=== PATIENT | female | born 1945 | race Caucasian/White ===

== ENCOUNTER 2024-10-20 12:02 | Emergency (ER) | payer MEDICARE, OTHER, SELFPAY ==
--- NOTE | ~2024-10-20 | XR_ITS ---
EXAMINATION: XR shoulder LT min 2V DATE: 10/20/2024 12:53 INDICATION: Pain. Cannot raise arm TECHNIQUE: 4 images of the left shoulder were obtained. COMPARISON: None FINDINGS: Bones appear osteopenic. Patchy consolidations in the lower lungs. 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 Moderate degenerative change in the left glenohumeral joint. Narrowing of the subacromial joint space. 5 mm radiodensity density in the subacromial bursa possibly calcification from calcific tendinitis. No dislocation of the left humeral head relative to the left glenohumeral joint. IMPRESSION: 1. No fracture. 2. 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 3. Moderate degenerative change in the left glenohumeral joint. 4. Narrowing of the left subacromial joint. Differential includes artifact from positioning versus rotator cuff pathology. 5. There is a 5 mm radiopaque density in the subacromial bursa possibly a calcification from calcific tendinitis. 6. Nonspecific patchy consolidations in the lower lobes. Frontal and lateral images of the chest is recommended for further assessment. Reviewed, dictated and finalized at location Q. IMPRESSION: 1. No fracture. 2. 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 3. Moderate degenerative change in the left glenohumeral joint. 4. Narrowing of the left subacromial joint. Differential includes artifact from positioning versus rotator cuff pathology. 5. There is a 5 mm radiopaque density in the subacromial bursa possibly a calci fication from calcific tendinitis. 6. Nonspecific patchy consolidations in the lower lobes. Frontal and lateral im ages of the chest is recommended for further assessment.
--- NOTE | ~2024-10-20 | XR_ITS ---
EXAMINATION: XR chest 2V 10/20/2024 13:20 INDICATION: Pulmonary findings TECHNIQUE:Frontal and lateral images of the chest were obtained. COMPARISON: None available at this time. FINDINGS: Small opacities in the lower lungs. Heart is mildly enlarged. No pneumothorax. No pleural effusion. No free air under the diaphragm. There is a 8 mm nodular density projecting over the right upper lobe. Differential includes pulmonary nodule or vessel on end. A chest CT is recommended. IMPRESSION: 1: There is a 8 mm nodular density projecting over the right upper lobe. Differential includes pulmonary nodule or vessel on end. A chest CT is recommended. 2. Small opacities in the mid and lower lungs which represents atelectasis/scarring or infiltrates. Reviewed, dictated and finalized at location Q. IMPRESSION: 1: There is a 8 mm nodular density projecting over the right upper lobe. Diffe rential includes pulmonary nodule or vessel on end. A chest CT is recommended. 2. Small opacities in the mid and lower lungs which represents atelectasis/scar ring or infiltrates.
[2024-10-20 12:07] VITALS: BP 145/60; PULSE 70; RESP 16; TEMP 36.4; O2SAT 98
[2024-10-20] MEDS: AZITHROMYCIN 500 MG TABLET PO (13:41)
--- OUTSIDE RECORDS SUMMARY | 2024-10-20 14:14 | XMS_ITS | Patient Health Record ---
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 Name Role Phone Philly Moser Primary Care Provider [phone] Ruth Ann Pan Unavailable [phone] Allergies No Known Allergies Results Component Value Reference Range Notes Hemoglobin A1c Reviewed date:05/29/2024 10:43:25 AM Interpretation: Performing Lab: Notes/Report: Basic Metabolic Panel (8) Reviewed date:05/29/2024 10:43:16 AM Interpretation: Performing Lab: Notes/Report: Reason For Referral No Information Medications Medication SIG (Take, Route, Frequency, Duration) Notes Start Date End Date Status Eliquis 5 MG Tablet 1 tablet Orally twic e a day Active Ketoconazole 2 % Cream 1 application Ext ernally twice a day Active Metoprolol Tartrate 50 MG Tablet 1 tablet with food Orally Twice a day Active Desmopressin Acetate 0.1 MG Tablet 1-2 tablets Orally once a day as needed Active Diclofenac Sodium 1 % Gel as directed Externally four times a day As needed Active A&D - Ointment as directed External ly daily Active Docusate Sodium 100 MG Capsule 1 capsule as needed Orally twice a day Active Losartan Potassium 100 MG Tablet 1 tablet Orally Once a day Active HM Antacid/Antigas 200-200-20 MG/5ML Suspension 10 mL as needed Orally Four times a day Active NIFEdipine ER 60 MG Tablet Extended Release 24 Hour 1 tablet on an empty stomach Orally Once a day Active hydrOXYzine HCl 10 MG Tablet 2 tablets Orally Once a day As needed Active Escitalopram Oxalate 10 MG Tablet 1 tablet Orally Once a day Active traMADol HCl 50 MG Tablet 1 tablet as ne eded Orally every 8 hrs Active Ergocalciferol 1.25 MG (73051 UT) Capsule 1 capsule Orally once a week Active Bumetanide 2 MG Tablet 1 tablet Orally t wice a day Active Immunizations Vaccine Route Administration Date Status Comme nts Pfizer COVID-19 Vaccine Unknown 10/22/2020 Administered Pfizer COVID-19 Vaccine Unknown 11/12/2020 Administered Social History Tobacco Use: Social History Observation Description Date Details (start date - stop date) Never Smoker NA - NA Social History Drug/Alcohol: Social Info Question Answer Notes Drugs Have you used drugs other than those for medical reasons in the past 12 months? No AUDIT-C (Standard) Did you have a drink containing alcohol in the past year? No Points 0 Interpretation Negative Tobacco Use: Social Info Question Answer Notes Tobacco Control (Standard) Tobacco use: Nonsmoker Tobacco use other than smoking: Are you an other tobac co user? No Problems Problem Type SNOMED Code ICD Code Onset Dates Problem Status W/U Status Risk Notes Problem Subclinical iodine deficiency hypothyroidism (disorder) (725697153) Subclinical iodine-deficiency hypothyroidism (E02) Active confirmed Problem Vitamin D deficiency (24637267) Vitamin D deficiency, unspecified (E55.9) Active confirmed Problem Recurrent major depression (55680702) Major depressive disorder, recurrent, unspecified (F33.9) Active confirmed Problem Hypertensive heart AND chronic kidney disease with congestive heart failure (35880056705612) Hypertensive heart and chronic kidney disease with heart failure and stage 1 through stage 4 chronic kidney disease, or unspecified chronic kidney disease (I13.0) Active confirmed Problem Heart disease (23332041) Heart disease, unspecified (I51.9) Active confirmed Problem Atherosclerosis of aorta (37660219) Atherosclerosis of aorta (I70.0) Active confirmed Problem Essential hypertension (22012138) Essential hypertension (I10) Active confirmed Problem Chronic diastolic heart failure (662557660) Chronic heart failure with preserved ejection fraction (I50.32) Active confirmed Problem Atrial fibrillation (40136996) Atrial fibrillation, unspecified type (I48.91) Active confirmed Problem Type II diabetes mellitus without complication (377548781) Controlled type 2 diabetes mellitus without complication, without long-term current use of insulin (E11.9) Active confirmed Problem Personal risk factor (899879209) Compliance with medication regimen (Z91.89) Active confirmed Vital Signs Heart Rate 68 /min 08/01/2024 Temperature 97.6 degrees Fahrenheit 08/01/2024 Respiratory Rate 16 /min 08/01/2024 Oximetry 100 % 08/01/2024 Blood pressure diastolic 66 mm Hg 08/01/2024 Blood pressure systolic 126 mm Hg 08/01/2024 Encounters Encounter Location Date Provider Diagnosis [address] [address] 10/30/2023 Philly Moser Atrial fibrillation, unspecified type I48.91 ; Essential hypertension I10 ; Chronic heart failure with preserved ejection fraction I50.32 ; Hypertensive heart and chronic kidney disease with heart failure and stage 1 through stage 4 chronic kidney disease, or unspecified chronic kidney disease I13.0 ; Atherosclerosis of aorta I70.0 ; Subclinical iodine-deficiency hypothyroidism E02 ; Vitamin D deficiency, unspecified E55.9 ; Major depressive disorder, recurrent, unspecified F33.9 and Controlled type 2 diabetes mellitus without complication, without long-term current use of insulin E11.[address] [address] 02/08/2024 Philly Moser Essential hypertensi on I10 ; Controlled type 2 diabetes mellitus without complication, without long-term current use of insulin E11.9 ; Atrial fibrillation, unspecified type I48.91 ; Chronic heart failure with preserved ejection fraction I50.32 ; Hypertensive heart and chronic kidney disease with heart failure and stage 1 through stage 4 chronic kidney disease, or unspecified chronic kidney disease I13.0 ; Atherosclerosis of aorta I70.0 ; Subclinical iodine-deficiency hypothyroidism E02 ; Vitamin D deficiency, unspecified E55.9 and Major depressive disorder, recurrent, unspecified F33.9 Lavelle Ribeiro [place] [address] [place] [address] 03/11/2024 Philly Moser Compliance with medication regimen Z91.[address] [address] 05/08/2024 Ruth Ann Pan Essential hypertensi on I10 ; Controlled type 2 diabetes mellitus without complication, without long-term current use of insulin E11.9 ; Atrial fibrillation, unspecified type I48.91 ; Chronic heart failure with preserved ejection fraction I50.32 ; Hypertensive heart and chronic kidney disease with heart failure and stage 1 through stage 4 chronic kidney disease, or unspecified chronic kidney disease I13.0 ; Atherosclerosis of aorta I70.0 ; Subclinical iodine-deficiency hypothyroidism E02 ; Vitamin D deficiency, unspecified E55.9 and Major depressive disorder, recurrent, unspecified F33.[address] [address] 08/01/2024 Ruth Ann Maxim Essential hypertensi on I10 ; Controlled type 2 diabetes mellitus without complication, without long-term current use of insulin E11.9 ; Atrial fibrillation, unspecified type I48.91 ; Chronic heart failure with preserved ejection fraction I50.32 ; Hypertensive heart and chronic kidney disease with heart failure and stage 1 through stage 4 chronic kidney disease, or unspecified chronic kidney disease I13.0 ; Atherosclerosis of aorta I70.0 ; Subclinical iodine-deficiency hypothyroidism E02 ; Vitamin D deficiency, unspecified E55.9 ; Major depressive disorder, recurrent, unspecified F33.9 and Nail fungus B35.[address] [address] 02/08/2024 Phillymarci Moser [address] [address] 05/30/[address] [address] 07/31/2024 Ruth Ann [facility] [address] [id number] 08/01/[address] [address] 08/04/2024 Ruth Ann Davis Assessments Encounter Date Diagnosis (ICD Code) Assessment Notes Treatment Notes Treatment Clinical Notes Section Notes 08/01/2024 Essential hypertension (ICD-10 - I10) BP stable. Well managed on current medication regimen. Continue with current treatment plan and monitoring. 03/11/2024 Compliance with medication regimen (ICD-10 - Z91.89) Patient nurse if concerned about patient being non-compliant with her medications due to recent weight gain. Patient states she has been taking her medication routinely and has not missing doses. We discussed the importance of her Bumex and the events that could occur if she was non-compliant. Understanding was verbalized by patient. 02/08/2024 Essential hypertension (ICD-10 - I10) BP stable but slightly elevated this visit. Denies signs or symptoms. Continue current medication regimen. Obtain BP BID x 1 week and forward results to office for provider to further review. 02/08/2024 Controlled type 2 diabetes mellitus without complication, without long-term current use of insulin (ICD-10 - E11.9) Last A1C 6.7% on 10/12/23. Denies symptoms of hypo/hyper glycemia. Not on medications. Well controlled with diet. Continue current treatment plan and monitoring. 05/08/2024 Essential hypertension (ICD-10 - I10) BP stable. Well managed on current medication regimen. Continue with current treatment plan and monitoring. 10/30/2023 Essential hypertension (ICD-10 - I10) BP stable but slightly elevated this visit. Denies signs or symptoms. Hypertensive end-organ damage includes kidney disease and heart failure. Continue current medication regimen. Obtain BP daily x 1 week and fax results to office. 10/30/2023 Atrial fibrillation, unspecified type (ICD-10 - I48.91) Rate controlled. Patient taking Eliquis. Denies symptoms of bleeding. On metoprolol for rate control. Well managed with current medication regimen. Continue current treatment plan and monitoring. 10/30/2023 Chronic heart failure with preserved ejection fraction (ICD-10 - I50.32) Denies signs or symptoms of fluid overload. 2+ edema noted to BLEs. Patient states edema is chronic. She is taking Bumex 2mg PO BID. Denies adverse signs or symptoms. Encouraged use of pneumatic compression stockings. Obtain CMP next lab draw date. 05/08/2024 Controlled type 2 diabetes mellitus without complication, without long-term current use of insulin (ICD-10 - E11.9) Last A1C 6.7% on 10/12/23. Denies symptoms of hypo/hyper glycemia. Not on medications. Well controlled with diet. Continue current treatment plan and monitoring. Draw A1C on next lab day. 08/01/2024 Controlled type 2 diabetes mellitus without complication, without long-term current use of insulin (ICD-10 - E11.9) A1C 6.7% on 10/12/23. Denies symptoms of hypo/hyper glycemia. Continue current treatment plan and monitoring. 05/14/24 A1C= 7.4% which was a slight increase, at the time of results wanted to start her on Jardiance 10mg daily, but patient wanted to try diet and exercise. A1C is due in August, to update when resulted. 02/08/2024 Atrial fibrillation, unspecified type (ICD-10 - I48.91) Rate controlled. Patient taking Eliquis. Denies symptoms of bleeding. On metoprolol for rate control. Well managed with current medication regimen. Continue current treatment plan and monitoring. 08/01/2024 Atrial fibrillation, unspecified type (ICD-10 - I48.91) Rate controlled. Patient taking Eliquis. Denies symptoms of bleeding. On metoprolol for rate control. Well managed with current medication regimen. Continue current treatment plan and monitoring. 08/01/2024 Chronic heart failure with preserved ejection fraction (ICD-10 - I50.32) Denies signs or symptoms of fluid overload. No edema noted to BLEs. She is taking Bumex 2mg PO BID. Denies adverse signs or symptoms. 02/08/2024 Chronic heart failure with preserved ejection fraction (ICD-10 - I50.32) Denies signs or symptoms of fluid overload. 2+ edema noted to BLEs. Patient states edema is chronic. She is taking Bumex 2mg PO BID. Denies adverse signs or symptoms. Encouraged use of pneumatic compression stockings. Last BNP 02/07/24 -368. New order provided to increase Bumex to 2mg PO TID x 3 days for increased edema. 10/30/2023 Hypertensive heart and chronic kidney disease with heart failure and stage 1 through stage 4 chronic kidney disease, or unspecified chronic kidney disease (ICD-10 - I13.0) Denies signs or symptoms. Well managed with current treatment plan. Last Cr 0.87 and eGFR 67 on 04/19/23. Avoid oral NSAIDs. 05/08/2024 Atrial fibrillation, unspecified type (ICD-10 - I48.91) Rate controlled. Patient taking Eliquis. Denies symptoms of bleeding. On metoprolol for rate control. Well managed with current medication regimen. Continue current treatment plan and monitoring. 10/30/2023 Atherosclerosis of aorta (ICD-10 - I70.0) Denies signs or symptoms. Delfin does not want to follow up with cardiology to discuss further management at this time. 05/08/2024 Chronic heart failure with preserved ejection fraction (ICD-10 - I50.32) Denies signs or symptoms of fluid overload. No edema noted to BLEs. She is taking Bumex 2mg PO BID. Denies adverse signs or symptoms. 02/08/2024 Hypertensive heart and chronic kidney disease with heart failure and stage 1 through stage 4 chronic kidney disease, or unspecified chronic kidney disease (ICD-10 - I13.0) Denies signs or symptoms. Well managed with current treatment plan. Last CMP 02/07/24- BUN-37, Commercial Drafter-1.1, eGFR-52. Avoid nephrotoxic medications when able. 08/01/2024 Hypertensive heart and chronic kidney disease with heart failure and stage 1 through stage 4 chronic kidney disease, or unspecified chronic kidney disease (ICD-10 - I13.0) Denies signs or symptoms. Well managed with current treatment plan. Last BMP 05/14/24 BUN-29, Commercial Drafter-1.0, eGFR-55. Avoid nephrotoxic medications when able. 08/01/2024 Atherosclerosis of aorta (ICD-10 - I70.0) Denies signs or symptoms. Patient does not want to follow up with cardiology to discuss further management at this time. 02/08/2024 Atherosclerosis of aorta (ICD-10 - I70.0) Denies signs or symptoms. Delfin does not want to follow up with cardiology to discuss further management at this time. 10/30/2023 Subclinical iodine-deficiency hypothyroidism (ICD-10 - E02) Last TSH and FT4 04/19/23. TSH- 6.04 and FT4 1.21. Denies signs or symptoms. Obtain TSH w/reflux next lab draw date. 05/08/2024 Hypertensive heart and chronic kidney disease with heart failure and stage 1 through stage 4 chronic kidney disease, or unspecified chronic kidney disease (ICD-10 - I13.0) Denies signs or symptoms. Well managed with current treatment plan. Last CMP 02/07/24- BUN-37, Commercial Drafter-1.1, eGFR-52. Avoid nephrotoxic medications when able. Draw BMP on next lab day. 05/08/2024 Atherosclerosis of aorta (ICD-10 - I70.0) Denies signs or symptoms. Patient does not want to follow up with cardiology to discuss further management at this time. 10/30/2023 Vitamin D deficiency, unspecified (ICD-10 - E55.9) Well managed with current medication regimen. Denies recent falls or injuries. Obtain Vitamin D level next lab draw date. 02/08/2024 Subclinical iodine-deficiency hypothyroidism (ICD-10 - E02) Last TSH 11/01/23- WNL. Denies signs or symptoms. Continue current treatment plan and monitoring. 08/01/2024 Subclinical iodine-deficiency hypothyroidism (ICD-10 - E02) Last TSH 11/01/23- WNL. Denies signs or symptoms. Continue current treatment plan and monitoring. 08/01/2024 Vitamin D deficiency, unspecified (ICD-10 - E55.9) Last vitamin D level 11/01/23- WNL. Well managed with current medication regimen. Denies recent falls or injuries. Continue current treatment plan. Order given to have Vit D level drawn when A1C is due. 02/08/2024 Vitamin D deficiency, unspecified (ICD-10 - E55.9) Last vitamin D level 11/01/23- WNL. Well managed with current medication regimen. Denies recent falls or injuries. Continue current treatment plan. 10/30/2023 Major depressive disorder, recurrent, unspecified (ICD-10 - F33.9) Denies symptoms at this time. Per staff patient became more depressed after her passed way in September 2022. Escitalopram initiated by previous provider earlier this year and effective. Continue current treatment plan and monitoring. 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 Denies signs or symptoms. Continue current treatment plan and monitoring. 05/08/2024 Vitamin D deficiency, unspecified (ICD-10 - E55.9) Last vitamin D level 11/01/23- WNL. Well managed with current medication regimen. Denies recent falls or injuries. Continue current treatment plan. 02/08/2024 Major depressive disorder, recurrent, unspecified (ICD-10 - F33.9) Denies symptoms at this time. Per staff patient became more depressed after her passed way in September 2022. Escitalopram initiated by previous provider earlier this year and effective. Continue current treatment plan and monitoring. 08/01/2024 Major depressive disorder, recurrent, unspecified (ICD-10 - F33.9) Denies symptoms at this time. Well managed on current medication regimen. Continue with current treatment plan and monitoring. 10/30/2023 Controlled type 2 diabetes mellitus without complication, without long-term current use of insulin (ICD-10 - E11.9) Last A1C 6.7% on 10/12/23. Not on medications. Well controlled with diet. Continue current treatment plan and monitoring. 08/01/2024 Nail fungus (ICD-10 - B35.1) Finger nail on left pointer finger is coming up with thick white/yellow build up noted. Script sent for Terbinafine HCL 1% cream apply BID x 4 weeks. _update provider on how the finger nail looks after the 4 weeks. 05/08/2024 Major depressive disorder, recurrent, unspecified (ICD-10 - F33.9) Denies symptoms at this time. Well managed on current medication regimen. Continue with current treatment plan and monitoring. 10/30/2023 Other Obtain CBC, CMP, Vitamin D, TSH w/reflux. Fax results to office. Continue current treatment plan. Staff to continue to monitor and report any changes. Patient education provided and questions/concern s addressed. Follow up in three months unless necessary sooner. 03/11/2024 Other Continue current treatment plan. Staff to continue to monitor and report any changes. Patient education provided and questions/concern s addressed. Follow up in three months unless necessary sooner. 02/08/2024 Other Continue current treatment plan. Staff to continue to monitor and report any changes. Patient education provided and questions/concern s addressed. Follow up in three months unless necessary sooner. 05/08/2024 Other Continue current treatment plan. Staff to continue to monitor and report any changes. Patient education provided and questions/concern s addressed. Follow up in three months unless necessary sooner. Please refer to facility EHR for current and accurate medication list and treatments. Reviewed HIPAA Right to Privacy Practices with patient/family/ca regiver. 08/01/2024 Other Continue current treatment plan. Staff to continue to monitor and report any changes. Patient education provided and questions/concern s addressed. Follow up in three months unless necessary sooner. Reviewed HIPAA Right to Privacy Practices with patient/family/ca regiver. Plan Of Treatment Pending Test Test Name Order Date Hemoglobin A1c 02/13/2025 Insurance Providers Payer Name Payer Address Payer Phone Subscriber Number Group Number Insured Name Patient Relationship to Insured Coverage Start Date Coverage End Date [employer] of [place] [address] [employer] [id number] Gaby Carey Self - patient is the insured Medical (General) History Medical History History ICD Code Atrial fibrillation, unspecified type I4 8.91 Hypertensive heart and chron ic kidney disease with heart failure and stage 1 through stage 4 chronic kidney disease, or unspecified chronic kidney disease I13.0 Major depressive disorder, recurrent, un specified F33.9 Atherosclerosis of aorta I70.0 Morbid obesity E66.01 Hypertension, unspecified type I10 Chronic heart failure with preserved eje ction fraction I50.32 Vitamin D deficiency, unspecified E55.9 Prediabetes R73.03 Subclinical iodine-deficiency hypothyroi dism E02 Nocturnal enuresis N39.44 Arthritis of both knees M17.0 Oxygen desaturation R09.02 Heart disease, unspecified I51.9 Surgical History Surgery Date(Month/Year) COLONOSCOPY 2013 HYSTERECTOMY 1979 KNEE ARTHROPLASTY- RIGHT 2003
--- NOTE | 2024-10-20 15:47 | ED_ITS ---
HPI - General Adult General Chief complaint: Extremity Injury, Upper Stated complaint: L should pain [id number] Time Seen by Provider: 10/20/24 13:02 History of Present Illness HPI narrative: Patient presenting here with 1 month of left shoulder pain, today she tried moving her shoulder and felt like it popped. Related Data Allergies Allergy/AdvReac Type Severity Reaction Status Date / Time No Known Allergies Allergy Verified 10/20/24 12:19 Review of Systems Review of Systems: All systems reviewed & are unremarkable except as noted in HPI and below Exam Narrative: EXAMINATION OF ORGAN SYSTEMS/BODY AREAS: Constitutional: Vital signs per nursing GENERAL:[No acute distress, non-toxic appearing.] HEAD: Normal with no signs of head trauma. EYES: EOMI, conjunctiva normal ENT: Hearing grossly intact LUNGS: Nonlabored breathing. HEART: [Regular rate and rhythm], normal radial pulse ABD: [Soft], [nontender to palpation] EXT: Diminished range of motion to left shoulder with some pain on certain flexion past 60? SKIN: [No rashes or lesions.] NEURO: [Alert and oriented x 3. No gross focal sensory or strength deficits.] PSYCH: Normal affect Course Vital Signs Vital signs: Vital Signs Temperature 97.5 F L 10/20/24 12:07 Pulse Rate 70 10/20/24 12:07 Respiratory Rate 16 10/20/24 12:07 Blood Pressure 145/60 H 10/20/24 12:07 Pulse Oximetry 98 10/20/24 12:07 Oxygen Delivery Room Air 10/20/24 12:07 Temperature 97.5 F L 10/20/24 12:07 Pulse Rate 70 10/20/24 12:07 Respiratory Rate 16 10/20/24 12:07 Blood Pressure 145/60 H 10/20/24 12:07 Pulse Oximetry 98 10/20/24 12:07 Oxygen Delivery Room Air 10/20/24 12:07 Medical Decision Making [facility] Narrative Medical decision making narrative: Patient presents with left shoulder pain, no recent injuries, she does have some pain with range of motion of the left shoulder. X-ray does show calcific tendinitis and possible rotator cuff pathology, also recommendation for chest x- ray. I did discuss this with the patient, she does admit that she has been coughing so x-ray of chest obtained, which shows some consolidations as well as a pulmonary nodule. Discussed this with patient, that she needs follow-up for a CT chest for the pulmonary nodule, she is provided follow-up information for orthopedics as well as a new primary care doctor so she can get established care and follow-up for the pulmonary nodule. Patient agreeable to this plan. Given in person and on paper instructions Vital Signs Vital Signs: Vital Signs Temperature 97.5 F L 10/20/24 12:07 Pulse Rate 70 10/20/24 12:07 Respiratory Rate 16 10/20/24 12:07 Blood Pressure 145/60 H 10/20/24 12:07 Pulse Oximetry 98 10/20/24 12:07 Oxygen Delivery Room Air 10/20/24 12:07 Temperature 97.5 F L 10/20/24 12:07 Pulse Rate 70 10/20/24 12:07 Respiratory Rate 16 10/20/24 12:07 Blood Pressure 145/60 H 10/20/24 12:07 Pulse Oximetry 98 10/20/24 12:07 Oxygen Delivery Room Air 10/20/24 12:07 Discharge Plan Discharge Clinical Impression: Calcific tendinitis, Pulmonary nodules Patient Disposition: Home Condition: Stable Instructions: Calcific Tendinitis (ED), Pulmonary Nodules (ED) Additional Instructions: Please try the medication as prescribed for your shoulder and follow-up with the orthopedic surgeon. Your chest x-ray does show a may have a slight pneumonia, please take the antibiotics, your x-ray also shows a possible spot on your lung, please follow- up with your doctor as you may need to get a CT scan of your chest for further evaluation. Patient Language: Polish Prescriptions: New prednisone 20 mg tablet 40 mg PO DAILY 4 Days Qty: 8 0RF azithromycin 250 mg tablet 250 mg PO DAILY 4 Days Qty: 4 0RF Rx Instructions: start on day 2 of therapy Follow-up/Referrals: PHYSICIAN NOT ON STAFF,NONSTAFF [Non-Staff] Rajan Perdomo MD [Physician, Family Practice] - 2 Days Naveed Frazier MD [Physician, Orthopedics] - 2 Days
== END 2024-10-20 15:03 | disposition home or self-care (01) ==
PROVIDERS: Emergency Provider Emergency Medicine
DX: M75.32 Calcific tendinitis of left shoulder (principal); R91.8 Other nonspecific abnormal finding of lung field
CPT/HCPCS: 71046; 73030; 99284; J7512

== ENCOUNTER 2025-02-13 14:03 | Inpatient (IN) | payer MEDICARE, OTHER, SELFPAY ==
[2025-02-13] VITALS (16 sets, daily range): BP systolic 109–156; BP diastolic 56–102; PULSE 72–90; RESP 14–25; TEMP 36.4–36.6; O2SAT 94–100; BMI 40.4
--- NOTE | ~2025-02-13 | CT_ITS ---
EXAMINATION: CT diagnostic chest wo con DATE: 02/15/2025 22:46 INDICATION: Lung nodule follow-up TECHNIQUE: Computed tomography (CT) of the chest was performed without intravenous contrast. The dose-length product was 614.69 mGy-cm. Automated exposure control and iterative reconstruction technique were employed. COMPARISON: Chest x-ray dated 02/13/2025 FINDINGS: Cardiomegaly. No significant pleural or pericardial effusion. Borderline size right paratracheal lymph node, likely reactive. Enlarged thyroid gland with small hypodense lesions measuring up to 1.7 cm and the left thyroid lobe. Recommend correlation with thyroid ultrasound on a nonemergent basis. There is dependent atelectasis. There are patchy groundglass opacities of the right lung. No endobronchial lesions. There are small pulmonary nodules measuring 2 mm or less, likely benign. There are bilateral areas of interlobular septal thickening. Exaggerated thoracic kyphosis. There is diffuse idiopathic skeletal hyperostosis (DISH) of the thoracic spine. IMPRESSION: 1. Patchy groundglass opacities with bilateral interlobular septal thickening compatible with interstitial lung disease; correlate with clinical history and prior imaging for stability or progression. 2: Cardiomegaly. 3: Enlarged thyroid gland with 1.7 cm hypodense left thyroid nodule. Recommend thyroid ultrasound for further characterization. Reviewed, dictated and finalized at location O. ERCIAL FRONT LOAD OPERATOR IMPRESSION: 1. Patchy groundglass opacities with bilateral interlobular septal thickening c ompatible with interstitial lung disease; correlate with clinical history and p rior imaging for stability or progression. 2: Cardiomegaly. 3: Enlarged thyroid gland with 1.7 cm hypodense left thyroid nodule. Recommend thyroid ultrasound for further characterization.
--- NOTE | ~2025-02-13 | XR_ITS ---
EXAMINATION: XR foot RT 2V, 02/13/2025 16:10 PROGRAMS MANAGER HISTORY: second and third toe pain COMPARISON: No comparisons available. Findings: Severe osteopenia. No acute fracture or osseous destruction. Postsurgical changes noted in the fibula. Moderate to severe degenerative changes. Soft tissues unremarkable. Impression: No acute fracture or malalignment. Reviewed, dictated and finalized at location P. RAMS MANAGER Impression: No acute fracture or malalignment.
--- NOTE | ~2025-02-13 | XR_ITS ---
XR chest 1V INDICATION:. 79 years Female ICU admission COMPARISON: None FINDINGS: A single view of the chest demonstrates enlarged heart. Patchy infiltrates bilaterally. There is no evidence of pneumothorax or pleural effusion. IMPRESSION: There are patchy infiltrates bilaterally. Reviewed, dictated and finalized at location S. ERENCE COORDINATOR
--- OUTSIDE RECORDS SUMMARY | 2025-02-13 16:03 | XMS_ITS | Encounter Summary ---
Author Organization [facility] Healthcare Address [address] [place] [address] Care Team Providers Care Service Desk Agent Name Role Phone Jordin Durán MD Unavailable Som Rivers DO Primary Care Provider [phone] Encounter Details Date Type Department Care Team (Late st Contact Info) Description 02/13/2025 Telephone [facility] Vascular and Vein Surgery [address] [place] [phone] Denisse Longoria, RN Social History Tobacco Use Types Packs/Day Years Used Date Smoking Tobacco: Never Smokeless Tobacco: Never Alcohol Use Standard Drinks/Week Comments No 0 (1 standard drink = 0.6 oz pur e alcohol) OASIS D0700: Social Isolation Answer Da te Recorded Frequency of experiencing loneliness or isolatio n Never 05/16/2023 OASIS A1250: Transportation Answer Date Recorded Lack of Transportation (Medical) No 05/16/2023 Lack of Transportation (Non-Medical) No 05/16/2023 Patient Unable or Declines to Respond No 05/16/2023 OASIS B1300: Health Literacy Answer Jovon e Recorded Frequency of needing help to read materials from doctor or pharmacy Never 05/16/2023 [facility] Utilities Answer Date Recorded In the past 12 months has e [employer], [employer], or [employer] threatened to shut off services in your home? No 04/19/2023 Humiliation, Afraid, Rape, and Kick questionnair e Answer Date Recorded Within the last year, have y ou been afraid of your partner or ex-partner? No 04/19/2023 Within the last year, have y ou been humiliated or emotionally abused in other ways by your partner or ex-partner? No Within the last year, have y ou been kicked, hit, slapped, or otherwise physically hurt by your partner or ex-partner? No 04/19/2023 Within the last year, have y ou been raped or forced to have any kind of sexual activity by your partner or ex-partner? No 04/19/2023 Social Connection and Isolation Panel Answer Date Recorded In a typical week, how many times do you talk on the phone with family, friends, or neighbors? Twice a week 09/20/2022 Frequency of Social Gatherings with Friends and Family Not on file 09/20/2022 Attends Confucianist Services Not on file 09/20 Active Member of Clubs or Organizations Not on f ile 09/20/2022 Attends Club or Organization Meetings Not on les e 09/20/2022 Marital Status Not on file 09/20/2022 AUDIT-C Answer Date Recorded Q1: How often do you have a drink containing alcohol? Never 04/19/2023 Q2: How many drinks containi ng alcohol do you have on a typical day when you are drinking? Patient does not drink Q3: How often do you have si x or more drinks on one occasion? Never 04/19/2023 Overall Financial Resource Strain (CARDIA) Answe r Date Recorded How hard is it for you to pa y for the very basics like food, housing, medical care, and heating? Not hard at all 04/19/2023 PHQ-2 Answer Date Recorded PHQ-2 Total Score 0 04/19/2023 Hunger Vital Sign Answer Date Recorded Within the past 12 months, y ou worried that your food would run out before you got the money to buy more. Never true 04/19/19 24 Within the past 12 months, t he food you bought just didn't last and you didn't have money to get more. Never true 04/19/2023 PRAPARE - Transportation Answer Date Re corded In the past 12 months, has l ack of transportation kept you from medical appointments or from getting medications? No 03/30 In the past 12 months, has l ack of transportation kept you from meetings, work, or from getting things needed for daily living? No 04/19/2023 Housing Stability Vital Sign Answer Jovon e Recorded In the last 12 months, was t here a time when you were not able to pay the mortgage or rent on time? No 04/19/2023 In the last 12 months, how many places have you lived? 1 04/19/2023 In the last 12 months, was t here a time when you did not have a steady place to sleep or slept in a mcc (including now)? 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 Giselle stated she will send a photo of the patient's toes so it can be assessed and then discuss recommendations. Please call Giselle at [phone] RN called Giselle back and recommended the patient to go to the ED since it is a new symptoms of thetoe. AID AID documented in this encounter Plan of Treatment Not on file documented as of this encounter Visit Diagnoses Not on filedocumented in this encounter Care Teams Service Desk Agent Relationship Specialty Start Date End Date Som Rivers DO [address] [place] [id number] PCP - General Internal Medicine 12/18/24 Jordin Durán MD Consulting Physician Cardiology 03/25/20 documented as of this encounter
--- OUTSIDE RECORDS SUMMARY | 2025-02-13 16:03 | XMS_ITS | Patient Health Record ---
Author Organization [facility] Address [address] [place] [id number] Care Team Providers Care Wood Gang Sawyer Name Role Phone Ruth Ann Pan Primary Care Provider Philly Moser Unavailable [phone] Allergies Allergen (clinical drug ingredient) Drug/Non Drug Allergy documented on EMR Reaction Allergy Type Onset Date Status No Known Drug Allergy Unknown Drug Allergy Active Results Component Value Reference Range Notes Ultrasound : Artery Doppler Low Ext Bilat Reviewed date:12/26/2024 10:47:23 AM Interpretation: Performing Lab: Notes/Report: Hemoglobin A1c Reviewed date:05/29/2024 10:43:25 AM Interpretation: Performing Lab: Notes/Report: Basic Metabolic Panel (8) Reviewed date:05/29/2024 10:43:16 AM Interpretation: Performing Lab: Notes/Report: TSH+Free T4 Reviewed date:12/26/2024 10:47:56 AM Interpretation: Performing Lab: Notes/Report: Reason For Referral Reason PVD Diagnosis 1 PVD (peripheral vasc ular disease) (I73.9) Referral Organization [facility] Referring Provider First Name Ruth Ann Referring Provider Last Name Maxim Referred Organization [facility] Referred Address [address], [place],[address], Referred Provider Specialty Vascular Luiz sandra Referral Priority Routine Referral Appointment Date 01/28/2025 Reason Home health for sore on R foot Diagnosis 1 Wound of right foot (S91.301A) Referral Organization [facility] Referring Provider First Name Ruth Ann Referring Provider Last Name Maxim Referred Organization [facility] Referred Address [address], [place],[address] Referred Provider Specialty Other Medica l Care General Notes Lucille Mathis 025 03:30:48 PM 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/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 >[facility] eval 12/18 Referral Priority Routine Referral Appointment Date 12/18/2024 Reason HH to eval and treat for wounds to feet Diagnosis 1 Unspecified open wou nd, unspecified lower leg, initial encounter (J21.727E) Referral Organization [facility] Referring Provider First Name Ruth Ann Referring Provider Last Name Maxim Referred Organization [facility] [place] Referred Address [address] [place], [place],[address],[place] Referred Provider Specialty Other Medica l Care Referral Priority Routine Medications Medication SIG (Take, Route, Frequency, Duration) Notes Start Date End Date Status hydrOXYzine HCl 10 MG Tablet 2 tablets Orally Once a day As needed Active Eliquis 5 MG Tablet 1 tablet Orally twic e a day Active Ketoconazole 2 % Cream 1 application Ext ernally twice a day Active Docusate Sodium 100 MG Capsule 1 capsule as needed Orally twice a day Active Bumetanide 2 MG Tablet 1 tablet Orally t wice a day Active Ergocalciferol 1.25 MG (16255 UT) Capsule 1 capsule Orally once a week Active A&D - Ointment as directed External ly daily Active Losartan Potassium 100 MG Tablet 1 tablet Orally Once a day Active Terbinafine HCl 1 % Cream 1 application Externally twice a day Active Metoprolol Tartrate 50 MG Tablet 1 tablet with food Orally Twice a day Active Cough Drops - Lozenge as directed Mouth/Throat Active Diclofenac Sodium 1 % Gel as directed Externally four times a day As needed Active Acetaminophen 325 MG Tablet 2 tablets Orally every 6 hrs As needed Active HM Antacid/Antigas 200-200-20 MG/5ML Suspension 10 mL as needed Orally Four times a day Active Immunizations Vaccine Route Administration [...] Notes Problem 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) Active confirmed Problem Vitamin D deficiency (61819526) Vitamin D deficiency, unspecified (E55.9) Active confirmed Problem Recurrent major depression (08095930) Major depressive disorder, recurrent, unspecified (F33.9) Active confirmed Problem Hypertensive heart AND chronic kidney disease with congestive heart failure (56739235898400) Hypertensive heart and chronic kidney disease with heart failure and stage 1 through stage 4 chronic kidney disease, or unspecified chronic kidney disease (I13.0) Active confirmed Problem Heart disease (37431080) Heart disease, unspecified (I51.9) Active confirmed Problem Atherosclerosis of aorta (50239965) Atherosclerosis of aorta (I70.0) Active confirmed Problem Essential hypertension (42202010) Essential hypertension (I10) Active confirmed Problem Chronic diastolic heart failure (058226369) Chronic heart failure with preserved ejection fraction (I50.32) Active confirmed Problem Atrial fibrillation (20321650) Atrial fibrillation, unspecified type (I48.91) Active confirmed Problem Hearing loss (42359004) Decreased hearing of both ears (H91.93) Active confirmed Problem Peripheral vascular disease (814861277) PVD (peripheral vascular disease) (I73.9) Active confirmed Problem Type II diabetes mellitus without complication (348292162) Controlled type 2 diabetes mellitus without complication, without long-term current use of insulin (E11.9) Active confirmed Problem Personal risk factor (704664656) Compliance with medication regimen (Z91.89) Active confirmed Vital Signs Heart Rate 82 /min 02/05/2025 Temperature 97.4 degrees Fahrenheit 12/11/2024 Respiratory Rate 18 /min 02/05/2025 Oximetry 92 % 02/05/2025 Blood pressure diastolic 63 mm Hg 02/05/2025 Blood pressure systolic 112 mm Hg 02/05/2025 Encounters Encounter Location Date Provider Diagnosis [facility] [address] [place] [address] 03/11/2024 Philly Moser Compliance with medication regimen Z91.[address] [address] 05/08/2024 Ruth Ann Pan Essential hypertensi on [...] and Major depressive disorder, recurrent, unspecified F33.[address] [address] 08/01/2024 Ruth Ann Pan Essential hypertensi on I10 [...] recurrent, unspecified F33.9 and Nail fungus B35.[address] [address] 10/30/2024 Ruth Ann Pan Essential hypertensi on I10 [...] recurrent, unspecified F33.9 and Nail fungus B35.[address] [address] 11/27/2024 Ruth Ann Pan Decreased hearing of both ears H91.93 [facility] [address] [id number] 12/11/2024 Ruth Ann Pan Skin growth D49.2 [facility] [place] [address] [place] [address] 02/05/2025 Ruth Ann Pan Essential hypertensi on I10 [...] Major depressive disorder, recurrent, unspecified F33.9 and Delayed wound healing T14.8XXD [facility] [place] [address] [place] [address] 05/08/2024 Ruth Ann Pan [facility] [place] [address] [place] [address] 05/30/2024 Ruth Ann Pan [facility] [place] [address] [place] [address] 07/31/2024 Ruth Ann Pan [facility] [address] [id number] 08/01/2024 Ruth Ann Pan [facility] [place] [address] [place] [address] 08/01/2024 Ruth Ann Pan [facility] [place] [address] [place] [address] 08/04/2024 Ruth Ann Pan [facility] [place] [address] [place] [address] 10/30/2024 Ruth Ann Pan [facility] [place] [address] [place] [address] 11/21/2024 Ruth Ann Pan [facility] [address] [id number] 11/27/2024 Ruth Ann Pan [facility] [place] [address] [place] [address] 11/27/2024 Ruth Ann Pan [facility] [place] [address] [place] [address] 12/09/2024 [facility] [address] [id number] 12/11/2024 Ruth Ann Pan [facility] [place] [address] [place] [address] 01/11/2025 Ruth Ann Pan [facility] [place] [address] [place] [address] 01/27/2025 Ruth Ann Pan [facility] [place] [address] [place] [address] 02/02/2025 Ruth Ann Pan [facility] [place] [address] [place] [address] 02/05/2025 Ruth Ann Pan [facility] [place] [address] [place] [address] 02/13/2025 Ruth Ann Pan [facility] [place] [address] [place] [address] 02/13/2025 Ruth Ann Pan Assessments Encounter Date Diagnosis (ICD Code) Assessment Notes Treatment Notes Treatment Clinical Notes Section Notes 02/05/2025 Essential hypertension (ICD-10 - I10) BP stable. Well managed on current medication regimen. Continue with current treatment plan and monitoring. 12/11/2024 Skin growth (ICD-10 - D49.2) Patient reported that she had a sore on her right foot upon examination. It looks to be like an old blood blister on the second toe on the right foot along with what appears to be a growth of some type could be a callus noted to the second and third toe of the right foot. An order was previously given to get arterial Doppler due to check to see if her blood flow is good due to the area not seeming to heal. Patient reports she has had the issue for a few years, but she has never told anybody because she has been trying to take care of it by herself. She reports that the area is sore when it is knocked or hit on anything. Order was given to apply terbinafine 1% b.i.d. to the toes that were affected and also a referral was sent to see a foot doctor. 11/27/2024 Decreased hearing of both ears (ICD-10 - H91.93) Patient has been having a decrease in her hearing. She reports that she is very muffled and hard to understand people at the dining room table. Upon assessment, no wax was noted, but bilateral eardrums did appear cloudy and fluid noted. New order given today for Ciprodex four drops in each ear, b.i.d. x7 days. 10/30/2024 Essential hypertension (ICD-10 - I10) BP stable. Well managed on current medication regimen. Continue with current treatment plan and monitoring. 08/01/2024 Essential hypertension (ICD-10 - I10) BP stable. Well managed on current medication regimen. Continue with current treatment plan and monitoring. 05/08/2024 Essential [...] was non-compliant. Understanding was verbalized by patient. 05/08/2024 Controlled type 2 diabetes mellitus without complication, without long-term current use of insulin (ICD-10 - E11.9) Last A1C 6.7% on 10/12/23. Denies symptoms of hypo/hyper glycemia. Not on medications. Well controlled with diet. Continue current treatment plan and monitoring. Draw A1C on next lab day. 02/05/2025 Controlled type 2 diabetes mellitus without complication, without long-term current use of insulin (ICD-10 - E11.9) A1C 6.7% on 10/12/23. Denies symptoms of hypo/hyper glycemia. Continue current treatment plan and monitoring. 05/14/24 A1C= 7.4% which was a slight increase, at the time of results wanted to start her on Jardiance 10mg daily, but patient wanted to try diet and exercise. On 08/02/2024, A1c was improved at 7.0%. No new orders were given at the time of results. Continue to monitor and repeat A1c in six months. A1c is ordered for next lab day, which will be 02/12/2025 08/01/2024 Atrial fibrillation, unspecified type (ICD-10 - I48.91) Rate controlled. Patient taking Eliquis. Denies symptoms of bleeding. On metoprolol for rate control. Well managed with current medication regimen. Continue current treatment plan and monitoring. 08/01/2024 Controlled type 2 diabetes mellitus without [...] due in August, to update when resulted. 10/30/2024 Controlled type 2 diabetes mellitus without complication, without long-term current use of insulin (ICD-10 - E11.9) A1C 6.7% on 10/12/23. Denies symptoms of hypo/hyper glycemia. Continue current treatment plan and monitoring. 05/14/24 A1C= 7.4% which was a slight increase, at the time of results wanted to start her on Jardiance 10mg daily, but patient wanted to try diet and exercise. On 08/02/2024, A1c was improved at 7.0%. No new orders were given at the time of results. Continue to monitor and repeat A1c in six months. 02/05/2025 Atrial fibrillation, unspecified type (ICD-10 - I48.91) Rate controlled. Patient taking Eliquis. Denies symptoms of bleeding. On metoprolol for rate control. Well managed with current medication regimen. Continue current treatment plan and monitoring. 02/05/2025 Chronic heart failure with preserved ejection fraction (ICD-10 - I50.32) Denies signs or symptoms of fluid overload. No edema noted to BLEs. She is taking Bumex 2mg PO BID. Denies adverse signs or symptoms. 10/30/2024 Atrial fibrillation, unspecified type (ICD-10 - I48.91) [...] PO BID. Denies adverse signs or symptoms. 05/08/2024 Atrial fibrillation, unspecified type (ICD-10 - I48.91) Rate controlled. Patient taking Eliquis. Denies symptoms of bleeding. On metoprolol for rate control. Well managed with current medication regimen. Continue current treatment plan and monitoring. 05/08/2024 Chronic heart failure with preserved ejection fraction (ICD-10 - I50.32) Denies signs or symptoms of fluid overload. No edema noted to BLEs. She is taking Bumex 2mg PO BID. Denies adverse signs or symptoms. 08/01/2024 Hypertensive heart and chronic kidney disease with heart failure and stage 1 through stage 4 chronic kidney disease, or unspecified chronic kidney disease (ICD-10 - I13.0) Denies signs or symptoms. Well managed with current treatment plan. Last BMP 05/14/24 BUN-29, Ball Machine Operator-1.0, eGFR-55. Avoid nephrotoxic medications when able. 02/05/2025 Hypertensive heart and chronic kidney disease with heart failure and stage 1 through stage 4 chronic kidney disease, or unspecified chronic kidney disease (ICD-10 - I13.0) Denies signs or symptoms. Well managed with current treatment plan. Last BMP 05/14/24 BUN-29, Ball Machine Operator-1.0, eGFR-55. Avoid nephrotoxic medications when able. 10/30/2024 Chronic heart failure with preserved ejection fraction (ICD-10 - I50.32) Denies signs or symptoms of fluid overload. No edema noted to BLEs. She is taking Bumex 2mg PO BID. Denies adverse signs or symptoms. 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 Well managed with current treatment plan. Last BMP 05/14/24 BUN-29, Ball Machine Operator-1.0, eGFR-55. Avoid nephrotoxic medications when able. 02/05/2025 Atherosclerosis of aorta (ICD-10 - I70.0) Denies signs or symptoms. Patient does not want to follow up with cardiology to discuss further management at this time. 08/01/2024 Atherosclerosis of aorta (ICD-10 - I70.0) Denies signs or symptoms. Patient does not want to follow up with cardiology to discuss further management at this time. 05/08/2024 Hypertensive heart and chronic kidney disease with heart failure and stage 1 through stage 4 chronic kidney disease, or unspecified chronic kidney disease (ICD-10 - I13.0) Denies signs or symptoms. Well managed with current treatment plan. Last CMP 02/07/24- BUN-37, Ball Machine Operator-1.1, eGFR-52. Avoid nephrotoxic medications when able. Draw BMP on next lab day. 05/08/2024 Atherosclerosis of aorta (ICD-10 - I70.0) Denies signs or symptoms. Patient does not want to follow up with cardiology to discuss further management at this time. 08/01/2024 Subclinical iodine-deficiency hypothyroidism (ICD-10 - E02) Last TSH 11/01/23- WNL. Denies signs or symptoms. Continue current treatment plan and monitoring. 02/05/2025 Subclinical iodine-deficiency hypothyroidism (ICD-10 - E02) Last TSH 11/01/23- WNL. Denies signs or symptoms. Continue current treatment plan and monitoring. TSH and free T4 were drawn on 11/12/2024 and were within normal limits. 10/30/2024 Atherosclerosis of aorta (ICD-10 - I70.0) Denies signs or symptoms. Patient does not want to follow up with cardiology to discuss further management at this time. 10/30/2024 Subclinical iodine-deficiency hypothyroidism (ICD-10 - E02) Last TSH 11/01/23- WNL. Denies signs or symptoms. Continue current treatment plan and monitoring. Draw TSH and free T4 on next lab day. 02/05/2025 Vitamin D deficiency, unspecified (ICD-10 - E55.9) Last vitamin D level 11/01/23- WNL. Well managed with current medication regimen. Denies recent falls or injuries. Continue current treatment plan. On 08/12/2024, vitamin D level was within normal limits. 08/01/2024 Vitamin D deficiency, unspecified (ICD-10 - E55.9) Last vitamin D level 11/01/23- WNL. Well managed with current medication regimen. Denies recent falls or injuries. Continue current treatment plan. Order given to have Vit D level drawn when A1C is due. 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 Denies signs or symptoms. Continue current treatment plan and monitoring. 05/08/2024 Vitamin D deficiency, unspecified (ICD-10 - E55.9) Last vitamin D level 11/01/23- WNL. Well managed with current medication regimen. Denies recent falls or injuries. Continue current treatment plan. 08/01/2024 Major depressive disorder, recurrent, unspecified (ICD-10 - F33.9) Denies symptoms at this time. Well managed on current medication regimen. Continue with current treatment plan and monitoring. 02/05/2025 Major depressive disorder, recurrent, unspecified (ICD-10 - F33.9) Denies symptoms at this time. Well managed on current medication regimen. Continue with current treatment plan and monitoring. 10/30/2024 Vitamin D deficiency, unspecified (ICD-10 - E55.9) Last vitamin D level 11/01/23- WNL. Well managed with current medication regimen. Denies recent falls or injuries. Continue current treatment plan. On 08/12/2024, vitamin D level was within normal limits. 10/30/2024 Major depressive disorder, recurrent, unspecified (ICD-10 - F33.9) Denies symptoms at this time. Well managed on current medication regimen. Continue with current treatment plan and monitoring. 05/08/2024 Major depressive disorder, recurrent, unspecified (ICD-10 - F33.9) Denies symptoms at this time. Well managed on current medication regimen. Continue with current treatment plan and monitoring. 08/01/2024 Nail fungus (ICD-10 - B35.1) Finger nail on left pointer finger is coming up with thick white/yellow build up noted. Script sent for Terbinafine HCL 1% cream apply BID x 4 weeks. _update provider on how the finger nail looks after the 4 weeks. 10/30/2024 Nail fungus (ICD-10 - B35.1) Fingernail no longer appears to have yellow buildup or fungus noted. Continue to monitor and update with any changes. 02/05/2025 Delayed wound healing (ICD-10 - T14.8XXD) Patient was seen in November about wounds to the second and third toe on the right foot that have not been healing. Patient reported that she has had them for a while, but she has been trying to take care of them, so she had not let the staff know. At that time, Dopplers were done on 12/16/2024 and showed that she had severe peripheral vascular disease. Order was sent at that time for a vascular referral. Patient has seen vascular since the referral. They did do another Doppler on her legs, but they forgot to do a Doppler on her feet. So she is going back on 03/04/2025 for that. Continue to monitor the feet daily for worsening conditions. 03/11/2024 Other Continue current treatment plan. Staff to continue to monitor and report any changes. Patient education provided and questions/concern s addressed. Follow up in three months unless necessary sooner. 12/11/2024 Other Continue current treatment plan. Staff to continue to monitor and report any changes. Patient education provided and questions/concern s addressed. Follow up in 3 months unless necessary sooner. 05/08/2024 Other Continue current treatment plan. Staff to continue to monitor and report any changes. Patient education provided and questions/concern s addressed. Follow up in three months unless necessary sooner. Please refer to facility EHR for current and accurate medication list and treatments. Reviewed HIPAA Right to Privacy Practices with patient/family/ca regiver. 11/27/2024 Other Continue current treatment plan. Staff to continue to monitor and report any changes. Patient education provided and questions/concern s addressed. Follow up in 2-4 weeks unless necessary sooner. 08/01/2024 Other Continue current treatment plan. Staff to continue to monitor and report any changes. Patient education provided and questions/concern s addressed. Follow up in three months unless necessary sooner. Reviewed HIPAA Right to Privacy Practices with patient/family/ca regiver. 10/30/2024 Other Continue current treatment plan. Staff to continue to monitor and report any changes. Patient education provided and questions/concern s addressed. Follow up in three months unless necessary sooner. 02/05/2025 Other Patient with multiple chronic conditions, each requiring ongoing management and coordination of care. Reviewed and interpreted most recent laboratory results available, diagnostic studies, and prior specialist notes. Staff to continue to monitor and report any changes. Patient education provided and questions/concern s addressed. Close follow-up required; reassess in 3 months or sooner if condition worsens. Draw CBC, CMP, BNP, vitamin D and vitamin B12 level on next lab day, which will be 02/12/2025. Plan Of Treatment Pending Test Test Name Order Date Hemoglobin A1c 02/13/2025 Future Test Test Name Order Date Hemoglobin A1c 02/12/2025 Vitamin B12 02/12/2025 Vitamin D, 25-Hydroxy 02/12/2025 B-Type Natriuretic Peptide 02/12/2025 Comp. Metabolic Panel (14) 02/12/2025 CBC 02/12/2025 Insurance Providers Payer Name Payer Address Payer Phone Subscriber Number Group Number Insured Name Patient Relationship to Insured Coverage Start Date Coverage End Date [employer] of [place] [address] [place] [id number] Gaby Carey Self - patient is the [...]
--- OUTSIDE RECORDS SUMMARY | 2025-02-13 16:03 | XMS_ITS | Clinical Summary ---
Author Organization [facility] Address [address] [place] [address] Care Team Providers Care Stock Plan Administrator Name Role Phone Jordin Durán MD Unavailable [phone] Som Rivers DO Primary Care Provider [phone] Allergies No known active allergies Medications ketoconazole (NIZORAL) 2 % cream Apply topically 2 (two) times a day 15 g 1 Active aluminum-magnesi um hydroxide-simeth icone (MAALOX) suspension 200-200-20 mg/5 mL Take by mouth Active docusate sodium (COLACE) 100 mg capsuleIndicatio ns:constipation Take 1 capsule (100 mg total) by mouth 2 (two) times a day as needed for constipation 1 Active hydrOXYzine (ATARAX) 10 mg tabletIndication s:Recurrent mild major depressive disorder with anxiety TAKE 1 TO 2 TABLETS NIGHTLY NEEDED FOR ANXIETY 180 tablet 3 3 Active diclofenac sodium (VOLTAREN) 1 % gelIndications:O steoarthritis of the Knee Apply 4 g topically 4 (four) times a day as needed (pain) To left knee 100 g 3 4 Active vitamin A and D ointmentIndicati ons:skin irritation Apply 1 Application topically daily 368.5 g 4 Active ergocalciferol (VITAMIN D) 50,000 unit capsuleIndicatio ns:Vitamin D Deficiency Take 1 capsule (50,000 Units total) by mouth once a week 12 capsule 1 4 Active traMADoL (ULTRAM) 50 mg tabletIndication s:Pain Take 1 tablet (50 mg total) by mouth every 8 (eight) hours as needed for pain 90 tablet 4 Active metoprolol tartrate (LOPRESSOR) 50 mg immediate release tabletIndication s: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) Take 1 tablet (50 mg total) by mouth 2 (two) times a day 180 tablet 4 Active losartan (COZAAR) 100 mg tabletIndication s:hypertension Take 1 tablet (100 mg total) by mouth daily 90 tablet 4 Active bumetanide (BUMEX) 2 mg tabletIndication s: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),Chronic heart failure with preserved ejection fraction Take 1 tablet (2 mg total) by mouth 2 (two) times a day before breakfast and lunch 180 tablet 4 Active NIFEdipine (NIFEdipine CC) 60 mg 24 hr tabletIndication s: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) Take 1 tablet (60 mg total) by mouth daily 90 tablet 4 Active escitalopram (LEXAPRO) 10 mg tabletIndication s:Anxiety with Depression Take 1 tablet (10 mg total) by mouth daily 90 tablet 4 Active nitrofurantoin monohydrate (MACROBID) 100 mg capsule 4 Active Eliquis 5 mg tabletIndication s:Paroxysmal atrial fibrillation (HCC) TAKE 1 TABLET TWICE A DAY 180 tablet 3 5 Active Active Problems Problem Noted Date Diagnosed Date PVD (peripheral vascular disease) 02/06/2025 Assessment & Plan (02/06/2025 2:28 PM WOOD HEEL FLAP TRIMMER): Calluses to the right 2nd and 3rd toe, otherwise no symptoms suggesting life- limiting claudication or ischemic rest pain. Formal arterial Doppler ordered for further evaluation, recommend 81 mg ASA and statin therapy. 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 No dispenses within last 12 month per Epic refill history Some functional incontinence today. Not currently requiring incontinence supplies. Remove desmopressin from med list today Assessment & Plan (04/19/2023 11:44 AM WOOD HEEL FLAP TRIMMER): Desmopressin 0.1 - 0.2 mg QHS Assessment & Plan (09/18/2022 6:48 AM CDT): Desmopressin 0.1 - 0.2 mg QHS Assessment & Plan (04/12/2021 9:29 PM WOOD HEEL FLAP TRIMMER): Desmopressin 0.1 - 0.2 mg QHS Callous ulcer, limited to breakdown of skin 11/26 Assessment & Plan (09/18/2022 1:41 PM CDT): I think she was seeing Dr. Nguyen (Podiatry) for this, but now she has a Tumbler Drier Operator who comes to her home. Dr. Jules. Possibly Details are unclear. It sounds like she is scheduled for surgery soon, or maybe she needs to call to schedule. Assessment & Plan (03/21/2022 11:13 AM WOOD HEEL FLAP TRIMMER): Continue podiatry care Recommend washing daily with mild soap and water Keep clean and dry She reports her home health nurse does dressing changes twice weekly Assessment & Plan (04/13/2021 7:42 PM WOOD HEEL FLAP TRIMMER): Right 3rd toe and left 2nd toe Her toe nails have been well cared for since her last visit. The ulcer on her right 3rd toe was present at her last office visit, and has improved. The ulcer on her left second toe is new, and that toe is red. Apparently the occupational therapist assistants prescribed doxycycline yesterday, but it looks like the prescription was sent to [facility] instead of her local pharmacy I have sent the prescription to her local pharmacy ABIs normal since her last office visit here. Recommend keep areas clean with bar soap and water daily. Continue Podiatry care Assessment & Plan (12/08/2020 4:31 PM CDT): Alarming looking ulcer on 3rd toe right foot Decreased pulses bilaterally Likely due to poor footwear Recommend ABIs to evaluate for blood flow and perfusion Referral to Podiatry Chronic renal failure, stage 3a 12/07/2020 Assessment & Plan (08/21/2023 5:00 PM CDT): 11/2020 - Cr 0.92, eGFR 60 Urine microalb negative 02/2022 - Cr 1.06, eGFR 54 08/2022 - Cr 1.00, eGFR 57 Urine microalb negative Kidney Failure Risk Score 22 Points 5-year risk kidney failure < 5.0% 04/19/2023 - Cr 0.87, eGFR 67 K+ 5.0 stable Avoid oral NSAIDs Labs today for monitoring Assessment & Plan (04/19/2023 12:38 PM WOOD HEEL FLAP TRIMMER): 11/2020 - Cr 0.92, eGFR 60 Urine microalb negative 02/2022 - Cr 1.06, eGFR 54 08/2022 - Cr 1.00, eGFR 57 Urine microalb negative Kidney Failure Risk Score 22 Points 5-year risk kidney failure < 5.0% Labs today for monitoring Avoid oral NSAIDs Assessment & Plan (09/18/2022 7:51 PM CDT): 11/2020 - Cr 0.92, eGFR 60 Urine microalb negative 02/2022 - Cr 1.06, eGFR 54 09/18/2022 - Cr 1.00, eGFR 57 Urine microalb negative Kidney Failure Risk Score 22 Points 5-year risk kidney failure < 5.0% stable Assessment & Plan (04/12/2021 9:27 PM WOOD HEEL FLAP TRIMMER): 11/2020 - Cr 0.92, eGFR 60 Well controlled Assessment & Plan (12/08/2020 4:26 PM CDT): Labs ordered for monitoring at 08/18/2020 office visit, but the lab work was not done Labs ordered again today Vitamin D deficiency 08/18/2020 Assessment & Plan (08/21/2023 9:55 AM CDT): 08/2022 - 25 (OH) Vit D 36 (N) 04/19/2023 - 25(OH) Vit D 21 (L) Weekly supplemental Vitamin D Assessment & Plan (04/19/2023 11:43 AM WOOD HEEL FLAP TRIMMER): 08/2022 - 25 (OH) Vit D 36 (N) Assessment & Plan (09/18/2022 7:52 PM CDT): 09/18/2022 - 25 (OH) Vit D 36 (N) Assessment & Plan (04/12/2021 9:26 PM WOOD HEEL FLAP TRIMMER): 05/2020 - 25(OH) Vit D 54 Supplemental Vit D stopped at that time 11/2020 - 25(OH) Vit D 43 Assessment & Plan (08/18/2020 6:47 AM CDT): 05/2020 - 25(OH) Vit D 54 Supplemental Vit D stopped at that time Chronic heart failure with preserved ejection fr action 06/22/2020 Assessment & Plan (08/21/2023 5:05 PM CDT): 02/2020 - ECHO - Nl LV size, Mild conc LVH, Castillo dysfxn, EF 56 %; severe LAE; Mild aortic stenosis; Mod pulm HTN; Moderate to severe TR; Small pericardial effusion. 04/19/2023 - NT-proBNP 3164 Bumetanide 2 mg BID Furosemide decreased from 40 mg daily to 40 mg every other day 06/23/2020 Increased back to 40 mg daily 2023 Changed furosemide to bumetanide 2 mg BID last office visit (Mar 2023) Swelling started getting worse in September 2022 (around the time her ) Encouraged daily use of Pneumatic Compression stockings. She continues to decline further evaluation and treatment for JOSÉ MIGUEL Lower extremity edema has improved since last office visit Stable Class III symptoms Assessment & Plan (04/19/2023 12:38 PM WOOD HEEL FLAP TRIMMER): 02/2020 - ECHO - Nl LV size, Mild conc LVH, Castillo dysfxn, EF 56 %; severe LAE; Mild aortic stenosis; Mod pulm HTN; Moderate to severe TR; Small pericardial effusion. Furosemide 40 mg daily Poor control. Furosemide decreased from 40 mg daily to 40 mg every other day 06/23/2020 Increased back to 40 mg daily 2023 Lower extremity edema not much improved on the daily dose. Pulmonary exam clear Swelling started getting worse in September 2022 (around the time her ) Will try change furosemide to bumetanide 2 mg BID. Encouraged daily use of Pneumatic Compression stockings. She continues to decline further evaluation and treatment for JOSÉ MIGUEL Assessment & Plan (03/28/2023 9:09 AM WOOD HEEL FLAP TRIMMER): Increase furosemide 40 mg daily for 1 month, follow-up with Dr. Cuadra at Medicare annual wellness visit Assessment & Plan (03/21/2022 11:15 AM WOOD HEEL FLAP TRIMMER): 02/2020 - ECHO - Nl LV size, Mild conc LVH, Castillo dysfxn, EF 56 %; severe LAE; Mild aortic stenosis; Mod pulm HTN; Moderate to severe TR; Small pericardial effusion. Furosemide 40 mg every OTHER day Stable on current Assessment & Plan (04/12/2021 9:26 PM WOOD HEEL FLAP TRIMMER): 02/2020 - ECHO - Nl LV size, Mild conc LVH, Castillo dysfxn, EF 56 %; severe LAE; Mild aortic stenosis; Mod pulm HTN; Moderate to severe TR; Small pericardial effusion. Furosemide 40 mg every OTHER day Decreased from 40 mg daily 06/23/2020 Stable on current Assessment & Plan (12/08/2020 4:25 PM CDT): 02/2020 - ECHO - Nl LV size, Mild conc LVH, Castillo dysfxn, EF 56 %; severe LAE; Mild aortic stenosis; Mod pulm HTN; Moderate to severe TR; Small pericardial effusion. Furosemide 40 mg every OTHER day Decreased from 40 mg daily 06/23/2020 Stable on current Assessment & Plan (08/18/2020 6:52 AM CDT): 02/2020 - ECHO - Nl LV size, Mild conc LVH, Castillo dysfxn, EF 56 %; severe LAE; Mild aortic stenosis; Mod pulm HTN; Moderate to severe TR; Small pericardial effusion. Furosemide 40 mg every OTHER day Decreased from 40 mg daily 06/23/2020 Assessment & Plan (06/22/2020 4:07 PM CDT): 02/2020 - ECHO - Nl LV size, Mild conc LVH, Castillo dysfxn, EF 56 %; severe LAE; Mild aortic stenosis; Mod pulm HTN; Moderate to severe TR; Small pericardial effusion. Furosemide 40 mg daily Cont current Pulmonary hypertension 06/22/2020 Assessment & Plan (04/19/2023 11:42 AM WOOD HEEL FLAP TRIMMER): Finding on ECHO Feb 2020 Patient has declined repeat sleep study Cont diuresis Assessment & Plan (04/12/2021 9:28 PM WOOD HEEL FLAP TRIMMER): Finding on ECHO Feb 2020 Patient has declined repeat sleep study Cont diuresis Assessment & Plan (06/22/2020 4:07 PM CDT): Finding on ECHO Feb 2020 Patient has declined repeat sleep study Cont diuresis Prediabetes 06/22/2020 Assessment & Plan (08/21/2023 1:24 PM CDT): 05/2020 - HgbA1c 6.3 11/2020 - HgbA1c 5.4 08/2022 - HgbA1c 6.1 03/2023 - HgbA1c 6.8 Today - HgbA1c 6.7 Technically DMT2 at this point rather than prediabetes with two HgbA1c levels > 6.5. A1c goal < 7.5. blood sugar at goal. Minimal risk of progression to uncontrolled DMT2 given age. Recommend continue diet control and monitoring Assessment & Plan (04/19/2023 11:43 AM WOOD HEEL FLAP TRIMMER): 05/2020 - HgbA1c 6.3 11/2020 - HgbA1c 5.4 08/2022 - HgbA1c 6.1 Diet control Assessment & Plan (09/18/2022 7:52 PM CDT): 05/2020 - HgbA1c 6.3 11/2020 - HgbA1c 5.4 09/18/2022 - HgbA1c 6.1 Diet control Assessment & Plan (04/12/2021 9:27 PM WOOD HEEL FLAP TRIMMER): 05/2020 - HgbA1c 6.3 11/2020 - HgbA1c 5.4 Diet control Assessment & Plan (12/08/2020 4:26 PM CDT): 05/2020 - HgbA1c 6.3 Diet control Assessment & Plan (08/18/2020 6:48 AM CDT): 05/2020 - HgbA1c 6.3 Diet control Assessment & Plan (06/22/2020 4:06 PM CDT): Today HgbA1c 6.3 Discussed with patient Recommend monitoring Generalized anxiety disorder 06/22/2020 Assessment & Plan (08/21/2023 5:00 PM CDT): Hydroxyzine 10 mg Q8h PRN Started 05/2020 Depressive symptoms worse since her September 2022. escitalopram 10 mg daily started last office visit (Mar 2023) Mood improved today Assessment & Plan (04/19/2023 12:39 PM WOOD HEEL FLAP TRIMMER): Hydroxyzine 10 mg Q8h PRN Started 05/2020 Depressive symptoms worse since her September 2022. Family working to move patient to assisted living, which I think will help Recommend escitalopram 10 mg daily Assessment & Plan (09/18/2022 6:40 AM CDT): Hydroxyzine 10 mg Q8h PRN Started 05/2020 Working well Only taking it in the evening because it causes drowsiness Assessment & Plan (04/12/2021 9:28 PM WOOD HEEL FLAP TRIMMER): Hydroxyzine 10 mg Q8h PRN Started 05/2020 Working well Only taking it in the evening because it causes drowsiness Assessment & Plan (08/18/2020 4:56 PM CDT): Hydroxyzine 10 mg Q8h PRN Started 05/2020 Working well Only taking it in the evening because it causes drowsiness Assessment & Plan (06/22/2020 4:11 PM CDT): Start low dose hydroxyzine as needed Atrial fibrillation 03/11/2020 Assessment & Plan (08/21/2023 9:53 AM CDT): Diagnosed 02/2020 Eliquis 5 mg BID Metoprolol 50 mg BID Patient does not want to follow-up with cardiology to discuss management options Comfortable with rate control and anticoagulation Assessment & Plan (04/19/2023 11:40 AM WOOD HEEL FLAP TRIMMER): Diagnosed 02/2020 Eliquis 5 mg BID Metoprolol 50 mg BID Patient does not want to follow-up with cardiology to discuss management options Comfortable with rate control and anticoagulation Assessment & Plan (09/18/2022 6:46 AM CDT): Diagnosed 02/2020 Eliquis 5 mg BID Metoprolol 50 mg BID Patient does not want to follow-up with cardiology to discuss management options Comfortable with rate control and anticoagulation Assessment & Plan (03/21/2022 11:11 AM WOOD HEEL FLAP TRIMMER): Diagnosed 02/2020 Eliquis 5 mg BID Metoprolol 50 mg BID Patient does not want to follow-up with cardiology to discuss management options Comfortable with rate control and anticoagulation Assessment & Plan (04/12/2021 9:25 PM WOOD HEEL FLAP TRIMMER): Diagnosed 02/2020 Eliquis 5 mg BID Metoprolol 50 mg BID Patient does not want to follow-up with cardiology to discuss management options Comfortable with rate control and anticoagulation Assessment & Plan (12/07/2020 2:40 PM CDT): Diagnosed 02/2020 Eliquis 5 mg BID Metoprolol 50 mg BID Patient does not want to follow-up with cardiology to discuss management options Comfortable with rate control and anticoagulation Assessment & Plan (08/18/2020 4:55 PM CDT): Diagnosed 02/2020 Eliquis 5 mg BID Metoprolol 50 mg BID Patient does not want to follow-up with cardiology to discuss management options Comfortable with rate control and anticoagulation Assessment & Plan (06/22/2020 4:04 PM CDT): Diagnosed 02/2020 Eliquis 5 mg BID Metoprolol 50 mg BID Patient does not want to follow-up with cardiology to discuss management options Comfortable with rate control and anticoagulation Subclinical hypothyroidism 12/03/2019 Assessment & Plan (08/21/2023 9:54 AM CDT): 01/2019 - TSH 6.66 (H); fT4 1.24 (N) 02/2020 - TSH 4.42 (H); fT4 1.29 (N) 05/2020 - TSH 3.63 (N) 11/2020 - TSH 4.81 (H); fT4 1.23 (N) 02/2022 - TSH 4.15 (N) 08/2022 - TSH 4.30 (H); fT4 1.27 (N) 04/19/2023 - TSH 6.04 (H); fT4 1.21 (N) stable Assessment & Plan (04/19/2023 11:43 AM WOOD HEEL FLAP TRIMMER): 01/2019 - TSH 6.66 (H); fT4 1.24 (N) 02/2020 TSH 4.42 (H); fT4 1.29 (N) 05/2020 - TSH 3.63 (N) 11/2020 TSH 4.81 (H); fT4 1.23 (N) 02/2022 TSH 4.15 (N) 08/2022 TSH 4.30 (H); fT4 1.27 (N) stable Assessment & Plan (09/18/2022 7:52 PM CDT): 01/2019 - TSH 6.66 (H); fT4 1.24 (N) 02/2020 TSH 4.42 (H); fT4 1.29 (N) 05/2020 TSH 3.63 (N) 11/2020 TSH 4.81 (H); fT4 1.23 (N) 02/2022 TSH 4.15 (N) 09/18/2022 TSH 4.30 (H); fT4 1.27 (N) stable Assessment & Plan (04/12/2021 9:27 PM WOOD HEEL FLAP TRIMMER): 01/2019 - TSH 6.66 (H); fT4 1.24 (N) 02/2020 TSH 4.42 (H); fT4 1.29 (N) 05/2020 TSH 3.63 (N) 11/2020 TSH 4.81 (H); fT4 1.23 (N) Assessment & Plan (12/07/2020 2:41 PM CDT): 01/2019 - TSH 6.66 (H); fT4 1.24 (N) 02/2020 TSH 4.42 (H); fT4 1.29 (N) 05/2020 TSH 3.63 (N) Assessment & Plan (08/18/2020 6:48 AM CDT): 01/2019 - TSH 6.66 (H); fT4 1.24 (N) 02/2020 - TSH 4.42 (H); fT4 1.29 (N) 05/2020 - TSH 3.63 (N) Assessment & Plan (06/22/2020 2:47 PM CDT): 02/2020 - TSH 4.42 (H); fT4 1.29 (N) Assessment & Plan (12/03/2019 4:00 PM CDT): 01/2019 TSH 6.66; fT4 1.24 Microalbuminuria 12/03/2019 Assessment & Plan (08/18/2020 6:50 AM CDT): 03/26/2020 - eGFR 83 05/2020 - Cr 1.40, eGFR 36 Much lower than in the past Oxygen desaturation during REM sleep 02/20/2019 Assessment & Plan (08/21/2023 1:26 PM CDT): Reviewed sleep study results from 2013 with patient. She says that she sleeps well - in fact, she sleeps all day and will fall asleep at the drop of a hat. I suspect that she does sleep all day - in the recliner in her living room. But I bet none of that sleep is very good quality She declines repeat sleep study. Discussed again Mar 2023 Assessment & Plan (04/19/2023 11:59 AM WOOD HEEL FLAP TRIMMER): Reviewed sleep study results from 2013 with patient. She says that she sleeps well - in fact, she sleeps all day and will fall asleep at the drop of a hat. I suspect that she does sleep all day - in the recliner in her living room. But I bet none of that sleep is very good quality She declines repeat sleep study. Discussed again today Assessment & Plan (06/22/2020 4:10 PM CDT): Reviewed sleep study results from 2013 with patient. She says that she sleeps well - in fact, she sleeps all day and will fall asleep at the drop of a hat. I suspect that she does sleep all day - in the recliner in her living room. But I bet none of that sleep is very good quality Discussed repeating the sleep study at this point, but she declines Assessment & Plan (12/03/2019 4:09 PM CDT): Reviewed sleep study results from 2013 with patient. She says that she sleeps well - in fact, she sleeps all day and will fall asleep at the drop of a hat. I suspect that she does sleep all day - in the recliner in her living room. But I bet none of that sleep is very good quality Discussed repeating the sleep study at this point, but she declines Assessment & Plan (02/20/2019 12:57 PM WOOD HEEL FLAP TRIMMER): Reviewed sleep study results from 2013 with patient. She says that she sleeps well - in fact, she sleeps all day and will fall asleep at the drop of a hat. I suspect that she does sleep all day - in the recliner in her living room. But I bet none of that sleep is very good quality Discussed repeating the sleep study at this point, but she declines I did review sleep hygiene - less than 2 hours of screen time daily. No screen time within 1 hour of bed. Never sleep with the TV on Lymphedema due to venous insufficiency 9 Assessment & Plan (08/21/2023 5:03 PM CDT): BLE Improved with elevation, bumetanide 2 mg BID Cont current Assessment & Plan (08/18/2020 4:56 PM CDT): I think this is causing her tingling Encouraged elevating legs Assessment & Plan (06/22/2020 4:07 PM CDT): 02/2020 - BLE - negative for DVT No s/s cellulitis today Stable on furosemide Assessment & Plan (12/03/2019 5:00 PM CDT): Worsening with signs of cellulitis Possibly because she has been without her losartan-HCTZ 100-25 Apparently [facility] was out of this medication, and I was never notified. I have refilled to a local pharmacy today Abx, increase lasix x 1 week ER precautions Labs today Assessment & Plan (02/20/2019 12:58 PM WOOD HEEL FLAP TRIMMER): Has compression stockings at home, but they are uncomfortable and hard to put on. Does elevate her legs thru the day No overlying skin changes. No skin breakdown. Aortic atherosclerosis 12/14/2017 Assessment & Plan (04/19/2023 11:41 AM WOOD HEEL FLAP TRIMMER): Incidental finding on CXR Asymptomatic. Continue HTN control Eliquis stable Assessment & Plan (09/18/2022 6:40 AM CDT): Incidental finding on CXR Asymptomatic. Continue HTN control ASA Assessment & Plan (04/12/2021 9:25 PM WOOD HEEL FLAP TRIMMER): Incidental finding on CXR Asymptomatic. Continue HTN control ASA Assessment & Plan (12/08/2020 4:25 PM CDT): Incidental finding on CXR Asymptomatic. Continue HTN control ASA Assessment & Plan (06/22/2020 4:04 PM CDT): Incidental finding on CXR Asymptomatic. Continue HTN control ASA Assessment & Plan (12/03/2019 4:58 PM CDT): Incidental finding on CXR Asymptomatic. Continue HTN control ASA Assessment & Plan (02/20/2019 12:49 PM WOOD HEEL FLAP TRIMMER): Incidental finding on CXR Asymptomatic. Continue HTN control ASA Assessment & Plan (12/14/2017 10:51 AM CDT): Incidental finding on CXR Asymptomatic. Continue HTN control ASA Medicare annual wellness visit, subsequent 12/03 Assessment & Plan (04/19/2023 11:45 AM WOOD HEEL FLAP TRIMMER): 09/18/2022 - Cr 1.00, eGFR 57 HgbA1c 6.1 25 (OH) Vit D 36 TSH 4.30 (H); fT4 1.27 (N) H/H 14.0/45.8 Urine microalb negative Kidney Failure Risk Score 22 Points 5-year risk kidney failure < 5.0% Assessment & Plan (06/22/2020 4:08 PM CDT): Check Vit D and iron levels today May be able to discontinue supplemental Vit D and supplemental iron Assessment & Plan (02/20/2019 12:57 PM WOOD HEEL FLAP TRIMMER): Patient stable in all ADLs and IADLs. Ambulatory ability is slowly declining due to deconditioning primarily. no ER visits or hospital stays. Assessment & Plan (12/03/2017 9:35 AM CDT): Patient independant in all ADLs and IADLs. no significant decline in overall physical or mental health over last 12 months. no ER visits or hospital stays. recommend at least 10 minutes of moderate intensity exercise most days of the week with a goal of 150 minutes weekly. History of arthroplasty of right knee 08/22/2016 Mild aortic stenosis 08/22/2016 Overview (08/22/2016): ECHO 04/2015 - normal LV sys fxn and size; EF 67%; mild aortic stenosis Assessment & Plan (02/20/2019 12:50 PM WOOD HEEL FLAP TRIMMER): Annual labs today Due to increase in fatigue, will plan to repeat ECHO for monitoring. Assessment & Plan (12/03/2017 9:35 AM CDT): ECHO 2016 Plan for repeat 2018 Osteopenia 02/22/2016 Assessment & Plan (06/22/2020 4:09 PM CDT): 01/2019 - 25(OH) Vit D 48 Venous stasis 02/22/2016 Assessment & Plan (12/03/2017 12:22 PM CDT): Uses pneumatic compression stockings daily at home. Really help manage the peripheral edema. Cataract 07/12/2013 Morbid obesity with BMI of 40.0-44.9, adult 06/26 Assessment & Plan (08/21/2023 1:20 PM CDT): Wt Readings from Last 3 Encounters: 08/21/23 107 kg (236 lb) 04/19/23 112.5 kg (248 lb) 04/09/23 101.6 kg (224 lb) 03/27/23 - 250 lbs 09/18/22 - 222 lbs 12 lbs weight loss since last office visit discussed healthy diet, exercise and adequate sleep Body mass index is 40.49 kg/m . Assessment & Plan (05/07/2023 7:52 PM CDT): Wt Readings from Last 6 Encounters: 04/19/23 112.5 kg (248 lb) 04/09/23 101.6 kg (224 lb) 03/27/23 113.4 kg (250 lb) 09/18/22 100.7 kg (222 lb) 03/20/22 98.4 kg (217 lb) 04/13/21 91.2 kg (201 lb) discussed healthy diet, exercise and adequate sleep Body mass index is 42.55 kg/m . Comorbidity - HTN, CHF Assessment & Plan (09/18/2022 7:52 PM CDT): Wt Readings from Last 3 Encounters: 09/18/22 100.7 kg (222 lb) 03/20/22 98.4 kg (217 lb) 04/13/21 91.2 kg (201 lb) discussed healthy diet, exercise and adequate sleep Body mass index is 38.09 kg/m . Comorbidity - HTN, CHF Assessment & Plan (04/13/2021 7:41 PM WOOD HEEL FLAP TRIMMER): Wt Readings from Last 3 Encounters: 04/13/21 91.2 kg (201 lb) 12/08/20 83 kg (183 lb) 08/18/20 90.7 kg (200 lb) discussed healthy diet, exercise and adequate sleep Body mass index is 34.48 kg/m . Assessment & Plan (12/08/2020 4:26 PM CDT): Wt Readings from Last 3 Encounters: 12/08/20 83 kg (183 lb) 08/18/20 90.7 kg (200 lb) 06/22/20 89.4 kg (197 lb) discussed healthy diet, exercise and adequate sleep Body mass index is 31.4 kg/m . Assessment & Plan (08/18/2020 4:56 PM CDT): Wt Readings from Last 3 Encounters: 08/18/20 90.7 kg (200 lb) 06/22/20 89.4 kg (197 lb) 03/24/20 120.5 kg (265 lb 10.5 oz) discussed healthy diet, exercise and adequate sleep Body mass index is 34.31 kg/m . Assessment & Plan (06/22/2020 4:07 PM CDT): discussed healthy diet, exercise and adequate sleep Body mass index is 33.8 kg/m . Assessment & Plan (02/20/2019 11:52 AM WOOD HEEL FLAP TRIMMER): Obesity is unchanged. Discussed the patient's BMI. The BMI is above average; BMI management plan is completed. General weight loss/lifestyle modification strategies discussed (elicit support from others; identify saboteurs; non-food rewards, etc). Body mass index is 41.18 kg/m . Assessment & Plan (12/14/2017 10:51 AM CDT): Obesity is unchanged. Discussed the patient's BMI. The BMI is above average; BMI management plan is completed. General weight loss/lifestyle modification strategies discussed (elicit support from others; identify saboteurs; non-food rewards, etc). Body mass index is 43.26 kg/m . Assessment & Plan (12/03/2017 9:32 AM CDT): Obesity is unchanged. Discussed the patient's BMI. The BMI is above average; BMI management plan is completed. General weight loss/lifestyle modification strategies discussed (elicit support from others; identify saboteurs; non-food rewards, etc). Body mass index is 42.4 kg/m . Assessment & Plan (08/22/2016 10:51 AM CDT): Obesity is unchanged. Discussed the patient's BMI. The BMI is above average; BMI management plan is completed. General weight loss/lifestyle modification strategies discussed (elicit support from others; identify saboteurs; non-food rewards, etc). Colon, diverticulosis 07/12/2013 Arthritis of knee 07/12/2013 Assessment & Plan (08/21/2023 1:25 PM CDT): History of right knee replacement. X-rays 2011 - right knee joint prosthesis intact, small effusion; left knee with advanced degenerative changes topical Voltaren gel Tramadol 50 mg Q 8 hours PRN Assessment & Plan (04/19/2023 11:44 AM WOOD HEEL FLAP TRIMMER): History of right knee replacement. X-rays 2011 - right knee joint prosthesis intact, small effusion; left knee with advanced degenerative changes topical Voltaren gel Tramadol 50 mg Q 8 hours PRN Assessment & Plan (09/18/2022 6:49 AM CDT): History of right knee replacement. X-rays 2011 - right knee joint prosthesis intact, small effusion; left knee with advanced degenerative changes Will try topical Voltaren gel Tramadol for PRN use Assessment & Plan (04/12/2021 9:29 PM WOOD HEEL FLAP TRIMMER): History of right knee replacement. X-rays 2011 - right knee joint prosthesis intact, small effusion; left knee with advanced degenerative changes Ambulation severely limited due to weakness, deconditioning, morbid obesity, and OA Recommend against oral NSAIDs due to renal fxn Will try topical Voltaren gel Tramadol for PRN use Discussed Tramadol can cause drowsiness and increase the risk of falls Assessment & Plan (12/07/2020 2:43 PM CDT): History of right knee replacement. X-rays 2011 - right knee joint prosthesis intact, small effusion; left knee with advanced degenerative changes Ambulation severely limited due to weakness, deconditioning, morbid obesity, and OA Recommend against oral NSAIDs due to renal fxn Will try topical Voltaren gel Tramadol for PRN use Discussed Tramadol can cause drowsiness and increase the risk of falls Assessment & Plan (08/18/2020 4:57 PM CDT): History of right knee replacement. X-rays 2012 - right knee joint prosthesis intact, small effusion; left knee with advanced degenerative changes Ambulation severely limited due to weakness, deconditioning, morbid obesity, and OA Recommend against oral NSAIDs due to renal fxn Will try topical Voltaren gel Tramadol for PRN use Discussed Tramadol can cause drowsiness and increase the risk of falls Assessment & Plan (02/20/2019 12:55 PM WOOD HEEL FLAP TRIMMER): History of right knee replacement. X-rays 2012 - right knee joint prosthesis intact, small effusion; left knee with advanced degenerative changes Ambulation severely limited due to weakness, deconditioning, morbid obesity, and OA Takes OTC Naproxen ~ 2-3 times a week for knee pain Will order home health PT for strengthening Assessment & Plan (12/03/2017 12:22 PM CDT): History of right knee replacement Left knee x-ray 06/2011 - 1. ADVANCED DEGENERATIVE CHANGES WITH PARTICULAR INVOLVEMENT OF THE MEDIAL AND PATELLOFEMORAL COMPARTMENTS. 2. JOINT EFFUSION Discussed options including heat/Ice Home exercises - handout given. PT ([facility] PT on [address] is ~ 4 miles from patient's home. Would be the closest option) Patient declined PT and/or steroid injection Hypertensive heart and kidne y disease with chronic diastolic congestive heart failure and stage 3a chronic kidney disease 02/26/1983 Assessment & Plan (08/21/2023 1:19 PM CDT): Bumetanide 2 mg BID Nifedipine 60 mg daily Losartan 100 mg daily Metoprolol 50 mg BID Furosemide increased from 40 mg every other day to 40 mg daily 2023. Furosemide stopped and bumetanide started last office visit (Mar 2023) BP Readings from Last 3 Encounters: 08/21/23 120/76 05/16/23 138/74 05/08/23 131/88 BP well controlled Assessment & Plan (04/19/2023 12:37 PM WOOD HEEL FLAP TRIMMER): Furosemide 40 mg daily Nifedipine 60 mg daily Losartan 100 mg daily Metoprolol 50 mg BID Furosemide increased from 40 mg every other day to 40 mg daily 2023 BP controlled Will change furosemide to bumetanide 2 mg BID to try to help with LE edema Assessment & Plan (09/18/2022 6:47 AM CDT): Furosemide 40 mg every other day Nifedipine 60 mg daily Losartan 100 mg daily Metoprolol 50 mg BID Spironolactone 25 mg daily Last prescribed 04/2021 - 3 month supply, 3 refills. Last refilled Dec 2021 according to [facility] refill history Assessment & Plan (03/22/2022 7:11 AM WOOD HEEL FLAP TRIMMER): 02/2022 - Cr 1.06, eGFR 54 Assessment & Plan (04/12/2021 9:26 PM WOOD HEEL FLAP TRIMMER): 02/2020 - total 92; Trig 72; HDL 25; LDL 53 05/2020 - eGFR 36 Losartan 100 mg daily Spironolactone 25 mg daily HCTZ 25 mg daily Nifedipine ER 60 mg daily Metoprolol 50 mg BID Clonidine stopped during Feb 2020 hospital stay BP controlled Labs today Assessment & Plan (12/07/2020 2:40 PM CDT): 02/2020 - total 92; Trig 72; HDL 25; LDL 53 05/2020 - eGFR 36 Losartan 100 mg daily Spironolactone 25 mg daily HCTZ 25 mg daily Nifedipine ER 60 mg daily Metoprolol 50 mg BID Clonidine stopped during Feb 2020 hospital stay BP controlled Labs today Assessment & Plan (08/18/2020 4:55 PM CDT): 02/2020 - total 92; Trig 72; HDL 25; LDL 53 03/26/2020 - eGFR 83 Losartan 100 mg daily Spironolactone 25 mg daily HCTZ 25 mg daily Nifedipine ER 60 mg daily Metoprolol 50 mg BID Clonidine stopped during Feb 2020 hospital stay BP controlled Labs today Assessment & Plan (06/22/2020 2:53 PM CDT): 02/2020 - total 92; Trig 72; HDL 25; LDL 53 03/26/2020 - eGFR 83 Losartan 100 mg daily Spironolactone 25 mg daily Clonidine 0.2 mg BID HCTZ 25 mg daily Nifedipine ER 60 mg daily Metoprolol 50 mg BID Assessment & Plan (02/20/2019 12:50 PM WOOD HEEL FLAP TRIMMER): Hypertension is controlled. Continue current treatment regimen. Weight loss. Regular aerobic exercise. Continue current medications. Blood pressure will be reassessed at the next regular appointment. Assessment & Plan (12/03/2017 9:38 AM CDT): Hypertension is controlled. Continue current treatment regimen. Weight loss. Regular aerobic exercise. Continue current medications. Blood pressure will be reassessed at the next regular appointment. Primary hypertension Assessment & Plan (02/06/2025 2:27 PM WOOD HEEL FLAP TRIMMER): Stable continue losartan Physical deconditioning Assessment & Plan (09/18/2022 5:16 PM CDT): Home Health order placed today, but Home Health will not come until Bed Bugs are treated Will place referral to ACO team to see if they may be of assistance. Monilial intertrigo Resolved Problems Problem Noted Date Diagnosed Date Resolved Date Infestation by annabel tejeda 09/18/2022 04/19/2023 Assessment & Plan (09/18/2022 1:09 PM CDT): She has been in touch with an title i math tutor [employer]. They have instructed that she needs to get everything off the floor in all rooms before they can come to spray. She has gotten everything off of the floor in all rooms except for her 's bedroom/office. There are a lot of boxes in there, and she is having difficulty arranging that room. Referral to Manager Reliability today to see if assistance may be available. Serum potassium elevated 03/21/2022 Asymptomatic menopausal state 03/20/2022 09/18/2022 Diuretic-induced hypokalemia 06/22/2020 09/18/2022 Assessment & Plan (04/12/2021 9:29 PM WOOD HEEL FLAP TRIMMER): Potassium chloride ER 10 mEq daily Assessment & Plan (12/07/2020 2:42 PM CDT): Potassium chloride ER 10 mEq daily Assessment & Plan (08/18/2020 6:52 AM CDT): Potassium chloride ER 10 mEq daily Assessment & Plan (06/22/2020 3:00 PM CDT): Potassium 10 mEq daily Urinary retention 06/22/2020 04/12/2021 Assessment & Plan (08/18/2020 4:21 PM CDT): Large residual urine volumes and incomplete emptying of bladder during Feb 2020 hospital stay Urology recommended to stop oxybutynin It was restarted at hospital discharge Stopped at office follow-up 05/2020 Started DDAVP 0.1 - 0.2 mg QHS No idea if she is taking this or not. No idea if it has helped or not. Assessment & Plan (06/22/2020 4:07 PM CDT): Large residual urine volumes and incomplete emptying of bladder during Feb hospital stay Urology recommended to stop oxybutynin It was restarted at hospital discharge Recommend stop today Will try change to desmopressin to help with frequent nocturnal urination Cellulitis of lower extremity 03/11/2020 06/22/2020 Acute CHF 03/11/2020 06/22/2020 At risk for falls 02/20/2019 02/20/2019 Urinary frequency 02/20/2019 06/22/2020 Assessment & Plan (02/20/2019 12:55 PM WOOD HEEL FLAP TRIMMER): Likely OAB Discussed taking lasix early in the AM No fluids within 1 hour of bed Trial of detrol Cellulitis 12/14/2017 02/20/2019 Assessment & Plan (12/14/2017 10:52 AM CDT): Warm compress Clean area daily with bar soap - has a walk iin shower with removable shower head to facilitate Warm compress Oral and topical Abx Call if persistent or worsening Family history of colon cancer 07/12/2013 11/29/2017 Overview (06/01/2016): FHx: Colon Cancer Hypothyroidism 06/22/2020 Encounters Date Type Department Care Team Description 02/13/2025 Telephone [facility] Vascular and Vein Surgery [address] [place] [address] Denisse Longoria RN 01/28/2025 10:45 AM WOOD HEEL FLAP TRIMMER Office Visit [facility] Vascular at [address] [place] [address] Ulises Ndiaye MD PVD (peripheral vascular disease) (Primary Dx); Primary hypertension 01/28/2025 Orders Only [facility] Vascular and Vein Surgery [address] [place] [address] [address] [place] [address] Ulises Ndiaye MD 01/28/2025 Orders Only [facility] Vascular and Vein Surgery [address] [place] [address] [address] [place] [address] Ulises Ndiaye MD Atherosclerosis of [place] artery of both lower extremities with intermittent claudication (Primary Dx) from Last 3 Months Immunizations Immunization Administration Dates Next Due Influenza, Quadrivalent, Hig h Dose, Preservative Free, Intrr 12/08/2020,12/03/2019 Influenza, Quadrivalent, Spl it, Preservative Free, Intramuscular 2023,03/20/2022,11/20/2018,12/03,11/28/2016,05/12/2015 Influenza, Split 11/21/2012,12/14/2011, 5 Influenza, Trivalent, High D ose, Split, Preservative Free, Intramuscular 12/01/2015,12/09/2014,11/18/2013 Influenza, Trivalent, IM (MDV) 12/28/2010,2008 Pfizer SARS-CoV-2 Monovalent Vaccination (12+ Yrs) PURPLE 11/12/2020,10/22/2020 Pneumococcal Conjugate PCV 13 10/16/2014 Pneumococcal Polysaccharide PPV23 07/13/2011 Tdap 08/08/2012 ZOSTER LIVE 03/06/2012 Surgical History Surgery Date Site/Laterality Comments HYSTERECTOMY 02/26/1978 - 02/25/1979 fibroids KNEE ARTHROPLASTY 02/26/2003 - 02/26/2004 Right COLONOSCOPY 05/30/2012 Medical History Medical History Date Comments Osteoarthritis Hypothyroidism Hypertension Venous stasis Atrial fibrillation (HCC) 02/2020 Prediabetes 06/22/2020 Family History Medical History Relation Name Comments Pancreatic cancer Brother 2 Coronary artery disease Brother 3 Diabetes type II Brother 4 Lung cancer Father Colon cancer Mother Thyroid cancer Sister 2 Heart attack Son Breast cancer Neg Hx Ovarian cancer Neg Hx Relation Name Status Comments Brother 1 Alive Brother 2 Brother 3 Brother 4 Father (Age 58) Mother (Age 68) Other Alive Sister 1 (Age 58) Sister 2 Son Social History Tobacco Use Types Packs/Day Years Used Date Smoking Tobacco: Never Smokeless Tobacco: Never Tobacco Cessation:Counseling Given: Not Answered Alcohol Use Standard Drinks/Week Comments No 0 [...] materials from doctor or pharmacy Never 05/16/2023 [facility] Utilities Answer Date Recorded In the past 12 months has e [employer] gas, oil, or water [employer] threatened to shut off services in your [...] and Family Not on file 09/20/2022 Attends Muslim Services Not on file 09/20 Active Member [...] place to sleep or slept in a detention (including now)? 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 file Not on file Not on fi le Last Filed Vital Signs Vital Sign Reading Time Taken Comments Blood Pressure 133/83 01/28/2025 10:48 AM WOOD HEEL FLAP TRIMMER Pulse 89 01/28/2025 10:48 AM WOOD HEEL FLAP TRIMMER Temperature 37.1 C (98.8 F) 05/16/2023 9:04 AM CDT Respiratory Rate 17 08/21/2023 1:15 PM CDT Oxygen Saturation 97% 01/28/2025 10:48 AM WOOD HEEL FLAP TRIMMER Inhaled Oxygen Concentration - - Weight 104.8 kg (231 lb) 01/28/2025 10:48 AM WOOD HEEL FLAP TRIMMER Height 162.6 cm (5' 4) 01/28/2025 10:48 AM WOOD HEEL FLAP TRIMMER Body Mass Index 39.65 01/28/2025 10:48 AM WOOD HEEL FLAP TRIMMER Plan of Treatment Health Maintenance Due Date Last Done Comments Dilated Eye Exam 1945 Osteoporosis Screening-Bone Density Scan 10/21/2011 10/20/2009 Zoster Vaccine (2 of 3) 05/01/2012 03/06/2012 Hemoglobin A1C 02/20/2024 08/21/2023, 03/30, 09/18/2022, Additional history exists Depression Screening 04/19/2024 04/19/2023, 2023, 03/20/2022, Additional history exists Lipid Panel 04/19/2024 04/19/2023, 02/27, 12/08/2020, Additional history exists Well Visit 65+ 04/19/2024 04/19/2023, 02/27, 03/20/2022, Additional history exists Albumin Creatinine Ratio, Urine 08/20/2024 08/21/2023, 04/19/2023, 09/18/2022, Additional history exists Fall Risk Assessment 08/20/2024 08/21/2023, 04/19/2023, 09/18/2022, Additional history exists Foot Exam 08/20/2024 08/21/2023, 12/08/2020 eGFR 08/20/2024 08/21/2023, 03/30, 09/18/2022, Additional history exists Covid-19 Vaccine (3 - 2024-2 6 season) 2024 11/12/2020, 10/22/2020 Influenza Vaccine (#1) 2024 , 2023, 03/20/2022, Additional history exists DTaP/Tdap/Td Vaccine Discontinued 08/08/2012 Pneumococcal vaccine 65+ Completed 10/16/2014, 06/26 Hepatitis B Screening Completed 08/21/2023 Procedures Procedure Name Priority Date/Time Associated Diagnosis Comments EGFR Routine 08/21/2023 2:39 PM CDT Chronic renal failure, stage 3a (HCC) ALBUMIN CREATININE RATIO, URINE Routine 08/21/2023 2:39 PM CDT Chronic renal failure, stage 3a (HCC) POCT HEMOGLOBIN A1C Routine 08/21/2023 1 :25 PM CDT Type 2 diabetes mellitus with stage 3a chronic kidney disease, without long-term current use of insulin (HCC) LIPID PANEL Routine 04/19/2023 12:29 PM CST Medicare annual wellness visit, subsequent Screening, heart disease, ischemic DEXA SCAN Routine 10/20/2009 from Last 3 Months or Most Recently Relevant to Health Maintenance Results * (ABNORMAL) eGFR (08/21/2023 2:39 PM CDT) [facility] Signature eGFR 58(L) >=60 mL/min/1. 73 m2 Comment: Interpretive Data Reference Interval Normal >/= 90 mL/min/1.73m2 Mildly decreased* 60 - 89 mL/min/1.73m2 Mildly to moderately decreased 45 - 59 mL/min/1.73m2 Moderately to severely decreased 30 - 44 mL/min/1.73m2 Severely decreased 15 - 29 mL/min/1.73m2 Kidney Failure < 15 mL/min/1.73m2 *Relative to young adult level Estimated glomerular filtration rate is determined by the 2020 CKD-EPI equation recommended by the National Kidney Foundation (A Unifying Approach to GFR Estimation: Recommendations of the NKF-ASK Task Force on Reassessing the Inclusion of Race in Diagnosing Kidney Disease, JASN 2020). The CKD-EPI equation should not be used for patients with unstable renal function and has not been validated in children and those over 70. Current interpretive data was last reviewed 2020. Blood 08/21/2023 2:39 PM CDT 08/21/2023 5:14 PM CDT Sarah Cuadra MD LAB BLOOD ORDERABLES Nahomy l Result Performing Organization Address [facility] Co de Phone Number [facility] [id number] [address] Department [place] [address] * Albumin Creatinine Ratio, Urine (08/21/2023 2:39 PM CDT) Albumin Ur 12.9 mg/L Comment: Interpretive Data No reference range established. Current interpretive data was last revised 2018. Creatinine Ur 118.6 mg/dL [facility] Comment: Interpretive Data No reference range established. Current interpretive data was last revised 2018. Albumin Creatinine Ratio, Ur 11 1 - 29 mg/g [facility] Urine 08/21/2023 2:39 PM CDT 08/21/2023 4:47 PM CDT Sarah Cuadra MD LAB URINE ORDERABLES Nahomy l Result Performing Organization Address [facility] Co de Phone Number [facility] [id number] [address] Department [place] [address] * POCT hemoglobin A1c (08/21/2023 1:25 PM CDT) Hemoglobin A1C, POC 6.7 % Blood spot 08/21/2023 1:25 PM CDT Sarah Cuadra MD POINT OF CARE TEST ORDERA BLES Final Result * (ABNORMAL) Lipid panel (04/19/2023 12:29 PM WOOD HEEL FLAP TRIMMER) Cholesterol 118 30 - 199 mg/dL [facility] Comment: Interpretive Data Ages < or = 19 years Acceptable: <170 mg/dL Borderline high: 170-199 mg/dL High: >or= 200 mg/dL Ages > or = 20 years Desirable: <200 mg/dL Borderline high: 200-239 mg/dL High: >or= 240 mg/dL Literature References: 1. Expert Panel on Integrated Guidelines for Cardiovascular Health and Risk Reduction in Children and Adolescents. Pediatrics 2011;128:S213 2. NCEP Expert Panel. Circulation 2004;110:227 Current Interpretive Data was last revised on 2017. Triglycerides 65 <=149 mg/dL [facility] Comment: Interpretive Data Ages < or = 9 years Acceptable: <75 mg/dL Borderline high: 75-99 mg/dL High: >or= 100 mg/dL Ages 10 to 20 years Acceptable: <90 mg/dL Borderline high: 90-129 mg/dL High: >or= 130 mg/dL Ages > or = 20 years Desirable: <150 mg/dL Borderline high: 150-199 mg/dL High: 200-499 mg/dL Very high: >or= 499 mg/dL Literature References: 1. Expert Panel on Integrated Guidelines for Cardiovascular Health and Risk Reduction in Children and Adolescents. Pediatrics 2011;128:S213 2. NCEP Expert Panel. Circulation 2004;110:227 Current Interpretive Data was last revised on 2017. HDL 36(L) >=40 mg/dL [facility] Comment: Interpretive Data Ages < or = 19 years Acceptable: >45 mg/dL Borderline low: 40-45 mg/dL Low: <40 mg/dL Ages > or = 20 years Desirable: >or= 60 mg/dL Low: <40 mg/dL Literature References: 1. Expert Panel on Integrated Guidelines for Cardiovascular Health and Risk Reduction in Children and Adolescents. Pediatrics 2011;128:S213 2. NCEP Expert Panel. Circulation 2004;110:227 Current Interpretive Data was last revised on 2017. LDL, calculated 69 <=129 mg/dL [facility] Comment: Interpretive Data Ages < or = 19 years Acceptable: <110 mg/dL Borderline high: 110-129 mg/dL High: >or= 130 mg/dL Ages > or = 20 years Optimal: <100 mg/dL Near optimal: 100-129 mg/dL Borderline high: 130-159 mg/dL High: >160 mg/dL Literature References: 1. Expert Panel on Integrated Guidelines for Cardiovascular Health and Risk Reduction in Children and Adolescents. Pediatrics 2011;128:S213 2. NCEP Expert Panel. Circulation 2004;110:227 Current Interpretive Data was last revised on 2017. Non-HDL Cholesterol 82 mg/dL [facility] Comment: Interpretive Data Ages < or = 19 years Acceptable: <120 mg/dL Borderline high: 120-144 mg/dL High: >145 mg/dL Ages > or = 20 years When triglycerides are >200 mg/dL, Non-HDL cholesterol is a secondary target of therapy with treatment goals that are 30 mg/dL greater than the LDL cholesterol target. Literature References: 1. Expert Panel on Integrated Guidelines for Cardiovascular Health and Risk Reduction in Children and Adolescents. Pediatrics 2011;128:S213 2. NCEP Expert Panel. Circulation 2004;110:227 Current Interpretive Data was last revised on 2017. Chol/HDL ratio 3 [facility] Blood 04/19/2023 12:2 9 PM WOOD HEEL FLAP TRIMMER 04/19/2023 5:22 PM WOOD HEEL FLAP TRIMMER Sarah Cuadra MD LAB BLOOD ORDERABLES Nahomy l Result [facility] [id number] [address] Department [place] [address] * DEXA SCAN (10/20/2009) [facility] DEXA Scan Abnormal us Historical Provider HEALTH MAINTENANCE Final Result from Last 3 Months or Most Recently Relevant to Health Maintenance Insurance MEDICARE FOR LIFE [employer] [address]: [address] [place] [id number] MEDICARE MEDICARE FOR LIFE MEDICARE Advance Directives For more information, please contact: [phone] * Full Code (Latest Code Status on File) Date Activated Date Inactivated Comments 03/11/2020 6:43 PM 03/26/2020 8:26 PM Care Teams Stock Plan Administrator Relationship Specialty Start Date End Date Som Rivers DO [address] [place] [id number] PCP - General Internal Medicine 12/18/24 Jordin Durán MD Consulting Physician Cardiology 03/25/20
[2025-02-13 16:28] LABS: Hematocrit 41.6 % (37.0-47.0); Hemoglobin 13.9 g/dL (12.0-15.0); Immature Granulocyte Percent A 0.6 % (0-0.5); Lymphocytes Absolute Auto 0.93 K/mm3 (0.9-3.2); Mean Corpuscular HGB Conc 33.4 g/dl (32-36); Mean Corpuscular Hemoglobin 28.5 pg (26-34); Mean Corpuscular Volume 85.4 fl (80-100); Nucleated Red Blood Cells Absolute Auto 0.000 K/mm3 (0.0-0.012); Nucleated Red Blood Cells Perc 0.0 % (0.0-0.2); Platelet Count Result 174 k/mm3 (150-375); Red Blood Count 4.87 M/mm3 (4.2-5.4); White Blood Count 6.6 K/mm3 (4.5-10.0)
--- NOTE | 2025-02-13 16:59 | ED.GENADULT ---
HPI - General Adult General Chief complaint: Wound/Laceration Stated complaint: toe wound Time Seen by Provider: 02/13/25 15:06 History of Present Illness HPI narrative: Gaby Carey is an 79-year-old female who presents today with complaints of having of wounds to her right 3rd toe. She is here from a nursing facility and when examined it they wanted to get rechecked out here. She states it has been there for about 6 years that maybe over the past couple weeks has turned slightly purple on the tip. She denies history of DM denies having significant pain but was recommended to have it evaluated here. Denies hx of trauma Related Data Allergies Allergy/AdvReac Type Severity Reaction Status Date / Time No Known Allergies Allergy Verified 02/13/25 14:11 Review of Systems Review of Systems: All systems reviewed & are unremarkable except as noted in HPI and below Exam Narrative: GENERAL: Well-appearing, well-nourished, and in no acute distress. HEAD: Normocephalic, atraumatic. EYES: PERRLA and EOMI. ENT: Nares clear, no rhinorrhea or epistaxis. Mucous membranes moist. Oropharynx without tonsillar hypertrophy exudate or other lesions NECK: Supple. No adenopathy or masses. No carotid bruits or JVD CHEST: Clear to auscultation. No respiratory distress. No wheezes rales or rhonchi HEART: Regular rate and rhythm. No murmur heard. Normal peripheral pulses. ABDOMEN: Soft, nontender, nondistended, normal active bowel sounds. EXTREMITIES: Normal range of motion. No edema. Right 2nd and 3rd toes noted to have purplish a blood blister noted to the tips no cellulitis/ pulses intact/ ROM intact SKIN: Warm, dry, no rash. NEURO: No focal deficits. Alert and oriented x3. PSYCH: Normal mood and affect. Course Vital Signs Vital signs: Vital Signs Temperature 36.4 C 02/13/25 14:08 Pulse Rate 90 02/13/25 14:08 Respiratory Rate 16 02/13/25 14:08 Blood Pressure 129/102 H 02/13/25 14:08 Pulse Oximetry 97 02/13/25 14:08 Oxygen Delivery Room Air 02/13/25 14:08 Temperature 36.4 C 02/13/25 14:08 Pulse Rate 76 02/13/25 20:00 Respiratory Rate 20 02/13/25 20:00 Blood Pressure 149/71 H 02/13/25 20:00 Pulse Oximetry 100 02/13/25 20:00 Oxygen Delivery Room Air 02/13/25 14:08 MDM MDM Narrative Medical decision making narrative: 79-year-old female who presents to have her toes evaluated on the right foot after they noticed the tip of her toe slightly purple on the tip. Patient denies any trauma or injury. She says that it has been like that for about 6 years. Does not appear to be infected, does not appeared to be broken, appears to be maybe a of slight blood blister plan to check an x-ray. However after discussed this with patient she says that she was also told she needed blood work to make sure she is not dehydrated because she has been really thirsty recently will also add on a couple basic labs. X-ray No acute fracture or malalignment. CBC unremarkable CMP NA 127- corrected with bs value of 137-142, bicarb 33, BUN 41, creatinine 1.18, GFR 44, glucose 715, anion gap of 11 After the CMP results I did update patient that she is likely now new onset diabetes and we will add on more labs starting IV starting fluids giving insulin monitoring her and bring her into the hospital for further care and management of her new onset diabetes. Patient is agreeable to this plan and denies a anything further at this time Discussed pt's case with Lilly Mcintosh Hospitalist who accepts pt for admission, will wait for labs to evaluate the need for ICU vs Med surge. UA 3+ glucose Phosphorus 4.3 Magnesium 2.4 Hemoglobin A1c greater than 14 Venous blood gas pH 7.481 Beta hydroxybutyrate 0.[address] Johns who recommends starting the insulin drip and admitting to ICU as she is compensated HHS and will likely turn to DKA if she is not started on the insulin drip she had very little improvement with the insulin iV push and IV fluids. Called Dr. Lozano Customer Support Representative who accepts pt for admission, updated Lilly Mcintosh that pt is now being admitted to ICU not Med surge. 2030 pt re-evaluated and updated about that will be ICU starting Insulin drip, she remains alert and oriented x4, she denies hx of CHF/ denies hx of heart issues, she says she had taken a water pill before for leg swelling. She is sating 100% on RA here at rest. She states she has HTN and takes metoprolol and losartan. Differential Diagnosis Differential Diagnosis: Fracture, osteomyelitis, hematoma, dehydration Lab Data MDM Lab Attestation statement: I personally reviewed the patient's lab results. 02/13/25 16:21 02/13/25 18:30 Labs: Lab Results 02/13/25 02/13/25 02/13/25 Range/Units 16:21 17:13 18:30 WBC 6.6 (4.5-10.0) K/mm3 RBC 4.87 (4.2-5.4) M/mm3 Hgb 13.9 (12.0-15.0) g/dL Hct 41.6 (37.0-47.0) % MCV 85.4 (80-100) fl MCH 28.5 (26-34) pg MCHC 33.4 (32-36) g/dl RDW 13.4 (11.5-14.5) % Plt Count 174 (150-375) k/mm3 MPV 12.3 H (7.4-10.4) fl Immature Gran % (Auto) 0.6 H (0-0.5) % Neut % (Auto) 72.9 (45.5-73.1) % Lymph % (Auto) 14.1 L (18.3-44.2) % [place] % (Auto) 10.9 H (2.6-8.5) % Eos % (Auto) 0.9 (0-4.4) % Baso % (Auto) 0.6 (0.2-1.2) % Lymph # (Auto) 0.93 (0.9-3.2) K/mm3 [place] # (Auto) 0.7 H (0.1-0.6) K/mm3 Eos # (Auto) 0.1 (0-0.3) K/mm3 Baso # (Auto) 0.0 (0.0-0.1) K/mm3 Abs Immat Gran (auto) 0.04 H (0.00-0.031) K/mm3 Absolute Neuts (auto) 4.8 (1.3-6.7) K/mm3 Absolute Nucleated RBC 0.000 (0.0-0.012) K/mm3 Nucleated RBC % 0.0 (0.0-0.2) % Sodium 127 L 127 L (137-145) mmol/L Potassium 4.5 4.4 (3.4-5.0) mmol/L Chloride 83 L 84 L (98-107) mmol/L Carbon Dioxide 33 H 30 (22-30) mmol/L Anion Gap 11 13 H (4-12) mmol/L BUN 41 H 41 H (7-17) mg/dL Creatinine 1.18 H 1.11 H (0.7-1.0) mg/dL Estim Creat Clear Calc 39 42 ml/min Estimated GFR 44 L 47 L (59 - ) Glucose 715 H* 677 H* (65-110) mg/dL POC Capillary Glucose (65-105) mg/dl Hemoglobin A1c > 14.0 H (<5.7) % Calcium 9.1 9.1 (8.4-10.2) mg/dL Phosphorus Cancelled Magnesium Total Bilirubin 1.0 (0.2-1.3) mg/dL AST 29 (14-36) U/L ALT 26 (6-35) U/L Alkaline Phosphatase 126 (38-126) U/L Total Protein 7.7 (6.3-8.2) g/dL Albumin 4.1 (3.5-5.1) g/dL Beta-Hydroxybutyrate/Acetoacetate (0.02-0.27) mmol/L Urine Color (Yellow) Urine Appearance (Clear) Urine pH (5.0-9.0) Ur Specific [place] (1.001-1.035) Urine Protein (Negative) mg/dL Urine Glucose (UA) (Negative) mg/dL Urine Ketones (Negative) mg/dL Ur Blood (Man) (Negative) Urine Nitrate (Negative) Urine Bilirubin (Negative) Urine Urobilinogen (<2.0) mg/dL Leukocyte Esterase Rfl (Negative) ASHLIE/UL 02/13/25 02/13/25 02/13/25 Range/Units 18:30 18:30 18:46 WBC (4.5-10.0) K/mm3 RBC (4.2-5.4) M/mm3 Hgb (12.0-15.0) g/dL Hct (37.0-47.0) % MCV (80-100) fl MCH (26-34) pg MCHC (32-36) g/dl RDW (11.5-14.5) % Plt Count (150-375) k/mm3 MPV (7.4-10.4) fl Immature Gran % (Auto) (0-0.5) % Neut % (Auto) (45.5-73.1) % Lymph % (Auto) (18.3-44.2) % [place] % (Auto) (2.6-8.5) % Eos % (Auto) (0-4.4) % Baso % (Auto) (0.2-1.2) % Lymph # (Auto) (0.9-3.2) K/mm3 [place] # (Auto) (0.1-0.6) K/mm3 Eos # (Auto) (0-0.3) K/mm3 Baso # (Auto) (0.0-0.1) K/mm3 Abs Immat Gran (auto) (0.00-0.031) K/mm3 Absolute Neuts (auto) (1.3-6.7) K/mm3 Absolute Nucleated RBC (0.0-0.012) K/mm3 Nucleated RBC % (0.0-0.2) % Sodium (137-145) mmol/L Potassium (3.4-5.0) mmol/L Chloride (98-107) mmol/L Carbon Dioxide (22-30) mmol/L Anion Gap (4-12) mmol/L BUN (7-17) mg/dL Creatinine (0.7-1.0) mg/dL Estim Creat Clear Calc ml/min Estimated GFR (59 - ) Glucose (65-110) mg/dL POC Capillary Glucose > 500 H* (65-105) mg/dl Hemoglobin A1c (<5.7) % Calcium (8.4-10.2) mg/dL Phosphorus 4.3 Magnesium Cancelled 2.4 H Total Bilirubin (0.2-1.3) mg/dL AST (14-36) U/L ALT (6-35) U/L Alkaline Phosphatase (38-126) U/L Total Protein (6.3-8.2) g/dL Albumin (3.5-5.1) g/dL Beta-Hydroxybutyrate/Acetoacetate 0.48 H (0.02-0.27) mmol/L Urine Color Yellow (Yellow) Urine Appearance Clear (Clear) Urine pH 5.5 (5.0-9.0) Ur Specific [place] 1.020 (1.001-1.035) Urine Protein Negative (Negative) mg/dL Urine Glucose (UA) 3+ H (Negative) mg/dL Urine Ketones Negative (Negative) mg/dL Ur Blood (Man) Negative (Negative) Urine Nitrate Negative (Negative) Urine Bilirubin Negative (Negative) Urine Urobilinogen 0.2 (<2.0) mg/dL Leukocyte Esterase Rfl Negative (Negative) ASHLIE/UL 02/13/25 Range/Units 19:50 WBC (4.5-10.0) K/mm3 RBC (4.2-5.4) M/mm3 Hgb (12.0-15.0) g/dL Hct (37.0-47.0) % MCV (80-100) fl MCH (26-34) pg MCHC (32-36) g/dl RDW (11.5-14.5) % Plt Count (150-375) k/mm3 MPV (7.4-10.4) fl Immature Gran % (Auto) (0-0.5) % Neut % (Auto) (45.5-73.1) % Lymph % (Auto) (18.3-44.2) % [place] % (Auto) (2.6-8.5) % Eos % (Auto) (0-4.4) % Baso % (Auto) (0.2-1.2) % Lymph # (Auto) (0.9-3.2) K/mm3 [place] # (Auto) (0.1-0.6) K/mm3 Eos # (Auto) (0-0.3) K/mm3 Baso # (Auto) (0.0-0.1) K/mm3 Abs Immat Gran (auto) (0.00-0.031) K/mm3 Absolute Neuts (auto) (1.3-6.7) K/mm3 Absolute Nucleated RBC (0.0-0.012) K/mm3 Nucleated RBC % (0.0-0.2) % Sodium (137-145) mmol/L Potassium (3.4-5.0) mmol/L Chloride (98-107) mmol/L Carbon Dioxide (22-30) mmol/L Anion Gap (4-12) mmol/L BUN (7-17) mg/dL Creatinine (0.7-1.0) mg/dL Estim Creat Clear Calc ml/min Estimated GFR (59 - ) Glucose (65-110) mg/dL POC Capillary Glucose > 500 H* (65-105) mg/dl Hemoglobin A1c (<5.7) % Calcium (8.4-10.2) mg/dL Phosphorus Magnesium Total Bilirubin (0.2-1.3) mg/dL AST (14-36) U/L ALT (6-35) U/L Alkaline Phosphatase (38-126) U/L Total Protein (6.3-8.2) g/dL Albumin (3.5-5.1) g/dL Beta-Hydroxybutyrate/Acetoacetate (0.02-0.27) mmol/L Urine Color (Yellow) Urine Appearance (Clear) Urine pH (5.0-9.0) Ur Specific [place] (1.001-1.035) Urine Protein (Negative) mg/dL Urine Glucose (UA) (Negative) mg/dL Urine Ketones (Negative) mg/dL Ur Blood (Man) (Negative) Urine Nitrate (Negative) Urine Bilirubin (Negative) Urine Urobilinogen (<2.0) mg/dL Leukocyte Esterase Rfl (Negative) ASHLIE/UL ABG Data ABG results: 02/13/25 18:29 VBG pH 7.481 H* VBG pCO2 37.4 L VBG pO2 33.9 L VBG HCO3 27.3 O2 Delivery Device Room air O2 Liters/Min Not Reportable FiO2 21 Imaging Data Attestation: I personally reviewed and interpreted this imaging study as follows: Radiologist's impression: ITS Impressions Foot X-Ray 02/13/25 16:20 Impression: No acute fracture or malalignment. Discharge Plan Discharge Clinical Impression: Diabetes mellitus, new onset, Hyperosmolar hyperglycemic state (HHS) Patient Disposition: Still a Patient Condition: Serious Patient Language: Thai Prescriptions: No Action prednisone 20 mg tablet 40 mg PO DAILY 4 Days Qty: 8 0RF azithromycin 250 mg tablet 250 mg PO DAILY 4 Days Qty: 4 0RF Rx Instructions: start on day 2 of therapy Follow-up/Referrals: UNKNOWN,DOCTOR [Primary Care Provider]
[2025-02-13 17:47] LABS: Alanine Aminotransferase 26 U/L (6-35); Albumin Level 4.1 g/dL (3.5-5.1); Alkaline Phosphatase 126 U/L (38-126); Anion Gap 11 mmol/L (4-12); Aspartate Amino Transferase 29 U/L (14-36); Bilirubin,Total 1.0 mg/dL (0.2-1.3); Blood Urea Nitrogen 41 mg/dL (7-17); Calcium 9.1 mg/dL (8.4-10.2); Carbon Dioxide 33 mmol/L (22-30); Chloride 83 mmol/L (98-107); Estimated CRCL calculation 39 ml/min; Estimated Glomerular Filt Rate 44; Glucose 715 mg/dL (65-110); Potassium 4.5 mmol/L (3.4-5.0); Sodium 127 mmol/L (137-145); Total Protein 7.7 g/dL (6.3-8.2)
[2025-02-13 18:37] LABS: Fractional Inspired Oxygen 21 %; HCO3 VBG 27.3 mEq/l (24.0-30.0); PCO2 VBG 37.4 mmHg (42.0-48.0); PO2 VBG 33.9 mmHg (35.0-45.0)
[2025-02-13 18:41] LABS: pH VBG 7.481 (7.300-7.400)
[2025-02-13] MEDS: INSULIN HUMAN REGULAR (*BKC) 100 UNITS/ML 5.2 UNITS IV PUSH (18:43)
[2025-02-13 18:50] LABS: Add Urine Microscopic? NO; Appearance Urine Clear (Clear); Glucose Urine UA 3+ mg/dL (Negative); Leukocyte Esterase Ur Negative LEU/UL (Negative); Nitrate Urine Negative (Negative); Specific Grav Ur 1.020 (1.001-1.035)
[2025-02-13 19:04] LABS: Hemoglobin A1C > 14.0 % (<5.7)
[2025-02-13 19:05] LABS: Beta-Hydroxybutyrate/Acetoace. 0.48 mmol/L (0.02-0.27)
[2025-02-13 19:09] LABS: Anion Gap 13 mmol/L (4-12); Blood Urea Nitrogen 41 mg/dL (7-17); Calcium 9.1 mg/dL (8.4-10.2); Carbon Dioxide 30 mmol/L (22-30); Chloride 84 mmol/L (98-107); Estimated CRCL calculation 42 ml/min; Estimated Glomerular Filt Rate 47; Glucose 677 mg/dL (65-110); Magnesium 2.4 mg/dL (1.6-2.3); Potassium 4.4 mmol/L (3.4-5.0); Sodium 127 mmol/L (137-145)
[2025-02-13 21:02] LABS: Anion Gap 7 mmol/L (4-12); Blood Urea Nitrogen 35 mg/dL (7-17); Calcium 7.8 mg/dL (8.4-10.2); Carbon Dioxide 30 mmol/L (22-30); Chloride 92 mmol/L (98-107); Estimated CRCL calculation 47 ml/min; Estimated Glomerular Filt Rate 54; Glucose 572 mg/dL (65-110); Potassium 3.6 mmol/L (3.4-5.0); Sodium 129 mmol/L (137-145)
[2025-02-13] MEDS: POTASSIUM CHLORIDE INJ 40 MEQ in SODIUM CHLORIDE 0.9% IV 500 ML 130 MEQ IVPB (21:11)
[2025-02-13] MEDS: INSULIN HUMAN REGULAR (*BKC) 100 UNITS in SODIUM CHLORIDE 0.9% IV 99 ML 10 UNITS IV CONT (21:14)
[2025-02-13 21:57] LABS: MRSA (PCR) NOT DETECTED (NOT DETECTE)
--- NOTE | 2025-02-13 21:58 | ADMGEN ---
This patient, Gaby Carey, was admitted to Intensive Care Unit-6 at 2145. Patient/family oriented to hospital policies and general routines including ID bracelet, bed and alarms, visiting hours, pain management, procedures, bathroom and other care routines, personal items, smoking policy, room service/diet, and visiting hours. Information on how to activate the Rapid Response Team has been discussed. Patient/Family are encouraged to report perceived risks to care and to ask questions if they do not understand what they are told or what they should do.
[2025-02-13 22:36] LABS: Anion Gap 10 mmol/L (4-12); Blood Urea Nitrogen 34 mg/dL (7-17); Calcium 8.3 mg/dL (8.4-10.2); Carbon Dioxide 28 mmol/L (22-30); Chloride 94 mmol/L (98-107); Estimated CRCL calculation 46 ml/min; Estimated Glomerular Filt Rate 53; Glucose 471 mg/dL (65-110); Potassium 3.5 mmol/L (3.4-5.0); Sodium 132 mmol/L (137-145)
--- NOTE | 2025-02-13 22:40 | PM.IMHP2 ---
H&P: HPI History of Present Illness Date/Time: 02/13/25 22:40 Chief Complaint: Dehydrated, toe wound Narrative: 79-year-old female with a past medical history of morbid obesity, atrial fibrillation, CHF, essential hypertension, type 2 diabetes mellitus and diabetic peripheral neuropathy who presented to the ER from [facility] via EMS due to weakness, dehydration and worsening toe wound. Source of information is from EMS records, physician and nursing report in the patient who is a fair historian. The patient reports that she has been feeling more fatigued and generally weak for several weeks. She denies any chest pain, shortness breast, palpitations, dysuria or hematuria. She does state that she feels like she has socks on her feet at all times even when she is not wearing any socks. She states that she has had chronic wounds to her feet on the 2nd and 3rd toe of the right foot for 6 years. She states that she has had a dark ?blister? on her 3rd toe for a couple of weeks. She reports that occasionally when she steps wrong she will have a sharp pain in the 3rd toe. She denies any fevers or chills. She has been having increased urinary frequency today after receiving 30 mL/kilos bolus in the ER but was denying any increased frequency prior to that. She reports that her lips and mouth her feeling dry and have been dry for a couple of weeks. She denies a known history of CHF, AFib or diabetes despite being on medications for AFib and CHF. She later stated that she has borderline diabetes but was told recently that she still did not need to be on medications. Her labs in the ER demonstrated a glucose of 715 and hemoglobin A1c greater than 14. She also had a mild acute kidney injury creatinine of 1.18. The patient has never been seen at this facility before and we have no prior lab values available for comparison. The patient also arrived to the hospital without any records from her [facility]. The patient reports that her stools have been dry and somewhat harder than usual. The patient states that she lives in assisted living. Review of Systems Review of Systems: 12 systems were reviewed with pertinent positives and negatives per HPI. Except as documented in the HPI, all other systems were reviewed and are negative. [facility] Past Medical History Medical History (Updated 02/13/25 @ 23:58 by Adela Samayoa DO) Bilateral hearing loss Diabetic peripheral neuropathy Essential hypertension Vitamin D deficiency CHF (congestive heart failure) Chronic anticoagulation Atrial fibrillation Type 2 diabetes mellitus Surgical History Surgical History (Updated 02/13/25 @ 23:18 by Adela Samayoa DO) History of appendectomy History of total abdominal hysterectomy and bilateral salpingo-oophorectomy Status post cataract extraction of both eyes with insertion of intraocular lens Family History Family History (Updated 02/13/25 @ 23:15 by Adela Samayoa DO) Other Unknown family medical history Social History Social History (Updated 02/13/25 @ 23:17 by Adela Samayoa DO) Social History: Patient lives at [facility] since approximately 2022. She was to her for 60 years prior to his in 2022. They had 1 son who is . She a lifelong nonsmoker and does not drink alcohol or use illicit substances. Code status: DNR/DNI (per patient request) Healthcare power of erisa attorney: Rey Carey (brother in law) Smoking status: Never smoker Alcohol intake: never Substance use: never Lack of Transportation: No Lack of Food: Never True Current Housing: I Have Housing Concerned About Future Housing: No Difficulty Paying Gas/Electric Bills: No Difficulty Paying for Meds: No Currently Unemployed: No Education: High School Diploma/GED Difficulty w/ Childcare or Family Care: No Spiritual care concerns: No Meds Home Medications and Allergies Home Medications ?Medication ?Instructions ?Recorded ?Confirmed ?Type acetaminophen 325 mg tablet 325 mg PO Q4H 02/13/25 02/13/25 History apixaban 5 mg tablet (Eliquis) 5 mg PO Q12H 02/13/25 02/13/25 History bumetanide 2 mg tablet 2 mg PO BID 02/13/25 02/13/25 History ergocalciferol (vitamin D2) 1,250 1,250 mcg PO WEEKLY 02/13/25 02/13/25 History mcg (50,000 unit) capsule hydroxyzine HCl 10 mg tablet 10 mg PO HS 02/13/25 02/13/25 History losartan 100 mg tablet 100 mg PO DAILY 02/13/25 02/13/25 History metoprolol tartrate 50 mg tablet 50 mg PO Q12H 02/13/25 02/13/25 History Allergies Allergy/AdvReac Type Severity Reaction Status Date / Time oranges Allergy Intermediate Hives Uncoded 02/13/25 22:47 Vital Signs Vital Signs - 24 hr 02/13/25 14:08 02/13/25 16:24 02/13/25 16:25 Temperature 97.6 F Pulse Rate 90 87 77 Respiratory Rate 16 20 19 Blood Pressure 129/102 H 137/56 L 137/56 L Pulse Oximetry 97 94 97 Oxygen Delivery Room Air Fraction of Inspired Oxygen 02/13/25 16:31 02/13/25 19:00 02/13/25 19:46 Temperature Pulse Rate 80 78 76 Respiratory Rate 18 19 18 Blood Pressure 138/75 132/77 150/64 H Pulse Oximetry 98 97 99 Oxygen Delivery Fraction of Inspired Oxygen 02/13/25 20:00 02/13/25 22:01 02/13/25 22:39 Temperature Pulse Rate 76 74 73 Respiratory Rate 20 14 Blood Pressure 149/71 H 156/72 H Pulse Oximetry 100 100 100 Oxygen Delivery Room Air Fraction of Inspired Oxygen 21 Exam Narrative: Weight 107 kg BMI 40.5 Const: Other: Morbidly obese, no acute distress, appears stated age HENMT: Other: Patient has fair dentition with several dental caries noted, dry mucous membranes, crowded posterior oropharynx, no oral pharyngeal erythema, dried cracked lips Eyes: Other: Pupils are equal and reactive with bilateral lens implants noted, no scleral icterus Neck: Other: Large neck circumference, neck is supple Resp: Other: Clear to auscultation bilaterally, no increased work of breathing Cardio: Other: Irregularly irregular, regular rate, 2+ bilateral radial pedal pulses, no murmur, no JVD GI: Other: Distended, soft, nontender, normoactive bowel sounds Skin: Other: Generalized pallor, non jaundice, 4-5 second cap refill Neuro: Other: Alert oriented to person place time but still not the greatest historian, speech is clear, no facial asymmetry, paresthesias to the bilateral feet in the stocking distribution, hard of hearing Extrem: Other: No clubbing, cyanosis or edema, spider angiomas of bilateral feet, 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1 L Johnston % (Auto) 10.9 H Eos % (Auto) 0.9 Baso % (Auto) 0.6 Lymph # (Auto) 0.93 Johnston # (Auto) 0.7 H Eos # (Auto) 0.1 Baso # (Auto) 0.0 Abs Immat Gran (auto) 0.04 H Absolute Neuts (auto) 4.8 Absolute Nucleated RBC 0.000 Nucleated RBC % 0.0 VBG pH 7.481 H* VBG pCO2 37.4 L VBG pO2 33.9 L VBG HCO3 27.3 O2 Delivery Device Room air O2 Liters/Min Not Reportable FiO2 21 Sodium 127 L Potassium 4.5 Chloride 83 L Carbon Dioxide 33 H Anion Gap 11 BUN 41 H Creatinine 1.18 H Estim Creat Clear Calc 39 Estimated GFR 44 L Glucose 715 H* POC Capillary Glucose Hemoglobin A1c Lactic Acid Calcium 9.1 Phosphorus Magnesium Total Bilirubin 1.0 AST 29 ALT 26 Alkaline Phosphatase 126 Total Protein 7.7 Albumin 4.1 Beta-Hydroxybutyrate/Acetoacetate Urine Color Urine Appearance Urine pH Ur Specific [place] Urine Protein Urine Glucose (UA) Urine Ketones Ur Blood (Man) Urine Nitrate Urine Bilirubin Urine Urobilinogen Leukocyte Esterase Rfl Nasal MRSA (PCR) 02/13/25 02/13/25 02/13/25 18:30 18:30 18:30 WBC RBC Hgb Hct MCV MCH MCHC RDW Plt Count MPV Immature Gran % (Auto) Neut % (Auto) Lymph % (Auto) Johnston % (Auto) Eos % (Auto) Baso % (Auto) Lymph # (Auto) Johnston # (Auto) Eos # (Auto) Baso # (Auto) Abs Immat Gran (auto) Absolute Neuts (auto) Absolute Nucleated RBC Nucleated RBC % VBG pH VBG pCO2 VBG pO2 VBG HCO3 O2 Delivery Device O2 Liters/Min FiO2 Sodium 127 L Potassium 4.4 Chloride 84 L Carbon Dioxide 30 Anion Gap 13 H BUN 41 H Creatinine 1.11 H Estim Creat Clear Calc 42 Estimated GFR 47 L Glucose 677 H* POC Capillary Glucose Hemoglobin A1c > 14.0 H Lactic Acid Calcium 9.1 Phosphorus Cancelled 4.3 Magnesium Cancelled 2.4 H Total Bilirubin AST ALT Alkaline Phosphatase Total Protein Albumin Beta-Hydroxybutyrate/Acetoacetate 0.48 H Urine Color Yellow Urine Appearance Clear Urine pH 5.5 Ur Specific [place] 1.020 Urine Protein Negative Urine Glucose (UA) 3+ H Urine Ketones Negative Ur Blood (Man) Negative Urine Nitrate Negative Urine Bilirubin Negative Urine Urobilinogen 0.2 Leukocyte Esterase Rfl Negative Nasal MRSA (PCR) 02/13/25 02/13/25 02/13/25 18:46 19:50 20:32 WBC RBC Hgb Hct MCV MCH MCHC RDW Plt Count MPV Immature Gran % (Auto) Neut % (Auto) Lymph % (Auto) Johnston % (Auto) Eos % (Auto) Baso % (Auto) Lymph # (Auto) Johnston # (Auto) Eos # (Auto) Baso # (Auto) Abs Immat Gran (auto) Absolute Neuts (auto) Absolute Nucleated RBC Nucleated RBC % VBG pH VBG pCO2 VBG pO2 VBG HCO3 O2 Delivery Device O2 Liters/Min FiO2 Sodium 129 L Potassium 3.6 Chloride 92 L Carbon Dioxide 30 Anion Gap 7 BUN 35 H Creatinine 0.98 Estim Creat Clear Calc 47 Estimated GFR 54 L Glucose 572 H* POC Capillary Glucose > 500 H* > 500 H* Hemoglobin A1c Lactic Acid 1.3 Calcium 7.8 L Phosphorus Magnesium Total Bilirubin AST ALT Alkaline Phosphatase Total Protein Albumin Beta-Hydroxybutyrate/Acetoacetate Urine Color Urine Appearance Urine pH Ur Specific [place] Urine Protein Urine Glucose (UA) Urine Ketones Ur Blood (Man) Urine Nitrate Urine Bilirubin Urine Urobilinogen Leukocyte Esterase Rfl Nasal MRSA (PCR) Not detected 02/13/25 02/13/25 02/13/25 21:19 22:17 22:18 WBC RBC Hgb Hct MCV MCH MCHC RDW Plt Count MPV Immature Gran % (Auto) Neut % (Auto) Lymph % (Auto) Johnston % (Auto) Eos % (Auto) Baso % (Auto) Lymph # (Auto) Johnston # (Auto) Eos # (Auto) Baso # (Auto) Abs Immat Gran (auto) Absolute Neuts (auto) Absolute Nucleated RBC Nucleated RBC % VBG pH VBG pCO2 VBG pO2 VBG HCO3 O2 Delivery Device O2 Liters/Min FiO2 Sodium 132 L Potassium 3.5 Chloride 94 L Carbon Dioxide 28 Anion Gap 10 BUN 34 H Creatinine 1.01 H Estim Creat Clear Calc 46 Estimated GFR 53 L Glucose 471 H POC Capillary Glucose > 500 H* 464 H Hemoglobin A1c Lactic Acid Calcium 8.3 L Phosphorus Magnesium Total Bilirubin AST ALT Alkaline Phosphatase Total Protein Albumin Beta-Hydroxybutyrate/Acetoacetate Urine Color Urine Appearance Urine pH Ur Specific [place] Urine Protein Urine Glucose (UA) Urine Ketones Ur Blood (Man) Urine Nitrate Urine Bilirubin Urine Urobilinogen Leukocyte Esterase Rfl Nasal MRSA (PCR) 02/13/25 23:12 WBC RBC Hgb Hct MCV MCH MCHC RDW Plt Count MPV Immature Gran % (Auto) Neut % (Auto) Lymph % (Auto) Johnston % (Auto) Eos % (Auto) Baso % (Auto) Lymph # (Auto) Johnston # (Auto) Eos # (Auto) Baso # (Auto) Abs Immat Gran (auto) Absolute Neuts (auto) Absolute Nucleated RBC Nucleated RBC % VBG pH VBG pCO2 VBG pO2 VBG HCO3 O2 Delivery Device O2 Liters/Min FiO2 Sodium Potassium Chloride Carbon Dioxide Anion Gap BUN Creatinine Estim Creat Clear Calc Estimated GFR Glucose POC Capillary Glucose 348 H Hemoglobin A1c Lactic Acid Calcium Phosphorus Magnesium Total Bilirubin AST ALT Alkaline Phosphatase Total Protein Albumin Beta-Hydroxybutyrate/Acetoacetate Urine Color Urine Appearance Urine pH Ur Specific [place] Urine Protein Urine Glucose (UA) Urine Ketones Ur Blood (Man) Urine Nitrate Urine Bilirubin Urine Urobilinogen Leukocyte Esterase Rfl Nasal MRSA (PCR) Impressions Foot X-Ray 02/13/25 16:20 Impression: No acute fracture or malalignment. Chest X-Ray 02/13/25 21:12 IMPRESSION: There are patchy infiltrates bilaterally. Quality VTE Prophylaxis VTE prophylaxis: pharmacologic ordered (Continue home Eliquis) Assessment and Plan Assessment and plan (1) Hyperosmolar hyperglycemic state (HHS): Code(s): E11.00 - Type 2 diabetes mellitus with hyperosmolarity without nonketotic hyperglycemic-hyperosmolar coma (NKHHC) Status: Acute (2) Pseudohyponatremia: Code(s): R79.89 - Other specified abnormal findings of blood chemistry Status: Acute (3) Acute kidney injury: Code(s): N17.9 - Acute kidney failure, unspecified Status: Acute (4) Abnormal chest x-ray: Code(s): R93.89 - Abnormal findings on diagnostic imaging of other specified body structures Status: Acute (5) Diabetic peripheral neuropathy: Code(s): E11.42 - Type 2 diabetes mellitus with diabetic polyneuropathy Status: Acute (6) Chronic anticoagulation: Code(s): Z79.01 - meterman (current) use of anticoagulants Status: Acute (7) Atrial fibrillation with normal ventricular rate: Code(s): I48.91 - Unspecified atrial fibrillation Status: Acute (8) Counseling regarding goals of care: Code(s): Z71.89 - Other specified counseling Status: Acute Plan The patient presented with severe hyperglycemia. It sounds like the patient likely had previously diet-controlled diabetes with her report of ?borderline diabetes?. The patient's hemoglobin A1c greater than 14 suggesting that her glucoses have been uncontrolled for several months. She has dry mucous membranes, and acute kidney injury with at least some component of dehydration. Will hold home Bumex. She received a 30 mL/kilos fluid bolus in the ER in still appears intervascular volume depleted. Glucoses did come down into the 600s with IV fluids but hyperglycemia is persisting and subsequently she was admitted to the ICU for hyperosmolar hyperglycemic state. Patient's glucoses have been coming down appropriately with insulin drip I anticipate that with repeat labs in a.m. will bill the transition the patient to long-acting insulin with mealtime bolus insulin. Will change diet to consistent carbohydrate at this time. Will continue monitor Accu-Cheks hourly well on insulin drip. No need for serial BMP since patient is not in DKA. Will check TSH with a.m. labs to rule out other underlying endocrine disorder. Although the patient has an abnormal chest x-ray she does not have any respiratory symptoms to suggest acute pneumonia or infectious process. She also has a wound on her 3rd toe that does not appear acute and does not appear to be infected. The area of skin discoloration is firm and dry. She does not have a white count or fever sit to suggest acute infection. At this time will hold off on any antibiotic therapy and will monitor. Will check COVID flu and RSV PCR given the patient lives in a group setting Will repeat CBC in a.m.. Will also check CRP in a.m.. Patient has a history of chronic AFib will continue home beta-caty and Eliquis. The patient reports that if her heart were to stop she would want to be allowed to have a natural in would not want CPR or intubation. Code status has been changed to DNR/DNI at this time per patient request. 45 minute spent critical care activities. Due to a high probability of clinically significant, life threatening deterioration, the patient required my highest level of preparedness to intervene emergently and I personally spent this critical care time directly and personally managing the patient. This critical care time included obtaining a history; examining the patient; pulse oximetry; ordering and review of studies; arranging urgent treatment with development of a management plan; evaluation of patient's response to treatment; frequent reassessment; and discussions with other providers. It was exclusive of separately billable procedures and treating other patients and teaching time. Please see Assessment and Plan section and the rest of the note for further information on patient assessment and treatment. Hospitalist [facility] Advance Care Plan I have confirmed that the patient's Advanced Care Plan is present, code status is documented, or surrogate decision maker is listed in patient medical record.: Yes Medication Reconciliation I have utilized all available resources to obtain, update and review the patients current medications (includes all prescriptions, OTC, herbals, cannabis, and nutritional supplements).: Yes
[2025-02-13] MEDS: SODIUM CHLORIDE 0.9% IV 1,000 ML 150 ML IV CONT (22:45)
[2025-02-13] MEDS: METOPROLOL TARTRATE 50 MG TAB PO (22:50)
[2025-02-13] MEDS: APIXABAN 5 MG TABLET PO (22:50)
[2025-02-14] VITALS (17 sets, daily range): BP systolic 88–159; BP diastolic 45–95; PULSE 60–101; RESP 15–27; TEMP 36.2–36.7; O2SAT 93–100
--- NOTE | 2025-02-14 | ECHO_ITS ---
Patient Info Name: Gaby Carey Age: 79 years : 1945 Gender: Female Ht: 64 in Wt: 229 lbs BSA: 2.22 m2 HR: 82 bpm BP: 105 / 59 mmHg Heart Rhythm: Atrial Fibrillation Technical Quality: Poor Exam Date: 02/14/2025 12:19 PM Patient Status: I Admit Date: 02/13/2025 Exam Type: CA echo dop color flow w con Complete two-dimensional, color flow and Doppler transthoracic echocardiogram is performed with contrast to opacify the left ventricle and to improve the deliniation of the left ventricle endocardial borders. Staff Referring Physician: Lisa Pendleton Cabinet Assembler: Jared Lion III Attending Provider: Adela Samayoa DO Contrast/Agitated Saline Contrast/Ag. Saline: Definity Amount: 2.00 ml Administered By: Jared Lion III Existing IV Access: Yes IV Access Condition: patent with no signs of infiltration Reason for Poor Study: poor echocardiographic windows Summary 1. Left ventricular systolic function is normal, estimated at 55-60. 2. There is mildly increased left ventricular wall thickness. 3. The left ventricular diastolic function is abnormal. 4. Left atrial chamber dimension is moderately enlarged. 5. There is moderate aortic valve stenosis with a peak velocity of 203 cm/s, mean gradient of 9 mmHg, and aortic valve area of 1.4 cm2. 6. There is mild aortic valve regurgitation. 7. There is mild aortic valve calcification. 8. There is mild mitral valve regurgitation. 9. There is mild tricuspid valve regurgitation. 10. Moderate pulmonary hypertension, estimated pulmonary arterial systolic pressure is 45 mmHg. 11. There is small pericardial effusion. Left Ventricle Left ventricular chamber dimension is normal. Left ventricular systolic function is normal, estimated at 55-60. There is mildly increased left ventricular wall thickness. Left ventricular septal wall motion is normal. The left ventricular diastolic function is abnormal. Right Ventricle Right ventricular chamber dimension is normal. Right ventricular systolic function is normal. Left Atria Left atrial chamber dimension is moderately enlarged. Right Atria Right atrial chamber dimension is normal. Aortic Valve The aortic valve is probable trileaflet. There is moderate aortic valve stenosis with a peak velocity of 203 cm/s, mean gradient of 9 mmHg, and aortic valve area of 1.4 cm2. There is mild aortic valve regurgitation. There is mild aortic valve calcification. Pulmonic Valve The pulmonic valve is normal. There is no pulmonic valve stenosis. There is no pulmonic regurgitation. Mitral Valve The mitral valve has normal leaflets. There is no mitral valve stenosis. There is mild mitral valve regurgitation. Tricuspid Valve The tricuspid valve leaflets are normal. There is no significant tricuspid valve stenosis. There is mild tricuspid valve regurgitation. Moderate pulmonary hypertension, estimated pulmonary arterial systolic pressure is 45 mmHg. Pericardium/Pleural There is small pericardial effusion. Inferior Vena Cava Normal inferior vena cava with >50% collapse upon inspiration consistent with normal right atrial pressure, 5 mmHg. Aorta The aortic root size at the sinus of Valsalva is normal. The prox ascending aorta size is normal. Left Ventricular Outflow Tract Name Value Normal LVOT 2D LVOT Diameter 2.0 cm LVOT Doppler LVOT Peak Velocity 81 cm/s LVOT Peak Gradient 3 mmHg LVOT Mean Gradient 1 mmHg LVOT VTI 18 cm LVOT VTI/AV VTI Ratio 0.4 LVOT Stroke Volume 56 ml LVOT CO 5.2 l/min LVOT CI 2.4 l/min/m2 Pulmonic Valve Name Value Normal PV Doppler PV Peak Velocity 67 cm/s PV Peak Gradient 2 mmHg PV Mean Gradient 1 mmHg Mitral Valve Name Value Normal MV Doppler MV Peak Gradient 4 mmHg MV Mean Gradient 2 mmHg MV Area (Cont Eq VTI) 4.1 cm2 MV Diastolic Function MV E Peak Velocity 97 cm/s MV A Peak Velocity 1 cm/s MV E/A 107.2 MV Decel Time (PW) 155 ms MV Annular TDI MV E/e' (Septal) 10.0 MV E/e' (Lateral) 7.4 MV E/e' (Average) 8.7 Tricuspid Valve Name Value Normal TV Regurgitation Doppler TR Peak Velocity 318 cm/s TR Peak Gradient 40 mmHg Estimated PAP/RSVP RA Pressure 5 mmHg <=5 PA Systolic Pressure 45 mmHg <36 RV Systolic Pressure 45 mmHg <36 TV Annular TDI TV Lateral Debi s' Velocity 11.5 cm/s >=9.5 Aortic Valve Name Value Normal AV Doppler AV Peak Velocity 203 cm/s AV Peak Gradient 16 mmHg AV Mean Gradient 9 mmHg AV VTI 41 cm AV Area (Cont Eq VTI) 1.4 cm2 >=3.0 AV Area (Cont Eq Vick) 1.2 cm2 AV DI (Vick) 0.40 AV Regurgitation 2D LVOT Area 3.1 cm2 Ventricles Name Value Normal LV Dimensions 2D/MM IVS Diastolic Thickness (2D) 1.0 cm 0.6-1.0 LVID Diastole (2D) 4.5 cm 3.8-5.2 LVIW Diastolic Thickness (2D) 1.0 cm 0.6-0.9 LVID Systole (2D) 2.9 cm 2.2-3.5 LVOT Diameter 2.0 cm LV Mass (2D Cubed) 149.91 g 67.00-162.00 LV Mass Index (2D Cubed) 68 g/m2 43-95 Relative Wall Thickness (2D) 0.44 <=0.42 LV Fractional Shortening/Ejection Fraction 2D/MM LV Fractional Shortening (2D) 32 % 27-45 LV EF (2D Teichholz) 65 % LV Diastolic Volume (4C MOD) 93 ml LV EF (4C MOD) 67 % LV Diastolic Volume (2C MOD) 63 ml LV EF (2C MOD) 70 % LV Diastolic Volume (BP MOD) 84 ml 46-106 LV Diastolic Volume Index (BP MOD) 38 ml/m2 29-61 LV Systolic Volume (BP MOD) 27 ml 14-42 LV Systolic Volume Index (BP MOD) 12 ml/m2 8-24 LV EF (BP MOD) 68 % 54-74 LV Diastolic Length (4C) 6.2 cm LV Systolic Length (4C) 5.3 cm LV Stroke Volume (4C MOD) 63 ml Atria Name Value Normal LA Dimensions LA Volume (4C A-L) 111 ml LA Volume (BP A-L) 97 ml RA Dimensions RA Systolic Major [place] Length (4C) 6.9 cm 2.2-2.8 RA Area (4C) 22.6 cm2 <=18.0 Report Signatures
[2025-02-14] MEDS: DEXTROSE 5%/0.45% SOD CHL 1,000 ML 150 ML IV CONT (01:18)
[2025-02-14 04:06] LABS: Hematocrit 36.9 % (37.0-47.0); Hemoglobin 12.3 g/dL (12.0-15.0); Immature Granulocyte Percent A 0.9 % (0-0.5); Lymphocytes Absolute Auto 1.44 K/mm3 (0.9-3.2); Mean Corpuscular HGB Conc 33.3 g/dl (32-36); Mean Corpuscular Hemoglobin 28.2 pg (26-34); Mean Corpuscular Volume 84.6 fl (80-100); Nucleated Red Blood Cells Absolute Auto 0.000 K/mm3 (0.0-0.012); Nucleated Red Blood Cells Perc 0.0 % (0.0-0.2); Platelet Count Result 179 k/mm3 (150-375); Red Blood Count 4.36 M/mm3 (4.2-5.4); White Blood Count 8.0 K/mm3 (4.5-10.0)
[2025-02-14 04:21] LABS: Anion Gap 5 mmol/L (4-12); Blood Urea Nitrogen 30 mg/dL (7-17); Calcium 8.0 mg/dL (8.4-10.2); Carbon Dioxide 29 mmol/L (22-30); Chloride 101 mmol/L (98-107); Estimated CRCL calculation 50 ml/min; Estimated Glomerular Filt Rate 59; Glucose 128 mg/dL (65-110); Potassium 3.6 mmol/L (3.4-5.0); Sodium 135 mmol/L (137-145)
[2025-02-14 04:51] LABS: Thyroid Stimulating Hormone Reflex 3.490 uIU/mL (0.465-4.68)
[2025-02-14] MEDS: APIXABAN 5 MG TABLET PO ×2 (08:11→21:13)
[2025-02-14] MEDS: INSULIN ASPART (*BKC) 100 UNITS/ML SUB-Q ×3 (08:11→17:18)
[2025-02-14] MEDS: ESCITALOPRAM OXALATE 10 MG TABLET PO (08:11)
[2025-02-14] MEDS: METOPROLOL TARTRATE 50 MG TAB PO ×2 (08:12→21:13)
[2025-02-14 08:24] LABS: Influenza A QL RT-PCR Negative (Negative); Influenza B QL RT-PCR Negative (Negative); RSV RNA, RT-PCR Negative (Negative); SARS-CoV-2 RNA PCR Negative (Negative)
[2025-02-14] MEDS: INSULIN GLARGINE (*BKC) 100 UNITS/ML 10 UNITS SUB-Q (08:36)
--- NOTE | 2025-02-14 09:39 | P.PNIM_ITS ---
Assessment and Plan Assessment and Plan (1) Hyperosmolar hyperglycemic state (HHS): Code(s): E11.00 - Type 2 diabetes mellitus with hyperosmolarity without nonketotic hyperglycemic-hyperosmolar coma (NKHHC) Status: Acute Assessment and Plan: Improved. Patient off insulin infusion. Transition to subcutaneous insulin Consistent carbohydrate diet Diabetes take educator and dietitian consult (2) Pseudohyponatremia: Code(s): R79.89 - Other specified abnormal findings of blood chemistry Status: Acute Assessment and Plan: Secondary to hyperglycemia. Resolved. 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 Status: Acute (6) Atrial fibrillation with normal ventricular rate: Code(s): I48.91 - Unspecified atrial fibrillation Status: Acute Assessment and Plan: Continue beta-caty and Eliquis Plan Consult PT OT DVT prophylaxis -Eliquis Nutrition -diabetic diet Code Status - Full Code Subjective Date/time seen: 02/14/25 Patient off of insulin infusion and now on subcutaneous insulin and on diabetic diet Afebrile and stable vital signs On room air Review of Systems Review of Systems: All systems reviewed & are unremarkable except as noted in HPI and below (HPI) Exam Narrative: Weight 107 kg BMI 40.5 Const: Other: Morbidly obese, no acute distress, appears stated age HENMT: Other: Patient has fair dentition with several dental caries noted, dry mucous membranes, crowded posterior oropharynx, no oral pharyngeal erythema, dried cracked lips Eyes: Other: Pupils are equal and reactive with bilateral lens implants noted, no scleral icterus Neck: Other: Large neck circumference, neck is supple Resp: Other: Clear to auscultation bilaterally, no increased work of breathing Cardio: Other: Irregularly irregular, regular rate, 2+ bilateral radial pedal pulses, no murmur, no JVD GI: Other: Distended, soft, nontender, normoactive bowel sounds Skin: Other: Generalized pallor, non jaundice, 4-5 second cap refill Neuro: Other: Alert oriented to person place time but still not the greatest historian, speech is clear, no facial asymmetry, paresthesias to the bilateral feet in the stocking distribution, hard of hearing Extrem: Other: No clubbing, cyanosis or edema, spider angiomas of bilateral feet, 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, 5/5 strength on plantar and dorsiflexion bilateral, callused noted to the plantar surfaces of the 1st and 2nd digit of the right foot, area of brown firm area to the lateral 3rd digit, no areas of erythema or obvious infection Psych: Other: Appropriate mood and affect, pleasant and cooperative, judgment and insight intact Objective Data Vital Signs Vital Signs: Vital Signs - 24 hr 02/13/25 14:08 02/13/25 16:24 02/13/25 16:25 Temperature 36.4 C Pulse Rate 90 87 77 Respiratory Rate 16 20 19 Blood Pressure 129/102 H 137/56 L 137/56 L Pulse Oximetry 97 94 97 Oxygen Delivery Room Air Fraction of Inspired Oxygen 02/13/25 16:31 02/13/25 19:00 02/13/25 19:46 Temperature Pulse Rate 80 78 76 Respiratory Rate 18 19 18 Blood Pressure 138/75 132/77 150/64 H Pulse Oximetry 98 97 99 Oxygen Delivery Fraction of Inspired Oxygen 02/13/25 20:00 02/13/25 21:55 02/13/25 22:00 Temperature 36.6 C Pulse Rate 76 81 75 Respiratory Rate 20 25 H Blood Pressure 149/71 H 142/78 H Pulse Oximetry 100 100 Oxygen Delivery Fraction of Inspired Oxygen 02/13/25 22:01 02/13/25 22:01 02/13/25 22:16 Temperature Pulse Rate 74 78 85 Respiratory Rate 14 19 21 H Blood Pressure 156/72 H 144/76 H 125/76 Pulse Oximetry 100 100 98 Oxygen Delivery Fraction of Inspired Oxygen 02/13/25 22:31 02/13/25 22:39 02/13/25 22:50 Temperature Pulse Rate 79 73 72 Respiratory Rate 16 Blood Pressure 116/67 Pulse Oximetry 98 100 Oxygen Delivery Room Air Fraction of Inspired Oxygen 21 02/13/25 23:00 02/13/25 23:01 02/14/25 00:00 Temperature Pulse Rate 72 72 66 Respiratory Rate 22 H 20 Blood Pressure 109/65 Pulse Oximetry 99 100 Oxygen Delivery Fraction of Inspired Oxygen 02/14/25 00:00 02/14/25 00:01 02/14/25 01:01 Temperature 36.7 C Pulse Rate 64 60 Respiratory Rate 17 20 Blood Pressure 103/57 L 102/55 L Pulse Oximetry 99 97 Oxygen Delivery Room Air Fraction of Inspired Oxygen 02/14/25 02:00 02/14/25 02:01 02/14/25 03:01 Temperature Pulse Rate 69 71 67 Respiratory Rate 18 16 Blood Pressure 100/55 L 96/55 L Pulse Oximetry 97 96 Oxygen Delivery Fraction of Inspired Oxygen 02/14/25 04:00 02/14/25 04:00 02/14/25 04:01 Temperature 36.7 C Pulse Rate 79 88 Respiratory Rate 26 H Blood Pressure 108/62 Pulse Oximetry 97 Oxygen Delivery Room Air Fraction of Inspired Oxygen 02/14/25 05:01 02/14/25 06:00 02/14/25 06:01 Temperature Pulse Rate 80 89 89 Respiratory Rate 23 H 17 Blood Pressure 116/60 88/49 L Pulse Oximetry 97 96 Oxygen Delivery Fraction of Inspired Oxygen 02/14/25 06:07 02/14/25 07:01 02/14/25 08:12 Temperature Pulse Rate 88 80 82 Respiratory Rate 27 H 15 Blood Pressure 95/50 L 105/59 L Pulse Oximetry 98 98 Oxygen Delivery Fraction of Inspired Oxygen Intake/Output Intake/Output: Intake & Output 02/11/25 02/12/25 02/13/25 02/14/25 23:59 23:59 23:59 23:59 Intake Total 2112.0 570.2 Output Total 850 Balance 2112.0 -279.8 Meds/Results Medications: Active Medications Generic Name Dose Route Start Last Admin Trade Name Freq PRN Reason Stop Dose Admin Apixaban 5 mg 02/13/25 22:45 02/14/25 08:11 Apixaban 5 Mg Tablet PO 5 mg Q12HR ERNESTO Administration Dextrose 12.5 gm 02/13/25 18:04 Dextrose 50% 25 Gm/50 Ml Syringe IV PUSH PRN PRN Hypoglycemia Protocol Escitalopram Oxalate 10 mg 02/14/25 09:00 02/14/25 08:11 Escitalopram Oxalate 10 Mg Tablet PO 10 mg DAILY ERNESTO Administration Glucagon 1 mg 02/13/25 18:04 Glucagon For Inj 1 Mg Vial IM PRN PRN Hypoglycemia Protocol Glucose 15 gm 02/13/25 18:04 Glucose Oral Gel 15 Gm Of Glucse In 37.5 Gm Tube PO PRN PRN Hypoglycemia Protocol Hydroxyzine HCl 10 mg 02/13/25 22:45 02/13/25 23:43 Hydroxyzine Hcl 10 Mg Tablet PO 10 mg HS ERNESTO Administration Dextrose 1,000 mls @ 100 mls/hr 02/13/25 18:04 Dextrose 5% 1,000 Ml IVPB PRN PRN Hypoglycemia Protocol Insulin Aspart 3 - 6 units 02/14/25 08:00 02/14/25 08:11 Insulin Aspart (*Bkc) 100 Units/Ml SUB-Q 4 units TIDWM ERNESTO Administration Protocol Insulin Glargine 10 units 02/14/25 09:00 02/14/25 08:36 Insulin Glargine (*Bkc) 100 Units/Ml SUB-Q 10 units DAILY ERNESTO Administration Losartan Potassium 100 mg 02/14/25 09:00 Losartan Potassium 100 Mg Tablet PO DAILY ERNESTO Metoprolol Tartrate 50 mg 02/13/25 22:40 02/14/25 08:12 Metoprolol Tartrate 50 Mg Tab PO 50 mg Q12HR ERNESTO Administration Nifedipine 60 mg 02/14/25 09:00 02/14/25 08:12 Nifedipine 30 Mg Tab.Er.24 PO 60 mg DAILY ERNESTO Administration Potassium Chloride 40 meq 02/14/25 09:35 Potassium Chloride 20 Meq Er Tablet PO 02/14/25 09:36 ONCE ONE Radiology Results: ITS Impressions Foot X-Ray 02/13/25 16:20 Impression: No acute fracture or malalignment. Chest X-Ray 02/13/25 21:12 IMPRESSION: There are patchy infiltrates bilaterally. Labs Labs: Laboratory Results - last 24 hr 02/13/25 02/13/25 02/13/25 16:21 17:13 18:29 WBC 6.6 RBC 4.87 Hgb 13.9 Hct 41.6 MCV 85.4 MCH 28.5 MCHC 33.4 RDW 13.4 Plt Count 174 MPV 12.3 H Immature Gran % (Auto) 0.6 H Neut % (Auto) 72.9 Lymph % (Auto) 14.1 L [place] % (Auto) 10.9 H Eos % (Auto) 0.9 Baso % (Auto) 0.6 Lymph # (Auto) 0.93 [place] # (Auto) 0.7 H Eos # (Auto) 0.1 Baso # (Auto) 0.0 Abs Immat Gran (auto) 0.04 H Absolute Neuts (auto) 4.8 Absolute Nucleated RBC 0.000 Nucleated RBC % 0.0 VBG pH 7.481 H* VBG pCO2 37.4 L VBG pO2 33.9 L VBG HCO3 27.3 O2 Delivery Device Room air O2 Liters/Min Not Reportable FiO2 21 Sodium 127 L Potassium 4.5 Chloride 83 L Carbon Dioxide 33 H Anion Gap 11 BUN 41 H Creatinine 1.18 H Estim Creat Clear Calc 39 Estimated GFR 44 L Glucose 715 H* POC Capillary Glucose Hemoglobin A1c Lactic Acid Calcium 9.1 Phosphorus Magnesium Total Bilirubin 1.0 AST 29 ALT 26 Alkaline Phosphatase 126 Total Protein 7.7 Albumin 4.1 Beta-Hydroxybutyrate/Acetoacetate TSH (Reflex) Urine Color Urine Appearance Urine pH Ur Specific [place] Urine Protein Urine Glucose (UA) Urine Ketones Ur Blood (Man) Urine Nitrate Urine Bilirubin Urine Urobilinogen Leukocyte Esterase Rfl Nasal MRSA (PCR) Influenza A (RT-PCR) Influenza B (RT-PCR) RSV (RT-PCR) SARS-CoV-2 RNA (RT-PCR) 02/13/25 02/13/25 02/13/25 18:30 18:30 18:30 WBC RBC Hgb Hct MCV MCH MCHC RDW Plt Count MPV Immature Gran % (Auto) Neut % (Auto) Lymph % (Auto) [place] % (Auto) Eos % (Auto) Baso % (Auto) Lymph # (Auto) [place] # (Auto) Eos # (Auto) Baso # (Auto) Abs Immat Gran (auto) Absolute Neuts (auto) Absolute Nucleated RBC Nucleated RBC % VBG pH VBG pCO2 VBG pO2 VBG HCO3 O2 Delivery Device O2 Liters/Min FiO2 Sodium 127 L Potassium 4.4 Chloride 84 L Carbon Dioxide 30 Anion Gap 13 H BUN 41 H Creatinine 1.11 H Estim Creat Clear Calc 42 Estimated GFR 47 L Glucose 677 H* POC Capillary Glucose Hemoglobin A1c > 14.0 H Lactic Acid Calcium 9.1 Phosphorus Cancelled 4.3 Magnesium Cancelled 2.4 H Total Bilirubin AST ALT Alkaline Phosphatase Total Protein Albumin Beta-Hydroxybutyrate/Acetoacetate 0.48 H TSH (Reflex) Urine Color Yellow Urine Appearance Clear Urine pH 5.5 Ur Specific [place] 1.020 Urine Protein Negative Urine Glucose (UA) 3+ H Urine Ketones Negative Ur Blood (Man) Negative Urine Nitrate Negative Urine Bilirubin Negative Urine Urobilinogen 0.2 Leukocyte Esterase Rfl Negative Nasal MRSA (PCR) Influenza A (RT-PCR) Influenza B (RT-PCR) RSV (RT-PCR) SARS-CoV-2 RNA (RT-PCR) 02/13/25 02/13/25 02/13/25 18:46 19:50 20:32 WBC RBC Hgb Hct MCV MCH MCHC RDW Plt Count MPV Immature Gran % (Auto) Neut % (Auto) Lymph % (Auto) [place] % (Auto) Eos % (Auto) Baso % (Auto) Lymph # (Auto) [place] # (Auto) Eos # (Auto) Baso # (Auto) Abs Immat Gran (auto) Absolute Neuts (auto) Absolute Nucleated RBC Nucleated RBC % VBG pH VBG pCO2 VBG pO2 VBG HCO3 O2 Delivery Device O2 Liters/Min FiO2 Sodium 129 L Potassium 3.6 Chloride 92 L Carbon Dioxide 30 Anion Gap 7 BUN 35 H Creatinine 0.98 Estim Creat Clear Calc 47 Estimated GFR 54 L Glucose 572 H* POC Capillary Glucose > 500 H* > 500 H* Hemoglobin A1c Lactic Acid 1.3 Calcium 7.8 L Phosphorus Magnesium Total Bilirubin AST ALT Alkaline Phosphatase Total Protein Albumin Beta-Hydroxybutyrate/Acetoacetate TSH (Reflex) Urine Color Urine Appearance Urine pH Ur Specific [place] Urine Protein Urine Glucose (UA) Urine Ketones Ur Blood (Man) Urine Nitrate Urine Bilirubin Urine Urobilinogen Leukocyte Esterase Rfl Nasal MRSA (PCR) Not detected Influenza A (RT-PCR) Influenza B (RT-PCR) RSV (RT-PCR) SARS-CoV-2 RNA (RT-PCR) 02/13/25 02/13/25 02/13/25 21:19 22:17 22:18 WBC RBC Hgb Hct MCV MCH MCHC RDW Plt Count MPV Immature Gran % (Auto) Neut % (Auto) Lymph % (Auto) [place] % (Auto) Eos % (Auto) Baso % (Auto) Lymph # (Auto) [place] # (Auto) Eos # (Auto) Baso # (Auto) Abs Immat Gran (auto) Absolute Neuts (auto) Absolute Nucleated RBC Nucleated RBC % VBG pH VBG pCO2 VBG pO2 VBG HCO3 O2 Delivery Device O2 Liters/Min FiO2 Sodium 132 L Potassium 3.5 Chloride 94 L Carbon Dioxide 28 Anion Gap 10 BUN 34 H Creatinine 1.01 H Estim Creat Clear Calc 46 Estimated GFR 53 L Glucose 471 H POC Capillary Glucose > 500 H* 464 H Hemoglobin A1c Lactic Acid Calcium 8.3 L Phosphorus Magnesium Total Bilirubin AST ALT Alkaline Phosphatase Total Protein Albumin Beta-Hydroxybutyrate/Acetoacetate TSH (Reflex) Urine Color Urine Appearance Urine pH Ur Specific [place] Urine Protein Urine Glucose (UA) Urine Ketones Ur Blood (Man) Urine Nitrate Urine Bilirubin Urine Urobilinogen Leukocyte Esterase Rfl Nasal MRSA (PCR) Influenza A (RT-PCR) Influenza B (RT-PCR) RSV (RT-PCR) SARS-CoV-2 RNA (RT-PCR) 02/13/25 02/14/25 02/14/25 23:12 00:20 01:12 WBC RBC Hgb Hct MCV MCH MCHC RDW Plt Count MPV Immature Gran % (Auto) Neut % (Auto) Lymph % (Auto) [place] % (Auto) Eos % (Auto) Baso % (Auto) Lymph # (Auto) [place] # (Auto) Eos # (Auto) Baso # (Auto) Abs Immat Gran (auto) Absolute Neuts (auto) Absolute Nucleated RBC Nucleated RBC % VBG pH VBG pCO2 VBG pO2 VBG HCO3 O2 Delivery Device O2 Liters/Min FiO2 Sodium Potassium Chloride Carbon Dioxide Anion Gap BUN Creatinine Estim Creat Clear Calc Estimated GFR Glucose POC Capillary Glucose 348 H 239 H 154 H Hemoglobin A1c Lactic Acid Calcium Phosphorus Magnesium Total Bilirubin AST ALT Alkaline Phosphatase Total Protein Albumin Beta-Hydroxybutyrate/Acetoacetate TSH (Reflex) Urine Color Urine Appearance Urine pH Ur Specific [place] Urine Protein Urine Glucose (UA) Urine Ketones Ur Blood (Man) Urine Nitrate Urine Bilirubin Urine Urobilinogen Leukocyte Esterase Rfl Nasal MRSA (PCR) Influenza A (RT-PCR) Influenza B (RT-PCR) RSV (RT-PCR) SARS-CoV-2 RNA (RT-PCR) 02/14/25 02/14/25 02/14/25 02:17 03:48 07:39 WBC 8.0 RBC 4.36 Hgb 12.3 Hct 36.9 L MCV 84.6 MCH 28.2 MCHC 33.3 RDW 13.4 Plt Count 179 MPV 12.0 H Immature Gran % (Auto) 0.9 H Neut % (Auto) 60.8 Lymph % (Auto) 18.1 L [place] % (Auto) 17.8 H Eos % (Auto) 1.9 Baso % (Auto) 0.5 Lymph # (Auto) 1.44 [place] # (Auto) 1.4 H Eos # (Auto) 0.2 Baso # (Auto) 0.0 Abs Immat Gran (auto) 0.07 H Absolute Neuts (auto) 4.8 Absolute Nucleated RBC 0.000 Nucleated RBC % 0.0 VBG pH VBG pCO2 VBG pO2 VBG HCO3 O2 Delivery Device O2 Liters/Min FiO2 Sodium 135 L Potassium 3.6 Chloride 101 Carbon Dioxide 29 Anion Gap 5 BUN 30 H Creatinine 0.92 Estim Creat Clear Calc 50 Estimated GFR 59 Glucose 128 H POC Capillary Glucose 122 H Hemoglobin A1c Lactic Acid Calcium 8.0 L Phosphorus Magnesium Total Bilirubin AST ALT Alkaline Phosphatase Total Protein Albumin Beta-Hydroxybutyrate/Acetoacetate TSH (Reflex) 3.490 Urine Color Urine Appearance Urine pH Ur Specific [place] Urine Protein Urine Glucose (UA) Urine Ketones Ur Blood (Man) Urine Nitrate Urine Bilirubin Urine Urobilinogen Leukocyte Esterase Rfl Nasal MRSA (PCR) Influenza A (RT-PCR) Negative Influenza B (RT-PCR) Negative RSV (RT-PCR) Negative SARS-CoV-2 RNA (RT-PCR) Negative 02/14/25 07:52 WBC RBC Hgb Hct MCV MCH MCHC RDW Plt Count MPV Immature Gran % (Auto) Neut % (Auto) Lymph % (Auto) [place] % (Auto) Eos % (Auto) Baso % (Auto) Lymph # (Auto) [place] # (Auto) Eos # (Auto) Baso # (Auto) Abs Immat Gran (auto) Absolute Neuts (auto) Absolute Nucleated RBC Nucleated RBC % VBG pH VBG pCO2 VBG pO2 VBG HCO3 O2 Delivery Device O2 Liters/Min FiO2 Sodium Potassium Chloride Carbon Dioxide Anion Gap BUN Creatinine Estim Creat Clear Calc Estimated GFR Glucose POC Capillary Glucose 265 H Hemoglobin A1c Lactic Acid Calcium Phosphorus Magnesium Total Bilirubin AST ALT Alkaline Phosphatase Total Protein Albumin Beta-Hydroxybutyrate/Acetoacetate TSH (Reflex) Urine Color Urine Appearance Urine pH Ur Specific [place] Urine Protein Urine Glucose (UA) Urine Ketones Ur Blood (Man) Urine Nitrate Urine Bilirubin Urine Urobilinogen Leukocyte Esterase Rfl Nasal MRSA (PCR) Influenza A (RT-PCR) Influenza B (RT-PCR) RSV (RT-PCR) SARS-CoV-2 RNA (RT-PCR) Quality VTE Prophylaxis VTE prophylaxis: pharmacologic ordered (Continue home Eliquis)
[2025-02-14 10:17] LABS: NT Pro B Type Natriuretic Pept 3290 pg/mL (19.9-100)
[2025-02-14] MEDS: POTASSIUM CHLORIDE 20 MEQ ER TABLET 40 MEQ PO (10:30)
[2025-02-14] MEDS: LOSARTAN POTASSIUM 100 MG TABLET PO (10:31)
--- NOTE | 2025-02-14 11:27 | PC.NURSE ---
This patient, Gaby Carey, was transferred to [facility] on 02/14/25 at 1107. Personal belongings sent with patient. Report given to RN. Appropriate documentation sent with patient.
[2025-02-14] MEDS: PERFLUTREN LIPID MICROSPHERES 1.5 ML VIAL DILUTED TO 10 ML TOTAL VOLUME IV PUSH (13:17)
--- NOTE | 2025-02-14 13:18 | IVDEFINITY ---
Prior to administration of IV Definity the patient was educated on the risks and benefits of the imaging enhancing agent including potential adverse side effects. The patient verbalized understanding. Allergies were verified. No exclusion criteria were identified and at least one of the following inclusion criteria were met: 1) physician request, 2) patient technically difficult to image (per the [place] [employer] guidelines of two or more segments not discernable within the apical view), or 3) questionable left ventricular function. ?
[2025-02-15] VITALS: BP 107/55; PULSE 78; RESP 18; TEMP 36.3; O2SAT 95
[2025-02-15 08:24] LABS: Hematocrit 37.7 % (37.0-47.0); Hemoglobin 12.4 g/dL (12.0-15.0); Mean Corpuscular HGB Conc 32.9 g/dl (32-36); Mean Corpuscular Hemoglobin 28.6 pg (26-34); Mean Corpuscular Volume 86.9 fl (80-100); Platelet Count Result 152 k/mm3 (150-375); Red Blood Count 4.34 M/mm3 (4.2-5.4); White Blood Count 7.3 K/mm3 (4.5-10.0)
[2025-02-15 09:00] VITALS: PULSE 74
[2025-02-15] MEDS: LOSARTAN POTASSIUM 100 MG TABLET PO (09:00)
[2025-02-15] MEDS: APIXABAN 5 MG TABLET PO ×2 (09:00→21:38)
[2025-02-15] MEDS: METOPROLOL TARTRATE 50 MG TAB PO ×2 (09:00→21:37)
[2025-02-15] MEDS: ESCITALOPRAM OXALATE 10 MG TABLET PO (09:00)
[2025-02-15] MEDS: INSULIN ASPART (*BKC) 100 UNITS/ML SUB-Q ×4 (09:01→17:18)
[2025-02-15 09:10] LABS: Albumin Level 3.4 g/dL (3.5-5.1); Anion Gap 7 mmol/L (4-12); Blood Urea Nitrogen 23 mg/dL (7-17); Calcium 8.1 mg/dL (8.4-10.2); Carbon Dioxide 27 mmol/L (22-30); Chloride 96 mmol/L (98-107); Estimated CRCL calculation 49 ml/min; Estimated Glomerular Filt Rate 56; Glucose 328 mg/dL (65-110); Magnesium 2.2 mg/dL (1.6-2.3); Potassium 4.3 mmol/L (3.4-5.0); Sodium 130 mmol/L (137-145)
[2025-02-15 09:45] VITALS: O2SAT 95
[2025-02-15] MEDS: metFORMIN HCL 250 MG TABLET PO ×2 (09:45→17:16)
[2025-02-15] MEDS: INSULIN GLARGINE (*BKC) 100 UNITS/ML 18 UNITS SUB-Q (12:34)
--- NOTE | 2025-02-15 13:25 | PM.IMPN2 ---
Assessment and Plan Assessment and Plan (1) Hyperosmolar hyperglycemic state (HHS): Code(s): E11.00 - Type 2 diabetes mellitus with hyperosmolarity without nonketotic hyperglycemic-hyperosmolar coma (NKHHC) Status: Acute Assessment and Plan: Improved. Patient off insulin infusion. Transition to subcutaneous insulin Consistent carbohydrate diet Diabetes take educator and dietitian consult (2) Diabetes mellitus, new onset: Code(s): E11.9 - Type 2 diabetes mellitus without complications Status: Acute Assessment and Plan: A1c >14%. The patient's blood glucose was reviewed on 02/15 Glucose remains poorly controlled. Continue AccuCheks covering with sliding scale. Hypoglycemia protocol available as needed. Advance Lantus. Add meal time Novolog. Add metformin Diab educator and mobile game engineer consulted (3) Pseudohyponatremia: Code(s): R79.89 - Other specified abnormal findings of blood chemistry Status: Acute Assessment and Plan: Secondary to hyperglycemia. Sodium down to 130 but glucose in the 300's. Continue to improve glycemic control (4) Acute kidney injury: Code(s): N17.9 - Acute kidney failure, unspecified Status: Acute Assessment and Plan: Creatinine improved with IV fluids to normal range Resolved. Hold further IV fluids (5) Abnormal chest x-ray: Code(s): R93.89 - Abnormal findings on diagnostic imaging of other specified body structures Status: Acute Assessment and Plan: CXR showing patchy infiltrates bilaterally. CXR in September showing mid and lower lung opacities and a 8mm RUL lung nodules. Pro-BNP 3290. Viral panel negative. Echo showing EF 55-60%, diastolic dysfunction, moderate , moderate pulm HTN. Patient on room air. No hx of JOSÉ MIGUEL IV fluids stopped. Check CT chest. Check apneaLink. On Bumex at home so will resume. (6) Atrial fibrillation with normal ventricular rate: Code(s): I48.91 - Unspecified atrial fibrillation Status: Acute Assessment and Plan: Patieint with AFib. TSH normal Continue beta-caty and Eliquis Plan Disp - Consult PT OT DVT prophylaxis -Eliquis Code Status - Full Code Subjective Date/time seen: 02/15/25 13:25 Interval history: 79yo female with MO, AFib, CHF, HTN, DM and diabetic peripheral neuropathy who presented to the ER from a nursing facility via EMS due to weakness, dehydration and worsening toe wound. Slept well. No CP or SOB. Walks with a walker at the facility. Up to bedside commode. No hx of JOSÉ MIGUEL Exam Narrative: AF 97.4 107/55 74 18 95% ra Gen - NARD Chest - lungs clear anteriorly. CV - RRR S1/S2 Abd - Soft, obese, NT Ext - No pedal edema. 2+ DP pulses bilaterally. Psych - Nml mood and affect Skin - Warm and dry. tip of right 2nd toe with blood blister Objective Data Vital Signs Vital Signs: Vital Signs - 24 hr 02/14/25 16:00 02/14/25 20:00 02/14/25 21:13 Temperature 97.1 F L Pulse Rate 74 74 Respiratory Rate 18 Blood Pressure 91/45 L Pulse Oximetry 93 Oxygen Delivery Room Air 02/15/25 00:00 02/15/25 09:00 Temperature 97.4 F L Pulse Rate 78 74 Respiratory Rate 18 Blood Pressure 107/55 L Pulse Oximetry 95 Oxygen Delivery Intake/Output Intake/Output: Intake & Output 02/12/25 02/13/25 02/14/25 02/15/25 23:59 23:59 23:59 23:59 Intake Total 2112.0 1160.2 1000 Output Total 1750 200 Balance 2112.0 -589.8 800 Meds/Results Medications: Active Medications Generic Name Dose Route Start Last Admin Trade Name Freq PRN Reason Stop Dose Admin Apixaban 5 mg 02/13/25 22:45 02/15/25 09:00 Apixaban 5 Mg Tablet PO 5 mg Q12HR ERNESTO Administration Dextrose 12.5 gm 02/13/25 18:04 Dextrose 50% 25 Gm/50 Ml Syringe IV PUSH PRN PRN Hypoglycemia Protocol Escitalopram Oxalate 10 mg 02/14/25 09:00 02/15/25 09:00 Escitalopram Oxalate 10 Mg Tablet PO 10 mg DAILY ERNESTO Administration Glucagon 1 mg 02/13/25 18:04 Glucagon For Inj 1 Mg Vial IM PRN PRN Hypoglycemia Protocol Glucose 15 gm 02/13/25 18:04 Glucose Oral Gel 15 Gm Of Glucse In 37.5 Gm Tube PO PRN PRN Hypoglycemia Protocol Hydroxyzine HCl 10 mg 02/13/25 22:45 02/14/25 21:13 Hydroxyzine Hcl 10 Mg Tablet PO 10 mg HS ERNESTO Administration Dextrose 1,000 mls @ 100 mls/hr 02/13/25 18:04 Dextrose 5% 1,000 Ml IVPB PRN PRN Hypoglycemia Protocol Insulin Aspart 3 - 6 units 02/14/25 08:00 02/15/25 12:31 Insulin Aspart (*Bkc) 100 Units/Ml SUB-Q 6 units TIDWM ERNESTO Administration Protocol Insulin Glargine 18 units 02/15/25 12:00 02/15/25 12:34 Insulin Glargine (*Bkc) 100 Units/Ml SUB-Q 18 units DAILY ERNESTO Administration Losartan Potassium 100 mg 02/14/25 09:00 02/15/25 09:00 Losartan Potassium 100 Mg Tablet PO 100 mg DAILY ERNESTO Administration Metformin HCl 250 mg 02/15/25 08:15 02/15/25 09:45 Metformin Hcl 250 Mg Tablet PO 250 mg BIDWM ERNESTO Administration Metoprolol Tartrate 50 mg 02/13/25 22:40 02/15/25 09:00 Metoprolol Tartrate 50 Mg Tab PO 50 mg Q12HR ERNESTO Administration Nifedipine 60 mg 02/14/25 09:00 02/15/25 08:59 Nifedipine 30 Mg Tab.Er.24 PO 60 mg DAILY ERNESTO Administration Radiology Results: ITS Impressions Foot X-Ray 02/13/25 16:20 Impression: No acute fracture or malalignment. Chest X-Ray 02/13/25 21:12 IMPRESSION: There are patchy infiltrates bilaterally. Labs Labs: Laboratory Results - last 24 hr 02/14/25 02/15/25 02/15/25 16:23 07:49 08:18 WBC 7.3 RBC 4.34 Hgb 12.4 Hct 37.7 MCV 86.9 MCH 28.6 MCHC 32.9 RDW 14.0 Plt Count 152 MPV 11.6 H Sodium 130 L Potassium 4.3 Chloride 96 L Carbon Dioxide 27 Anion Gap 7 BUN 23 H Creatinine 0.95 Estim Creat Clear Calc 49 Estimated GFR 56 L Glucose 328 H POC Capillary Glucose 376 H 330 H Calcium 8.1 L Phosphorus 2.8 Magnesium 2.2 Albumin 3.4 L 02/15/25 10:53 WBC RBC Hgb Hct MCV MCH MCHC RDW Plt Count MPV Sodium Potassium Chloride Carbon Dioxide Anion Gap BUN Creatinine Estim Creat Clear Calc Estimated GFR Glucose POC Capillary Glucose 390 H Calcium Phosphorus Magnesium Albumin
[2025-02-15 16:00] VITALS: BP 118/67; PULSE 70; RESP 19; TEMP 36; O2SAT 97
[2025-02-15] MEDS: INSULIN ASPART (*BKC) 100 UNITS/ML 8 UNITS SUB-Q (19:19)
[2025-02-15 20:05] VITALS: BP 107/56; PULSE 78; RESP 18; TEMP 35.7; O2SAT 98
[2025-02-15 21:37] VITALS: PULSE 71
[2025-02-16 04:50] VITALS: BP 105/49; PULSE 73; RESP 20; TEMP 36.1; O2SAT 95
[2025-02-16 06:42] LABS: Hematocrit 37.6 % (37.0-47.0); Hemoglobin 11.9 g/dL (12.0-15.0); Immature Granulocyte Percent A 0.9 % (0-0.5); Lymphocytes Absolute Auto 1.28 K/mm3 (0.9-3.2); Mean Corpuscular HGB Conc 31.6 g/dl (32-36); Mean Corpuscular Hemoglobin 28.1 pg (26-34); Mean Corpuscular Volume 88.7 fl (80-100); Nucleated Red Blood Cells Absolute Auto 0.000 K/mm3 (0.0-0.012); Nucleated Red Blood Cells Perc 0.0 % (0.0-0.2); Platelet Count Result 145 k/mm3 (150-375); Red Blood Count 4.24 M/mm3 (4.2-5.4); White Blood Count 7.6 K/mm3 (4.5-10.0)
[2025-02-16 07:06] LABS: Albumin Level 3.1 g/dL (3.5-5.1); Anion Gap 6 mmol/L (4-12); Blood Urea Nitrogen 22 mg/dL (7-17); Calcium 8.3 mg/dL (8.4-10.2); Carbon Dioxide 26 mmol/L (22-30); Chloride 100 mmol/L (98-107); Estimated CRCL calculation 55 ml/min; Estimated Glomerular Filt Rate > 60; Glucose 202 mg/dL (65-110); Magnesium 2.2 mg/dL (1.6-2.3); Potassium 3.9 mmol/L (3.4-5.0); Sodium 132 mmol/L (137-145)
[2025-02-16] MEDS: ESCITALOPRAM OXALATE 10 MG TABLET PO (09:04)
[2025-02-16] MEDS: METOPROLOL TARTRATE 50 MG TAB PO ×2 (09:05→21:03)
[2025-02-16] MEDS: APIXABAN 5 MG TABLET PO ×2 (09:05→21:03)
[2025-02-16] MEDS: LOSARTAN POTASSIUM 100 MG TABLET PO (09:05)
[2025-02-16] MEDS: metFORMIN HCL 250 MG TABLET PO ×2 (09:09→17:18)
[2025-02-16] MEDS: INSULIN ASPART (*BKC) 100 UNITS/ML SUB-Q ×6 (09:09→17:18)
[2025-02-16 11:30] VITALS: BMI 40.1
[2025-02-16 13:48] VITALS: BP 117/50; PULSE 65; RESP 19; TEMP 35.7; O2SAT 100
--- NOTE | 2025-02-16 13:49 | PM.DS ---
DS: Admitting Diagnosis Discharge Date 02/16/25 Admitting Diagnosis Dehydrated, toe wound DS: Discharge Diagnosis Discharge Diagnosis (1) Hyperosmolar hyperglycemic state (HHS): Code(s): E11.00 - Type 2 diabetes mellitus with hyperosmolarity without nonketotic hyperglycemic-hyperosmolar coma (NKHHC) Status: Acute (2) Diabetes mellitus, new onset: Code(s): E11.9 - Type 2 diabetes mellitus without complications Status: Acute (3) Pseudohyponatremia: Code(s): R79.89 - Other specified abnormal findings of blood chemistry Status: Acute (4) Acute kidney injury: Code(s): N17.9 - Acute kidney failure, unspecified Status: Acute (5) Abnormal chest x-ray: Code(s): R93.89 - Abnormal findings on diagnostic imaging of other specified body structures Status: Acute (6) Atrial fibrillation with normal ventricular rate: Code(s): I48.91 - Unspecified atrial fibrillation Status: Acute (7) Thyroid nodule: Code(s): E04.1 - Nontoxic single thyroid nodule Status: Acute (8) ILD (interstitial lung disease): Code(s): J84.9 - Interstitial pulmonary disease, unspecified Status: Acute DS: Summary Hospital Course Reason for hospitalization: 79yo female with MO, AFib, CHF, HTN, DM and diabetic peripheral neuropathy who presented to the ER from a nursing facility via EMS due to weakness, dehydration and worsening toe wound. Please see H&P for details. Hospital Course: The following medical conditions were addressed during her hospital course: (1) Hyperosmolar hyperglycemic state (HHS): Patient was hemodynamically stable on admission. RSV, COVID and influenza PCR were negative. CBC was normal. Venous pH was 7.48 with venous pCO2 of 37. Her sodium is 127 with BUN of 41, creatinine 1.2, and glucose of 715. LFTs were normal. Beta hydroxybutyrate was 0.5. TSH was normal. Patient was admitted to the ICU on insulin drip and IV fluids. Glucose improved as expected. Symptoms resolved. para educator and dietitian consulted (2) Diabetes mellitus, new onset: A1c >14%. Patient was transitioned to AccuCheks covering with sliding scale. Hypoglycemia protocol available as needed. Glucose was still poorly controlled so Lantus advanced and added meal time Novolog. Metformin also added. Glucose 202 this morning. (3) Pseudohyponatremia: Hyponatremia secondary to hyperglycemia. Sodium improved 132. (4) Acute kidney injury: Cr was 1.2 on admission but normalized with IV fluids. Resolved. (5) Abnormal chest x-ray: CXR showing patchy infiltrates bilaterally. CXR in September showing mid and lower lung opacities and a 8mm RUL lung nodules. Pro-BNP 3290. Viral panel negative. Echo showing EF 55-60%, diastolic dysfunction, moderate , moderate pulm HTN. Patient on room air. No hx of JOSÉ MIGUEL. Apnea link essentially normal. CT chest showing patchy ground glass opacities with bilateral interlobular septal thickening compatible with interstitial lung disease, cardiomegaly and an enlarged thyroid gland with 1.7 cm hypodense left thyroid nodule. She was on Bumex at home so we resumed this. Will have her followup with Pulmonary as outpatient. Also will need thyroid US. (6) Atrial fibrillation with normal ventricular rate: Patient with AFib. TSH normal We continued beta-caty and Eliquis Patient overall did well and was able to be discharged on 02/16/2025. Discharge instructions discussed including side effects of medications. All questions were answered. Status at Discharge Cognitive/behavioral status at discharge: Stable Time Spent with Patient Time attestation: Total time spent providing and/or coordinating discharge services: 35 minutes Time spent: Greater than 30 minutes Exam Narrative: AF 96.2 117/50 65 19 100% ra Gen - NARD Chest - CTA bilateally anteriorly. CV - RRR S1/S2 Abd - Soft, obese, NT Ext - trace pedal edema Psych - Nml mood and affect Skin - Warm and dry. Dry, scaly macules upper back area DS: Data Data Completed and Pending Labs on day of discharge: Labs from last 24 hours 02/16/25 02/16/25 02/16/25 11:38 07:13 06:21 WBC 7.6 RBC 4.24 Hgb 11.9 L Hct 37.6 MCV 88.7 MCH 28.1 MCHC 31.6 L RDW 13.9 Plt Count 145 L MPV 11.9 H Immature Gran % (Auto) 0.9 H Neut % (Auto) 65.6 Lymph % (Auto) 16.8 L [place] % (Auto) 13.0 H Eos % (Auto) 3.0 Baso % (Auto) 0.7 Lymph # (Auto) 1.28 [place] # (Auto) 1.0 H Eos # (Auto) 0.2 Baso # (Auto) 0.1 Abs Immat Gran (auto) 0.07 H Absolute Neuts (auto) 5.0 Absolute Nucleated RBC 0.000 Nucleated RBC % 0.0 Sodium 132 L Potassium 3.9 Chloride 100 Carbon Dioxide 26 Anion Gap 6 BUN 22 H Creatinine 0.84 Estim Creat Clear Calc 55 Estimated GFR > 60 Glucose 202 H POC Capillary Glucose 241 H 236 H Calcium 8.3 L Phosphorus 3.0 Magnesium 2.2 Albumin 3.1 L 02/15/25 02/15/25 02/15/25 20:12 18:48 16:14 WBC RBC Hgb Hct MCV MCH MCHC RDW Plt Count MPV Immature Gran % (Auto) Neut % (Auto) Lymph % (Auto) [place] % (Auto) Eos % (Auto) Baso % (Auto) Lymph # (Auto) [place] # (Auto) Eos # (Auto) Baso # (Auto) Abs Immat Gran (auto) Absolute Neuts (auto) Absolute Nucleated RBC Nucleated RBC % Sodium Potassium Chloride Carbon Dioxide Anion Gap BUN Creatinine Estim Creat Clear Calc Estimated GFR Glucose POC Capillary Glucose 306 H 372 H 405 H Calcium Phosphorus Magnesium Albumin Discharge Plan Discharge Attending physician on discharge: Weston Muller Discharging Clinician: Weston Muller Anticipated Discharge Date/Time: 02/16/25 14:03 Patient Disposition: [place] [facility] Activity: as tolerated Diet: heart healthy and diabetic Discharge Instructions: Please check glucose before meals and before bed. Record and bring into your doctor for review. Take precautions to avoid falls. Rise slowly from a lying or sitting position. Pause before standing or walking. Contact your doctor or call 911 and come to the Emergency Room if you have fevers, lightheadedness with standing or other worrisome symptoms. Continue routine wound care to the right 2nd toe wound Avoid NSAIDs (ibuprofen, naproxen, Aleve). Tylenol is safe to take. Follow-up with your primary care provider in 1-2 weeks. Please call for appointment. Follow-up with Political Advisor in 2-4 weeks for some scarring noted on your chest CT scan. Thank you for using [facility] for your health care needs. Patient Instructions: Antibiotic Form, Foot Care for People with Diabetes (GEN), Hyperosmolar Hyperglycemic State (GEN), Managing Diabetes During Sick Days (GEN), Diabetic Hyperglycemia (GEN), Hemoglobin A1c (GEN), Diabetes and Your Mouth (GEN), Diabetes and Nutrition (GEN), Diabetes and Exercise (GEN) Patient Language: Maori Stand Alone Forms: General Discharge Information Follow-up/Referrals: Tita,Som Otero DO [Primary Care Provider, Unknown] - Call for Appointment Socrates Nava MD [Physician, Pulmonology] - Call for Appointment Referral Note: Referral for ILD workup Discharge Medications: New (DME) blood-glucose meter [OneTouch Verio Flex meter] Mis Qty: 1 0RF Rx Instructions: Starter Kit. May substitute to in-stock and/or covered by insurance meter. Use As Directed (DME) OneTouch Verio test strips Strip Qty: 1 0RF Rx Instructions: May substitute to in-stock and/or covered by insurance strips. Use As Directed (DME) Ketostix Strip Qty: 1 0RF Rx Instructions: As Directed (DME) pen needle, diabetic 32 gauge x 5/32 Needle Qty: 1 0RF Rx Instructions: As Directed (DME) lancets [OneTouch Delica Plus Lancet] 30 gauge misc Qty: 1 0RF Rx Instructions: May substitute to in-stock and/or covered by insurance lancets. Use As Directed insulin aspart U-100 100 unit/mL (3 mL) insulin pen 5 unit subcut TID Qty: 15 0RF insulin glargine [Lantus Solostar U-100 Insulin] 100 unit/mL (3 mL) insulin pen 21 unit subcut HS Qty: 15 0RF metformin 500 mg tablet 250 mg PO BIDWMEAL Qty: 60 0RF Continued Eliquis 5 mg tablet 5 mg PO Q12H metoprolol tartrate 50 mg tablet 50 mg PO Q12H losartan 100 mg tablet 100 mg PO DAILY bumetanide 2 mg tablet 2 mg PO BID Rx Instructions: 0800 and 1200 per patient acetaminophen 325 mg tablet 325 mg PO Q4H ergocalciferol (vitamin D2) 1,250 mcg (50,000 unit) capsule 1,250 mcg PO WEEKLY hydroxyzine HCl 10 mg tablet 10 mg PO HS nifedipine 60 mg tablet extended release 60 mg PO DAILY desmopressin 0.1 mg tablet 0.1 mg PO DAILY escitalopram oxalate 10 mg tablet 10 mg PO DAILY Other Ambulatory Orders: US thyroid (Routine) Timeframe: 3 Weeks Location: Determined by Patient Ordered By: Weston Muller Date of admission: 02/13/25 20:16 Primary Care Provider: TitaSom Admitting Provider: Adela Samayoa Attending physician on admission: Adela Samayoa Condition: Stable Hospitalist MIPS Heart Failure (Exclusion) Patient has history of Heart Transplant or Left Ventricular Assistive Device?: No IF YES, STOP HERE Heart Failure (Qualifier) Patient has current or prior documentation of LVEF less than or equal to 40%, or mod/servere depressed LVSF?: No IF NO, STOP HERE
--- NOTE | 2025-02-16 14:24 | PM.IMPN2 ---
Assessment and Plan Assessment and Plan (1) Hyperosmolar hyperglycemic state (HHS): Code(s): E11.00 - Type 2 diabetes mellitus with hyperosmolarity without nonketotic hyperglycemic-hyperosmolar coma (NKHHC) Status: Acute Assessment and Plan: Improved. Patient off insulin infusion. Transition to subcutaneous insulin Consistent carbohydrate diet Diabetes take educator and dietitian consult (2) Diabetes mellitus, new onset: Code(s): E11.9 - Type 2 diabetes mellitus without complications Status: Acute Assessment and Plan: A1c >14%. The patient's blood glucose was reviewed on 02/16 Glucose remains poorly controlled. Continue AccuCheks covering with sliding scale. Hypoglycemia protocol available as needed. Advance Lantus again. Continue Novolog at mealtimes and continue metformin Diab educator and insole tack puller hand consulted (3) Pseudohyponatremia: Code(s): R79.89 - Other specified abnormal findings of blood chemistry Status: Acute Assessment and Plan: Secondary to hyperglycemia. Sodium better at 132 Continue to improve glycemic control (4) Acute kidney injury: Code(s): N17.9 - Acute kidney failure, unspecified Status: Acute Assessment and Plan: Creatinine improved with IV fluids to normal range Resolved. Hold further IV fluids (5) Abnormal chest x-ray: Code(s): R93.89 - Abnormal findings on diagnostic imaging of other specified body structures Status: Acute Assessment and Plan: CXR showing patchy infiltrates bilaterally. CXR in September showing mid and lower lung opacities and a 8mm RUL lung nodules. Pro-BNP 3290. Viral panel negative. Echo showing EF 55-60%, diastolic dysfunction, moderate , moderate pulm HTN. Patient on room air. No hx of JOSÉ MIGUEL Apnea link essentially normal. CT chest showing patchy ground glass opacities with bilateral interlobular septal thickening compatible with interstitial lung disease, cardiomegaly and an enlarged thyroid gland with 1.7 cm hypodense left thyroid nodule. She was on Bumex at home so we resumed this. Will have her followup with Pulmonary as outpatient. Also will need thyroid US. (6) Atrial fibrillation with normal ventricular rate: Code(s): I48.91 - Unspecified atrial fibrillation Status: Acute Assessment and Plan: Patieint with AFib. TSH normal Continue beta-caty and Eliquis (7) Thyroid nodule: Code(s): E04.1 - Nontoxic single thyroid nodule Status: Acute Assessment and Plan: As above Outpatient evaluation (8) ILD (interstitial lung disease): Code(s): J84.9 - Interstitial pulmonary disease, unspecified Status: Acute Assessment and Plan: outpatient evaluation with pulmonary Plan Disp - Consult PT OT DVT prophylaxis -Eliquis Code Status - Full Code Subjective Date/time seen: 02/16/25 14:24 Interval history: 79yo female with MO, AFib, CHF, HTN, DM and diabetic peripheral neuropathy who presented to the ER from a nursing facility via EMS due to weakness, dehydration and worsening toe wound. No problems overnight. No CP or SOB. No n/v. +epistaxis earlier but better. Exam Narrative: AF 96.2 117/50 65 19 100% ra Gen - NARD Chest - CTA bilateally anteriorly. CV - RRR S1/S2 Abd - Soft, obese, NT Ext - trace pedal edema Psych - Nml mood and affect Skin - Warm and dry. Dry, scaly macules upper back area Objective Data Vital Signs Vital Signs: Vital Signs - 24 hr 02/15/25 16:00 02/15/25 20:00 02/15/25 20:05 Temperature 96.8 F L 96.3 F L Pulse Rate 70 78 Respiratory Rate 19 18 Blood Pressure 118/67 107/56 L Pulse Oximetry 97 98 Oxygen Delivery Room Air 02/15/25 21:37 02/16/25 04:50 02/16/25 08:00 Temperature 96.9 F L Pulse Rate 71 73 Respiratory Rate 20 Blood Pressure 105/49 L Pulse Oximetry 95 Oxygen Delivery Room Air 02/16/25 13:48 Temperature 96.2 F L Pulse Rate 65 Respiratory Rate 19 Blood Pressure 117/50 L Pulse Oximetry 100 Oxygen Delivery Intake/Output Intake/Output: Intake & Output 02/13/25 02/14/25 02/15/25 02/16/25 23:59 23:59 23:59 23:59 Intake Total 2112.0 1160.2 1150 1300 Output Total 1750 400 450 Balance 2112.0 -589.8 750 850 Meds/Results Medications: Active Medications Generic Name Dose Route Start Last Admin Trade Name Freq PRN Reason Stop Dose Admin Apixaban 5 mg 02/13/25 22:45 02/16/25 09:05 Apixaban 5 Mg Tablet PO 5 mg Q12HR ERNESTO Administration Bumetanide 2 mg 02/16/25 08:00 Bumetanide 1 Mg Tablet PO 0800,1200 ERNESTO Dextrose 12.5 gm 02/13/25 18:04 Dextrose 50% 25 Gm/50 Ml Syringe IV PUSH PRN PRN Hypoglycemia Protocol Escitalopram Oxalate 10 mg 02/14/25 09:00 02/16/25 09:04 Escitalopram Oxalate 10 Mg Tablet PO 10 mg DAILY ERNESTO Administration Glucagon 1 mg 02/13/25 18:04 Glucagon For Inj 1 Mg Vial IM PRN PRN Hypoglycemia Protocol Glucose 15 gm 02/13/25 18:04 Glucose Oral Gel 15 Gm Of Glucse In 37.5 Gm Tube PO PRN PRN Hypoglycemia Protocol Hydroxyzine HCl 10 mg 02/13/25 22:45 02/15/25 21:38 Hydroxyzine Hcl 10 Mg Tablet PO 10 mg HS ERNESTO Administration Dextrose 1,000 mls @ 100 mls/hr 02/13/25 18:04 Dextrose 5% 1,000 Ml IVPB PRN PRN Hypoglycemia Protocol Insulin Aspart 3 - 6 units 02/14/25 08:00 02/16/25 13:36 Insulin Aspart (*Bkc) 100 Units/Ml SUB-Q 3 units TIDWM ERNESTO Administration Protocol Insulin Aspart 5 units 02/15/25 17:00 02/16/25 13:36 Insulin Aspart (*Bkc) 100 Units/Ml 0.05 units/kg (5 units) 5 units SUB-Q Administration TIDWM ERNESTO Insulin Aspart 1 - 3 units 02/16/25 21:00 Insulin Aspart (*Bkc) 100 Units/Ml SUB-Q HS [facility] Protocol Insulin Glargine 21 units 02/16/25 18:00 Insulin Glargine (*Bkc) 100 Units/Ml SUB-Q 1800 ERNESTO Losartan Potassium 100 mg 02/14/25 09:00 02/16/25 09:05 Losartan Potassium 100 Mg Tablet PO 100 mg DAILY ERNESTO Administration Metformin HCl 250 mg 02/15/25 08:15 02/16/25 09:09 Metformin Hcl 250 Mg Tablet PO 250 mg BIDWM ERNESTO Administration Metoprolol Tartrate 50 mg 02/13/25 22:40 02/16/25 09:05 Metoprolol Tartrate 50 Mg Tab PO 50 mg Q12HR ERNESTO Administration Nifedipine 60 mg 02/14/25 09:00 02/16/25 09:05 Nifedipine 30 Mg Tab.Er.24 PO 60 mg DAILY ERNESTO Administration Radiology Results: ITS Impressions Foot X-Ray 02/13/25 16:20 Impression: No acute fracture or malalignment. Chest X-Ray 02/13/25 21:12 IMPRESSION: There are patchy infiltrates bilaterally. Chest CT 02/16/25 13:29 IMPRESSION: 1. Patchy groundglass opacities with bilateral interlobular septal thickening compatible with interstitial lung disease; correlate with clinical history and prior imaging for stability or progression. 2: Cardiomegaly. 3: Enlarged thyroid gland with 1.7 cm hypodense left thyroid nodule. Recommend thyroid ultrasound for further characterization. Labs Labs: Laboratory Results - last 24 hr 02/15/25 02/15/25 02/15/25 16:14 18:48 20:12 WBC RBC Hgb Hct MCV MCH MCHC RDW Plt Count MPV Immature Gran % (Auto) Neut % (Auto) Lymph % (Auto) [place] % (Auto) Eos % (Auto) Baso % (Auto) Lymph # (Auto) [place] # (Auto) Eos # (Auto) Baso # (Auto) Abs Immat Gran (auto) Absolute Neuts (auto) Absolute Nucleated RBC Nucleated RBC % Sodium Potassium Chloride Carbon Dioxide Anion Gap BUN Creatinine Estim Creat Clear Calc Estimated GFR Glucose POC Capillary Glucose 405 H 372 H 306 H Calcium Phosphorus Magnesium Albumin 02/16/25 02/16/25 02/16/25 06:21 07:13 11:38 WBC 7.6 RBC 4.24 Hgb 11.9 L Hct 37.6 MCV 88.7 MCH 28.1 MCHC 31.6 L RDW 13.9 Plt Count 145 L MPV 11.9 H Immature Gran % (Auto) 0.9 H Neut % (Auto) 65.6 Lymph % (Auto) 16.8 L [place] % (Auto) 13.0 H Eos % (Auto) 3.0 Baso % (Auto) 0.7 Lymph # (Auto) 1.28 [place] # (Auto) 1.0 H Eos # (Auto) 0.2 Baso # (Auto) 0.1 Abs Immat Gran (auto) 0.07 H Absolute Neuts (auto) 5.0 Absolute Nucleated RBC 0.000 Nucleated RBC % 0.0 Sodium 132 L Potassium 3.9 Chloride 100 Carbon Dioxide 26 Anion Gap 6 BUN 22 H Creatinine 0.84 Estim Creat Clear Calc 55 Estimated GFR > 60 Glucose 202 H POC Capillary Glucose 236 H 241 H Calcium 8.3 L Phosphorus 3.0 Magnesium 2.2 Albumin 3.1 L
[2025-02-16] MEDS: INSULIN GLARGINE (*BKC) 100 UNITS/ML 21 UNITS SUB-Q (17:18)
[2025-02-16 20:30] VITALS: BP 129/73; PULSE 65; RESP 16; TEMP 35.7; O2SAT 99
[2025-02-16 21:03] VITALS: PULSE 62
[2025-02-17 05:05] VITALS: BP 139/90; PULSE 73; RESP 16; TEMP 36.1; O2SAT 98
[2025-02-17 09:27] VITALS: PULSE 81
[2025-02-17] MEDS: ESCITALOPRAM OXALATE 10 MG TABLET PO (09:27)
[2025-02-17] MEDS: LOSARTAN POTASSIUM 100 MG TABLET PO (09:27)
[2025-02-17] MEDS: APIXABAN 5 MG TABLET PO ×2 (09:27→21:28)
[2025-02-17] MEDS: METOPROLOL TARTRATE 50 MG TAB PO ×2 (09:27→21:28)
[2025-02-17] MEDS: metFORMIN HCL 250 MG TABLET PO ×2 (09:28→18:42)
[2025-02-17] MEDS: INSULIN ASPART (*BKC) 100 UNITS/ML SUB-Q ×4 (09:28→17:19)
[2025-02-17] MEDS: BUMETANIDE 1 MG TABLET 2 MG PO ×2 (09:30→12:08)
--- NOTE | 2025-02-17 12:46 | PM.IMPN2 ---
Assessment and Plan Assessment and Plan (1) Hyperosmolar hyperglycemic state (HHS): Code(s): E11.00 - Type 2 diabetes mellitus with hyperosmolarity without nonketotic hyperglycemic-hyperosmolar coma (NKHHC) Status: Acute Assessment and Plan: Patient presents with weakness, dehydration and worsening right to infection and found to have elevated glucose to 715. She received a 30 mL/kilos fluid bolus in the ER in still appears intervascular volume depleted. Glucoses did come down into the 600s with IV fluids but hyperglycemia is persisting and subsequently she was admitted to the ICU for hyperosmolar hyperglycemic state. Patient's glucose improved. Patient off insulin infusion. Transition to subcutaneous insulin. Resolved (2) Diabetes mellitus, new onset: Code(s): E11.9 - Type 2 diabetes mellitus without complications Status: Acute Assessment and Plan: A1c >14%. The patient's blood glucose was reviewed on 02/17 Glucose improved overall but remains poorly controlled. Morning glucose 196. Continue AccuCheks covering with sliding scale. Hypoglycemia protocol available as needed. Advance Lantus again. Continue Novolog at mealtimes and continue metformin Diab educator and accounts clerk consulted (3) Pseudohyponatremia: Code(s): R79.89 - Other specified abnormal findings of blood chemistry Status: Acute Assessment and Plan: Secondary to hyperglycemia. Sodium up to 132 Should continue to improve glycemic control (4) Acute kidney injury: Code(s): N17.9 - Acute kidney failure, unspecified Status: Acute Assessment and Plan: Creatinine improved with IV fluids to normal range Resolved. Off IV fluids (5) Abnormal chest x-ray: Code(s): R93.89 - Abnormal findings on diagnostic imaging of other specified body structures Status: Acute Assessment and Plan: CXR showing patchy infiltrates bilaterally. CXR in September showing mid and lower lung opacities and a 8mm RUL lung nodules. Pro-BNP 3290. Viral panel negative. Echo showing EF 55-60%, diastolic dysfunction, moderate , moderate pulm HTN. Patient on room air. No hx of JOSÉ MIGUEL Apnea link essentially normal. CT chest showing patchy ground glass opacities with bilateral interlobular septal thickening compatible with interstitial lung disease, cardiomegaly and an enlarged thyroid gland with 1.7 cm hypodense left thyroid nodule. She was on Bumex at home so we resumed this. Will have her followup with Pulmonary as outpatient. Also will need thyroid US. (6) Atrial fibrillation with normal ventricular rate: Code(s): I48.91 - Unspecified atrial fibrillation Status: Acute Assessment and Plan: Patieint with AFib. TSH normal Continue beta-caty and Eliquis (7) Thyroid nodule: Code(s): E04.1 - Nontoxic single thyroid nodule Status: Acute Assessment and Plan: As above Outpatient evaluation (8) ILD (interstitial lung disease): Code(s): J84.9 - Interstitial pulmonary disease, unspecified Status: Acute Assessment and Plan: outpatient evaluation with pulmonary Plan Disp - Consult PT OT DVT prophylaxis -Eliquis Code Status - Full Code Discharge once the facility can accept her back. Subjective Date/time seen: 02/17/25 12:46 Interval history: 79yo female with MO, AFib, CHF, HTN, DM and diabetic peripheral neuropathy who presented to the ER from a nursing facility via EMS due to weakness, dehydration and worsening toe wound. Slept okay. No CP or SOB. Feels constipated. Eating okay. No n/v Exam Narrative: AF 97.0 139/90 81 16 98% ra Gen - NARD Chest - CTA bilaterally anteriorly. CV - RRR S1/S2 Abd - Soft, obese, NT Ext - trace pedal edema Psych - Nml mood and affect Skin - Warm and dry. Objective Data Vital Signs Vital Signs: Vital Signs - 24 hr 02/16/25 13:48 02/16/25 20:00 02/16/25 20:30 Temperature 96.2 F L 96.2 F L Pulse Rate 65 65 Respiratory Rate 19 16 Blood Pressure 117/50 L 129/73 Pulse Oximetry 100 99 Oxygen Delivery Room Air 02/16/25 21:03 02/17/25 05:05 02/17/25 08:00 Temperature 97 F L Pulse Rate 62 73 Respiratory Rate 16 Blood Pressure 139/90 Pulse Oximetry 98 Oxygen Delivery Room Air 02/17/25 09:27 Temperature Pulse Rate 81 Respiratory Rate Blood Pressure Pulse Oximetry Oxygen Delivery Intake/Output Intake/Output: Intake & Output 02/14/25 02/15/25 02/16/25 02/17/25 23:59 23:59 23:59 23:59 Intake Total 1160.2 1150 1450 670 Output Total 1750 400 450 Balance -589.8 750 1000 670 Meds/Results Medications: Active Medications Generic Name Dose Route Start Last Admin Trade Name Genaroq PRN Reason Stop Dose Admin Apixaban 5 mg 02/13/25 22:45 02/17/25 09:27 Apixaban 5 Mg Tablet PO 5 mg Q12HR ERNESTO Administration Bumetanide 2 mg 02/16/25 08:00 02/17/25 12:08 Bumetanide 1 Mg Tablet PO 2 mg 0800,1200 ERNESTO Administration Dextrose 12.5 gm 02/13/25 18:04 Dextrose 50% 25 Gm/50 Ml Syringe IV PUSH PRN PRN Hypoglycemia Protocol Escitalopram Oxalate 10 mg 02/14/25 09:00 02/17/25 09:27 Escitalopram Oxalate 10 Mg Tablet PO 10 mg DAILY ERNESTO Administration Glucagon 1 mg 02/13/25 18:04 Glucagon For Inj 1 Mg Vial IM PRN PRN Hypoglycemia Protocol Glucose 15 gm 02/13/25 18:04 Glucose Oral Gel 15 Gm Of Glucse In 37.5 Gm Tube PO PRN PRN Hypoglycemia Protocol Hydroxyzine HCl 10 mg 02/13/25 22:45 02/16/25 21:03 Hydroxyzine Hcl 10 Mg Tablet PO 10 mg HS ERNESTO Administration Dextrose 1,000 mls @ 100 mls/hr 02/13/25 18:04 Dextrose 5% 1,000 Ml IVPB PRN PRN Hypoglycemia Protocol Insulin Aspart 3 - 6 units 02/14/25 08:00 02/17/25 12:12 Insulin Aspart (*Bkc) 100 Units/Ml SUB-Q 4 units TIDWM [facility] Administration Protocol Insulin Aspart 5 units 02/15/25 17:00 02/17/25 12:13 Insulin Aspart (*Bkc) 100 Units/Ml 0.05 units/kg (5 units) 5 units SUB-Q Administration TIDWM ERNESTO Insulin Aspart 1 - 3 units 02/16/25 21:00 02/16/25 21:06 Insulin Aspart (*Bkc) 100 Units/Ml SUB-Q Not Given HS [facility] Protocol Insulin Glargine 21 units 02/16/25 18:00 02/16/25 17:18 Insulin Glargine (*Bkc) 100 Units/Ml SUB-Q 21 units 1800 ERNESTO Administration Losartan Potassium 100 mg 02/14/25 09:00 02/17/25 09:27 Losartan Potassium 100 Mg Tablet PO 100 mg DAILY ERNESTO Administration Metformin HCl 250 mg 02/15/25 08:15 02/17/25 09:28 Metformin Hcl 250 Mg Tablet PO 250 mg BIDWM ERNESTO Administration Metoprolol Tartrate 50 mg 02/13/25 22:40 02/17/25 09:27 Metoprolol Tartrate 50 Mg Tab PO 50 mg Q12HR ERNESTO Administration Nifedipine 60 mg 02/14/25 09:00 02/17/25 09:27 Nifedipine 30 Mg Tab.Er.24 PO 60 mg DAILY ERNESTO Administration Radiology Results: ITS Impressions Foot X-Ray 02/13/25 16:20 Impression: No acute fracture or malalignment. Chest X-Ray 02/13/25 21:12 IMPRESSION: There are patchy infiltrates bilaterally. Chest CT 02/16/25 13:29 IMPRESSION: 1. Patchy groundglass opacities with bilateral interlobular septal thickening compatible with interstitial lung disease; correlate with clinical history and prior imaging for stability or progression. 2: Cardiomegaly. 3: Enlarged thyroid gland with 1.7 cm hypodense left thyroid nodule. Recommend thyroid ultrasound for further characterization. Labs Labs: Laboratory Results - last 24 hr 02/16/25 02/17/25 02/17/25 16:30 07:47 11:32 POC Capillary Glucose 223 H 196 H 274 H
[2025-02-17 14:00] VITALS: BP 116/83; PULSE 76; RESP 16; TEMP 36.6; O2SAT 99
[2025-02-17] MEDS: INSULIN GLARGINE (*BKC) 100 UNITS/ML 21 UNITS SUB-Q (17:18)
[2025-02-17 20:50] VITALS: BP 105/58; PULSE 65; RESP 18; TEMP 36.5; O2SAT 98
[2025-02-18 05:12] VITALS: BP 120/78; PULSE 68; RESP 20; TEMP 36.4; O2SAT 98
[2025-02-18 09:23] VITALS: PULSE 68
[2025-02-18] MEDS: METOPROLOL TARTRATE 50 MG TAB PO (09:23)
[2025-02-18] MEDS: DOCUSATE SODIUM 100 MG CAPSULE PO (09:24)
[2025-02-18] MEDS: BUMETANIDE 1 MG TABLET 2 MG PO ×2 (09:24→12:00)
[2025-02-18] MEDS: APIXABAN 5 MG TABLET PO (09:24)
[2025-02-18] MEDS: LOSARTAN POTASSIUM 100 MG TABLET PO (09:24)
[2025-02-18] MEDS: ESCITALOPRAM OXALATE 10 MG TABLET PO (09:24)
[2025-02-18] MEDS: metFORMIN HCL 250 MG TABLET PO (09:24)
[2025-02-18] MEDS: INSULIN ASPART (*BKC) 100 UNITS/ML 7 UNITS SUB-Q ×2 (09:25→12:01)
--- NOTE | 2025-02-18 11:43 | P.DS_ITS ---
DS: Admitting Diagnosis Discharge Date 02/18/25 Admitting Diagnosis Dehydrated, toe wound DS: Discharge Diagnosis Discharge Diagnosis (1) Hyperosmolar hyperglycemic state (HHS): Code(s): E11.00 - Type 2 diabetes mellitus with hyperosmolarity without nonketotic hyperglycemic-hyperosmolar coma (NKHHC) Status: Acute DS: Summary Hospital Course Hospital Course: Discharge Diagnoses * Hyperosmolar hyperglycemic state (HHS)?? resolved * Newly diagnosed type 2 diabetes mellitus, poorly controlled (A1c >14%) * Pseudohyponatremia?secondary to hyperglycemia ? resolved * Acute kidney injury?due to dehydration ? resolved * Atrial fibrillation, rate controlled, on chronic anticoagulation * Chronic diastolic heart failure?with preserved EF * Moderate aortic stenosis * Moderate pulmonary hypertension * Interstitial lung disease (ILD)?? newly identified * Thyroid nodule (1.7 cm, left lobe) * Morbid obesity * Diabetic peripheral neuropathy Hospital Course The patient presented from assisted living with weakness, dehydration, and chronic toe wounds and was found to have?severe hyperglycemia (glucose 715 mg/dL)?with?HHS, pseudohyponatremia, and mild PAMELA. She was admitted to the ICU and treated with aggressive IV fluids and an insulin infusion. There was no evidence of DKA. Glucose levels steadily improved, and she was transitioned off the insulin drip to?basal?bolus subcutaneous insulin?with a consistent carbohydrate diet. Hemoglobin A1c was >14%, confirming long-standing uncontrolled diabetes. Diabetes education and dietary counseling were provided. Metformin was added, and basal insulin doses were progressively titrated. PAMELA resolved with IV fluids, and renal function returned to baseline. Sodium improved with correction of hyperglycemia. Chest X-ray showed bilateral patchy infiltrates. Viral testing was negative. Pro-BNP was elevated (3290). Echocardiogram demonstrated?preserved LVEF (55?60%),?diastolic dysfunction,?moderate aortic stenosis,?moderate pulmonary hypertension, and a?small pericardial effusion. CT chest revealed?patchy ground- glass opacities with interlobular septal thickening, compatible with?interstitial lung disease, as well as cardiomegaly and an incidental?1.7 cm left thyroid nodule. Bumetanide was resumed with clinical stability on room air. Atrial fibrillation remained rate controlled on metoprolol, and anticoagulation with apixaban was continued throughout hospitalization. The patient remained hemodynamically stable, tolerated diet, and was medically cleared for discharge once her assisted living facility was able to accept her back. discharged back to [facility]. [facility] * Echocardiogram (02/14/25):?EF 55?60%, diastolic dysfunction, moderate , moderate pulmonary HTN (PASP ?45 mmHg), mild MR/TR, small pericardial effusion * CT Chest:?Interstitial lung disease pattern; cardiomegaly; left thyroid nodule (1.7 cm) * Hemoglobin A1c:?>14% Discharge Medications * Insulin glargine (Lantus)?21 units daily * Insulin aspart (Novolog)?? with meals per sliding scale * Metformin?? continue as initiated inpatient * Apixaban 5 mg PO BID * Metoprolol tartrate 50 mg PO BID * Losartan 100 mg PO daily * Nifedipine ER 60 mg PO daily * Bumetanide?? resume home dosing * Escitalopram 10 mg PO daily * Hydroxyzine 10 mg PO HS PRN Discharge Instructions * Adhere strictly to insulin regimen and blood glucose monitoring * Follow consistent carbohydrate diet * Monitor for symptoms of hypoglycemia or hyperglycemia * Continue ambulation with walker as tolerated * Return for chest pain, shortness of breath, confusion, or uncontrolled glucose Follow-Up * Primary Care:?Within 1 week * Endocrinology / Diabetes Management:?As outpatient * Pulmonology:?Evaluation of interstitial lung disease * Thyroid Ultrasound:?Outpatient evaluation of thyroid nodule * Cardiology:?As outpatient for aortic stenosis and pulmonary hypertension * PT/OT:?Continue per facility Condition at Discharge Stable, alert, tolerating diet, glucose improving on basal?bolus insulin, renal function normalized, breathing comfortably on room air, medically stable for return to assisted living. Time Spent with Patient Time attestation: Total time spent providing and/or coordinating discharge services: DS: Data Data Completed and Pending Labs on day of discharge: Labs from last 24 hours 02/18/25 02/18/25 02/17/25 11:17 07:29 20:48 POC Capillary Glucose 198 H 129 H 184 H 02/17/25 02/17/25 16:38 11:32 POC Capillary Glucose 179 H 274 H Discharge Plan Discharge Attending physician on discharge: Weston Muller Consulting providers: Romelia Phillip Discharging Clinician: Weston Muller Anticipated Discharge Date/Time: 02/16/25 14:03 Patient Disposition: NH Halfway/Asst Living Activity: as tolerated Diet: heart healthy and diabetic Discharge Instructions: Please check glucose before meals and before bed. Record and bring into your doctor for review. Take precautions to avoid falls. Rise slowly from a lying or sitting position. Pause before standing or walking. Contact your doctor or call 911 and come to the Emergency Room if you have fevers, lightheadedness with standing or other worrisome symptoms. Continue routine wound care to the right 2nd toe wound Avoid NSAIDs (ibuprofen, naproxen, Aleve). Tylenol is safe to take. Follow-up with your primary care provider in 1-2 weeks. Please call for appointment. Follow-up with [facility] Maker in 2-4 weeks for some scarring noted on your chest CT scan. Thank you for using [facility] for your health care needs. Patient Instructions: Antibiotic Form, Foot Care for People with Diabetes (GEN), Hyperosmolar Hyperglycemic State (GEN), Managing Diabetes During Sick Days (GEN), Diabetic Hyperglycemia (GEN), Hemoglobin A1c (GEN), Diabetes and Your Mouth (GEN), Diabetes and Nutrition (GEN), Diabetes and Exercise (GEN) Patient Language: Estonian Stand Alone Forms: General Discharge Information Follow-up/Referrals: Tita,Som Otero DO [Primary Care Provider, Unknown] - Call for Appointment Socrates Nava MD [Physician, Pulmonology] - Call for Appointment Referral Note: Referral for ILD workup Discharge Medications: New insulin aspart U-100 100 unit/mL (3 mL) insulin pen 5 unit subcut TID Qty: 15 0RF insulin glargine [Lantus Solostar U-100 Insulin] 100 unit/mL (3 mL) insulin pen 21 unit subcut HS Qty: 15 0RF metformin 500 mg tablet 250 mg PO BIDWMEAL Qty: 60 0RF (DME) blood-glucose meter [OneTouch Verio Flex meter] Misc Qty: 1 0RF Rx Instructions: Starter Kit. May substitute to in-stock and/or covered by insurance meter. Use As Directed (DME) OneTouch Verio test strips Strip Qty: 1 0RF Rx Instructions: May substitute to in-stock and/or covered by insurance strips. Use As Directed (DME) Ketostix Strip Qty: 1 0RF Rx Instructions: As Directed (DME) pen needle, diabetic 32 gauge x 5/32 Needle Qty: 1 0RF Rx Instructions: As Directed (DME) lancets [OneTouch Delica Plus Lancet] 30 gauge misc Qty: 1 0RF Rx Instructions: May substitute to in-stock and/or covered by insurance lancets. Use As Directed Continued Eliquis 5 mg tablet 5 mg PO Q12H metoprolol tartrate 50 mg tablet 50 mg PO Q12H losartan 100 mg tablet 100 mg PO DAILY bumetanide 2 mg tablet 2 mg PO BID Rx Instructions: 0800 and 1200 per patient acetaminophen 325 mg tablet 325 mg PO Q4H ergocalciferol (vitamin D2) 1,250 mcg (50,000 unit) capsule 1,250 mcg PO WEEKLY hydroxyzine HCl 10 mg tablet 10 mg PO HS nifedipine 60 mg tablet extended release 60 mg PO DAILY desmopressin 0.1 mg tablet 0.1 mg PO DAILY escitalopram oxalate 10 mg tablet 10 mg PO DAILY Other Ambulatory Orders: US thyroid (Routine) Timeframe: 3 Weeks Location: Determined by Patient Ordered By: Weston Muller Date of admission: 02/13/25 20:16 Primary Care Provider: Tita,Som Otero Admitting Provider: Adela Samayoa Attending physician on admission: Adela Samayoa Condition: Stable
[2025-02-18 14:00] VITALS: BP 104/58; PULSE 77; RESP 17; TEMP 36.1; O2SAT 100
--- NOTE | 2025-02-20 14:27 | PCCDE ---
02/20: contact # - [place] Spoke with assessment director. Pt is in crossover program, RN's providing her insulin currently and will instruct her moving forward. Dir Nursing spoke with pt's PCP and AC checks are initiated. Pt will be retirement for some time due to reported toe. My call back information provided for pt prn.
== END 2025-02-18 16:15 | DRG 638 ==
LOC: ANHED 20:19 → ANHICU 21:15 → ANH3MEDSUR 02-14 11:18
PROVIDERS: Internal Medicine; Admitting Provider Internal Medicine; Emergency Provider Nurse Practitioner Family; PCP Internal Medicine; Visit Provider Internal Medicine
DX: E11.00 Type 2 diabetes mellitus with hyperosmolarity without nonketotic hyperglycemic-hyperosmolar coma (NKHHC) (principal); I50.32 Chronic diastolic (congestive) heart failure; J84.9 Interstitial pulmonary disease, unspecified; N17.9 Acute kidney failure, unspecified; Z68.41 Body mass index [BMI] 40.0-44.9, adult; E86.0 Dehydration; E11.42 Type 2 diabetes mellitus with diabetic polyneuropathy; I11.0 Hypertensive heart disease with heart failure; I35.0 Nonrheumatic aortic (valve) stenosis; R04.0 Epistaxis; I48.91 Unspecified atrial fibrillation; H91.93 Unspecified hearing loss, bilateral; E55.9 Vitamin D deficiency, unspecified; E04.1 Nontoxic single thyroid nodule; Z20.822 Contact with and (suspected) exposure to COVID-19; E66.01 Morbid (severe) obesity due to excess calories; Z66 Do not resuscitate; Z79.01 Long term (current) use of anticoagulants; S91.114D Laceration without foreign body of right lesser toe(s) without damage to nail, subsequent encounter
CPT/HCPCS: 36415; 71045; 71250; 73620; 80048; 80053; 80069; 81003; 82010; 82803; 82948; 83036; 83605; 83735; 83880; 84100; 84443; 85025; 85027; 87637; 87641; 96360; 96361; 97161; 97165; 99285; A9270; C8929; J1815; J3480; J7030; J7040; Q9957